=== PATIENT | male | born 1940 | race Caucasian/White ===

== ENCOUNTER 2016-10-05 13:31 | Inpatient (IN) | payer MEDICARE ==
[~2016-10-05] VITALS: Ht 170.2 cm; Wt 117.3 kg
[~2016-10-05 13:31] MED LIST: CIPR500T4 PO; TRAM50TA2 PO
[2016-10-05] MEDS ORDERED: PREDNISONE (14:11)
[2016-10-05] MEDS ORDERED: DIOVAN (14:12)
[2016-10-05] MEDS ORDERED: MELOXICAM (14:13)
[2016-10-05] MEDS ORDERED: ASPI-999 PO (14:13)
[2016-10-05] MEDS ORDERED: METOPROLOL (14:13)
--- NOTE | 2016-10-05 14:20 | ED General ---
General Chief Complaint: Lower Extremity Stated Complaint: LT LEG PAIN//FOOT DISCOLORED Nursing Triage Note: ARRIVED VIA WC FROM HOME. COMPLAINS OF PAIN IN LEFT GROIN TO KNEE STARTING SEVERAL DAYS AGO. Nursing Sepsis Screen: No Definite Risk Source of Information: Patient, Family Exam Limitations: No Limitations History of Present Illness Time Seen by Provider: 14:12 Initial Comments The patient is a 76-year-old white male who appears distressed. He apparently has been ill for 3 days or more but refused to come to the emergency room. He is hard to pin down relative to his complaint. He states that he hurts from the head to the knees bilaterally. He denies a fever. He has been scarcely able to stand or walk for the past 3 days. He does not disclose but the family states that about a month ago he saw Dr. Herring and was given meloxicam and steroids for about 2 weeks and improved. Once the medications were discontinued he slipped back to being as bad or worse than before. He apparently complains of left hip pain most often. There has been no fall or other injury. They also states that over the weekend and seemed as if his left foot was discolored. He describes pain from the left lower abdomen to the mid thigh. Timing/Duration: 3-4 Days Associated Systoms: Diaphoresis, Shortness of Air, Weakness, Other (pain from his head to his knees) Allergies and Home Medications Allergies Coded Allergies: Penicillins (Verified Allergy, Unknown, 08/04/05) Home Medications Aspirin 81 Mg Tab.chew, 81 MG PO DAILY, (Reported) [Diovan] , (Reported) [Meloxicam] , (Reported) [Metoprolol] , (Reported) [Prednisone] , (Reported) Constitutional: see HPI EENTM: no symptoms reported Respiratory: short of breath Cardiovascular: see HPI, edema, Hx of Intervention, vascular heart diseas Gastrointestinal: abdominal pain (LLQ) Genitourinary: no symptoms reported Musculoskeletal: muscle pain, muscle weakness Psychiatric/Neurological: Other (feet especially left discolored yesterday) Hematologic/Lymphatic: No Symptoms Reported Immunological/Allergic: no symptoms reported Past Wmomnwh-Zckxin-Uunilt Hx Patient Social History Alcohol Use: Denies Use Recreational Drug Use: No Smoking Status: Former Smoker Recent Foreign Travel: No Contact w/Someone Who Travel: No Recent Infectious Disease Expo: No Immunizations Up To Date Tetanus Booster (TDap): Unknown Surgeries HX Surgeries: Yes Surgeries: Adenoidectomy, Tonsillectomy Respiratory Hx Respiratory Disorders: No Cardiovascular Hx Cardiac Disorders: Yes Cardiac Disorders: Heart Attack, Hypertension Neurological Hx Neurological Disorders: No Reproductive System Hx Reproductive Disorders: No Sexually Transmitted Disease: No HIV/AIDS: No Genitourinary Hx Genitourinary Disorders: No Gastrointestinal Hx Gastrointestinal Disorders: No Musculoskeletal Hx Musculoskeletal Disorders: Yes (PAIN) Endocrine Hx Endocrine Disorders: No HEENT HX ENT Disorders: No Cancer Hx Cancer: No Psychosocial Hx Psychiatric Problems: No Integumentary HX Skin/Integumentary Disorder: No Blood Transfusions Hx Blood Disorders: No Adverse Reaction to a Blood Tr: No Family Medical History Significant Family History: No Pertinent Family Hx Physical Exam Vital Signs Vital Sign - Last 12Hours 10/05/16 14:05 Temp 97.3 Pulse 60 Resp 18 B/P (MAP) 91/74 Pulse Ox 98 Capillary Refill : Less Than 3 Seconds General Appearance: Moderate Distress (dyspnea and scarcely able to stand) Eyes: Bilateral Eye Normal Inspection HEENT: Normal ENT Inspection Neck: Other (very short neck no JVD) Respiratory: Other (barrel chest, tachypneic, decreased breath sounds) Cardiovascular: Tachycardia Gastrointestinal: Tenderness (left lower quadrant and over the pelvis) Back: Normal Inspection, No CVA Tenderness, No Vertebral Tenderness Extremity: Other (both feet are cool to touch and with 1-2+ edema. Palpable posterior tibial pulse on right) Neurologic/Psychiatric: Alert Lymphatic: No Adenopathy Progress/Results/Core Measures Results/Orders Lab Results Laboratory Tests Test 10/05/16 14:35 10/05/16 14:45 Range/Units Blood Gas Puncture Site RT RAD Blood Gas Patient Temperature 96.6 Arterial Blood pH 7.46 H 7.37-7.43 Arterial Blood Partial Pressure CO2 31 L 35-45 MMHG Arterial Blood Partial Pressure O2 88 79-93 MMHG Arterial Blood HCO3 22 L 23-27 MMOL/L Arterial Blood Total CO2 23.1 21.0-31.0 MMOL/L Arterial Blood Oxygen Saturation 98 94-100 % Arterial Blood Base Excess -1.4 -2.5-2.5 MMOL/L Karel Test YES-POS Blood Gas Ventilator Setting NO Blood Gas Inspired Oxygen ROOM AIR White Blood Count 13.9 H 4.3-11.0 10^3/uL Red Blood Count 4.19 L 4.35-5.85 10^6/uL Hemoglobin 13.7 13.3-17.7 G/DL Hematocrit 40 40-54 % Mean Corpuscular Volume 95 80-99 FL Mean Corpuscular Hemoglobin 33 25-34 PG Mean Corpuscular Hemoglobin Concent 35 32-36 G/DL Red Cell Distribution Width 14.9 H 10.0-14.5 % Platelet Count 210 130-400 10^3/uL Mean Platelet Volume 11.7 H 7.4-10.4 FL Neutrophils (%) (Auto) 76 H 42-75 % Lymphocytes (%) (Auto) 13 12-44 % Monocytes (%) (Auto) 10 0-12 % Eosinophils (%) (Auto) 1 0-10 % Basophils (%) (Auto) 0 0-10 % Neutrophils # (Auto) 10.6 H 1.8-7.8 X 10^3 Lymphocytes # (Auto) 1.7 1.0-4.0 X 10^3 Monocytes # (Auto) 1.3 H 0.0-1.0 X 10^3 Eosinophils # (Auto) 0.2 0.0-0.3 10^3/uL Basophils # (Auto) 0.0 0.0-0.1 10^3/uL Sodium Level 141 135-145 MMOL/L Potassium Level 3.9 3.6-5.0 MMOL/L Chloride Level 107 98-107 MMOL/L Carbon Dioxide Level 24 21-32 MMOL/L Anion Gap 10 5-14 MMOL/L Blood Urea Nitrogen 41 H 7-18 MG/DL Creatinine 1.50 H 0.60-1.30 MG/DL Estimat Glomerular Filtration Rate 45 BUN/Creatinine Ratio 27 H 0-20 Glucose Level 100 70-105 MG/DL Calcium Level 9.2 8.5-10.1 MG/DL Total Bilirubin 1.4 H 0.1-1.0 MG/DL Aspartate Amino Transf (AST/SGOT) 14 5-34 U/L Alanine Aminotransferase (ALT/SGPT) 14 0-55 U/L Alkaline Phosphatase 83 40-136 U/L Troponin I < 0.30 <0.30 NG/ML Total Protein 6.4 6.4-8.2 GM/DL Albumin 3.4 3.2-4.5 GM/DL My Orders Orders - STEPHAN FUNES MD Ekg Tracing (10/05/16 14:07) Arterial Blood Gas (10/05/16 14:07) Cbc With Automated Diff (10/05/16 14:07) Comprehensive Metabolic Panel (10/05/16 14:07) Troponin I (10/05/16 14:07) Chest 1 View, Ap/Pa Only (10/05/16 14:07) Hydromorphone Injection (Dilaudid Inject (10/05/16 15:30) Ct Abdomen/Pelvis Wo (10/05/16 15:44) Medications Given in ED Current Medications Medications Dose Ordered Sig/Bam Route Start Time Stop Time Status Last Admin Dose Admin Hydromorphone HCl 0.5 mg ONCE ONCE IVP 10/05/16 15:30 10/05/16 15:31 DC 10/05/16 15:44 0.5 MG Vital Signs/I&O Vital Sign - Last 12Hours 10/05/16 14:05 Temp 97.3 Pulse 60 Resp 18 B/P (MAP) 91/74 Pulse Ox 98 Blood Pressure Mean: 80 Departure Communication Progress Notes CT scan reviewed by me. There appears to be a left subcapital femur fracture. This is confirmed by phone call from [phone] Caceres who is on ortho call today. The patient will be admitted and definitive treatment scheduled for tomorrow afternoon. The patient and his family were notified of this. Impression Impression: Primary Impression: left subcapital femur fracture Disposition: ADMITTED INPATIENT Condition: Stable/Unchanged Decision to Admit Reason: Admit from ER (Trauma) Decision to Admit/Date: Oct 05, 2016 Time/Decision to Admit Time: 16:29 Departure-Patient Inst. Referrals: MARGARITA HERRING MD (PCP/Family) Primary Care Physician STEPHAN FUNES MD Oct 05, 2016 14:20
[2016-10-05 14:48] LABS: ABG BASE EXCESS -1.4 MMOL/L (-2.5-2.5); ABG HCO3 22 MMOL/L (23-27); ABG OXYGEN SATURATION 98 % (94-100); ABG PCO2 31 MMHG (35-45); ABG PH 7.46 (7.37-7.43); ABG PO2 88 MMHG (79-93); ABG TCO2 23.1 MMOL/L (21.0-31.0)
[2016-10-05 14:51] LABS: ALLENS TEST YES-POS; PATIENT TEMP 96.6
--- NOTE | 2016-10-05 14:52 | Diagnostic Imaging Report ---
EXAMINATION: Portable upright radiograph of the chest. INDICATION: Left groin pain. Findings: There is a old rib fracture and a posterior left seventh rib fracture seen. No focal infiltrates. The heart size is moderately enlarged. No pulmonary edema. No effusion or pneumothorax. Mediastinum and tho appear unremarkable. IMPRESSION: Cardiomegaly. Dictated by: Dictated on workstation # [id number]
[2016-10-05 14:56] LABS: BASOPHILS % (AUTO) 0 % (0-10); EOSINOPHILS # (AUTO) 0.2 10^3/uL (0.0-0.3); EOSINOPHILS % (AUTO) 1 % (0-10); LYMPHOCYTES # (AUTO) 1.7 X 10^3 (1.0-4.0); LYMPHOCYTES % (AUTO) 13 % (12-44); MEAN CORPUSCULAR HEMOGLOBIN 33 PG (25-34); MEAN CORPUSCULAR HGB CONC 35 G/DL (32-36); MEAN CORPUSCULAR VOLUME 95 FL (80-99); MEAN PLATELET VOLUME 11.7 FL (7.4-10.4); MONOCYTES # (AUTO) 1.3 X 10^3 (0.0-1.0); MONOCYTES % (AUTO) 10 % (0-12); NEUTROPHILS # (AUTO) 10.6 X 10^3 (1.8-7.8); NEUTROPHILS % (AUTO) 76 % (42-75); PLATELET COUNT 210 10^3/uL (130-400); RED BLOOD COUNT 4.19 10^6/uL (4.35-5.85); RED CELL DISTRIBUTION WIDTH 14.9 % (10.0-14.5); WHITE BLOOD COUNT 13.9 10^3/uL (4.3-11.0)
[2016-10-05 15:16] LABS: ALANINE AMINOTRANSFERASE 14 U/L (0-55); ALBUMIN 3.4 GM/DL (3.2-4.5); ANION GAP 10 MMOL/L (5-14); ASPARTATE AMINO TRANSFERASE 14 U/L (5-34); BILIRUBIN,TOTAL 1.4 MG/DL (0.1-1.0); BLOOD UREA NITROGEN 41 MG/DL (7-18); BUN/CREATININE RATIO 27 (0-20); CALCIUM 9.2 MG/DL (8.5-10.1); CARBON DIOXIDE 24 MMOL/L (21-32); CHLORIDE 107 MMOL/L (98-107); GFR ESTIMATED 45; GLUCOSE 100 MG/DL (70-105); HEMOLYSIS 15 (-100-29); LIPEMIA 24 (-100-49); POTASSIUM 3.9 MMOL/L (3.6-5.0); SODIUM 141 MMOL/L (135-145); TOTAL PROTEIN 6.4 GM/DL (6.4-8.2)
[2016-10-05 15:22] LABS: TROPONIN I < 0.30 NG/ML (<0.30)
[2016-10-05] MEDS ORDERED: HYDROmorphone (DILAUDID) 2 MG/ML VIAL IVP ONE (15:30)
--- NOTE | 2016-10-05 16:18 | Diagnostic Imaging Report ---
PROCEDURE: CT abdomen and pelvis without contrast. TECHNIQUE: Multiple contiguous axial images were obtained through the abdomen and pelvis without the use of intravenous contrast. INDICATION: Left lower quadrant abdominal pain. Hip pain. COMPARISON: 07/14/2015. FINDINGS: Included views of the lung bases are unremarkable. Note is made of bulky calcified aortic and coronary atherosclerosis. Calcified left hilar lymph nodes are also noted. CT abdomen: There is colonic diverticulosis, but no CT evidence of acute diverticulitis. Moderate air and stool are seen scattered throughout the colon. Small bowel loops are nondistended. Normal appendix cannot be adequately identified, but there is no pericecal inflammation. Hypodense hepatic and bilateral renal cysts are noted. The spleen, pancreas, and adrenal glands have an unremarkable noncontrast CT appearance. There is no loculated fluid collection, free fluid, nor free air within the abdomen. No abnormal mesenteric or retroperitoneal adenopathy is seen. There is diffuse calcified aortic and arterial atherosclerosis. CT pelvis: Urinary bladder is unopacified. No calculi are seen within the urinary bladder. There is no loculated fluid collection, free fluid, nor free air within the pelvis. No abnormal adenopathy is seen. Evaluation of the bony structures demonstrates acute oblique oriented fracture through the proximal left femur. The fracture line extends inferiorly from the subcapital region into the femoral neck. There is mild varus angulation of the distal fracture fragment and mild displacement at the fracture site. Femoroacetabular joint space is otherwise maintained. IMPRESSION: 1. Acute fracture of the proximal left femur as described above. 2. Moderate colonic air and stool. Please correlate for constipation. 3. Colonic diverticulosis, but no CT evidence of acute diverticulitis. Dictated by: Dictated on workstation # [id number]
[2016-10-05 17:30] VITALS: BP 144/71
[2016-10-05] MEDS ORDERED: HYDROmorphone (DILAUDID) 2 MG/ML VIAL IVP PRN (17:30)
[2016-10-05] MEDS ORDERED: CATHETER FLUSH 10 ML SYR IV PRN (18:00)
[2016-10-05] MEDS: NS IV 1000 ML 1,000 ML IV SCH (18:08)
[2016-10-05 19:11] VITALS: BP 139/65
[2016-10-05] MEDS ORDERED: LIDOCAINE UROJET 2% GEL 10 ML PKG TOP NR (19:15)
--- OUTSIDE RECORDS SUMMARY | 2016-10-05 23:54 | XMS REPORT | Continuity of Care Document ---
Author Author [facility] Organization [facility] Address Unknown Phone Unavailable Allergies Active Description Code Type Severity Reaction Onset Reported/Identified Relationship to Patient Clinical Status Yes Penicillins [id number] Drug Allergy Unknown N/A 08/04/2005 Medications Problems Date Dx Coded Attending Type Code Diagnosis Diagnosed By 07/07/2015 MARGARITA DUARTE MD Ot G47.33 OBSTRUCTIVE SLEEP APNEA (ADULT) (PEDIATR 07/07/2015 MARGARITA DUARTE MD, Ot G47.61 PERIODIC LIMB MOVEMENT DISORDER 07/16/2015 KEVIN CASTRO Ot I70.0 07/16/2015 KEVIN CASTRO Ot J32.9 07/16/2015 KEVIN CASTRO Ot K57.90 07/16/2015 KEVIN CASTRO Ot K76.89 07/16/2015 KEVIN CASTRO Ot M50.31 07/16/2015 KEVIN CASTRO Ot M50.32 07/16/2015 KEVIN CASTRO Ot S30.1XXA 07/16/2015 KEVIN CASTRO Ot S70.01XA 07/16/2015 KEVIN CASTRO Ot W06.XXXA 07/16/2015 KEVIN CASTRO Ot Y92.009 07/16/2015 KEVIN CASTRO Ot Y99.8 08/08/2015 KEVIN CASTRO Ot I70.0 ATHEROSCLEROSIS OF AORTA 08/08/2015 KEVIN CASTRO Ot J32.9 CHRONIC SINUSITIS, UNSPECIFIED 08/08/2015 KEVIN CASTRO Ot K57.90 DVRTCLOS OF INTEST, PART UNSP, W/O PERF 08/08/2015 KEVIN CASTRO Ot K76.89 OTHER SPECIFIED DISEASES OF LIVER 08/08/2015 KEVIN CASTRO Ot M50.31 OTHER CERVICAL DISC DEGENERATION, HIGH 08/08/2015 KEVIN CASTRO Ot M50.32 OTHER CERVICAL DISC DEGENERATION, MID- CE 08/08/2015 KEVIN CASTRO Ot S30.1XXA CONTUSION OF ABDOMINAL WALL, INITIAL ENC 08/08/2015 KEVIN CASTRO Ot S70.01XA CONTUSION OF RIGHT HIP, INITIAL ENCOUNTE 08/08/2015 KEVIN CASTRO Ot W06.XXXA FALL FROM BED, INITIAL ENCOUNTER 08/08/2015 KEVIN CASTRO Ot Y92.[address] IN [facility] NON-INSTIT[facility] ( PRIVATE 08/08/2015 KEVIN CASTRO Ot Y99.8 OTHER EXTERNAL CAUSE STATUS Procedures Results Encounters ACCT No. Visit Date/Time Discharge Status Pt. Type Provider Facility Loc./Unit Complaint [id number] 07/14/2015 13:42:00 2015 18:27:00 DIS Emergency KEVIN CASTRO [facility] ER [id number] 07/06/2015 20:30:00 2015 06:45:00 DIS Outpatient MARGARITA DUARTE MD [facility] SLEEP [id number] 10/10/2012 15:33:00 2012 23:59:59 CLS Outpatient
[2016-10-06] VITALS (7 sets, daily range): BP systolic 125–160; BP diastolic 56–73
[2016-10-06] MEDS: HYDROmorphone (DILAUDID) 2 MG/ML VIAL IV PRN ×3 (02:53→12:48)
[2016-10-06] MEDS ORDERED: MELO15TA14 PO (08:40)
[2016-10-06] MEDS ORDERED: PRD10T PO (08:40)
[2016-10-06] MEDS ORDERED: METO-272 PO (08:40)
[2016-10-06] MEDS ORDERED: VALS1TAB5 PO (08:40)
[2016-10-06] MEDS ORDERED: IBUP-30 PO (08:40)
[2016-10-06] MEDS ORDERED: ASPI-983 PO (08:40)
--- OUTSIDE RECORDS SUMMARY | 2016-10-06 08:58 | XMS REPORT | Continuity of Care Document ---
Author Author [facility] Organization [facility] Address Unknown Phone Unavailable Allergies Active Description Code Type Severity Reaction Onset Reported/Identified Relationship to Patient Clinical Status Yes Penicillins [id number] Drug Allergy Unknown N/A 08/04/2005 Medications Problems [...] KEVIN CASTRO Ot Y92.[address] IN [facility] NON-[facility] ( PRIVATE 08/08/2015 KEVIN CASTRO Ot Y99.8 OTHER EXTERNAL CAUSE STATUS Procedures Results Encounters ACCT No. Visit Date/Time Discharge Status Pt. Type Provider Facility Loc./Unit Complaint [id number] 07/14/2015 13:42:00 2015 18:27:00 DIS Emergency KEVIN CASTRO [facility] ER [id number] 07/06/2015 20:30:00 2015 06:45:00 DIS Outpatient MARGARITA DUARTE MD [facility] SLEEP [id number] 10/10/2012 15:33:00 2012 23:59:59 CLS Outpatient
[2016-10-06 09:14] LABS: BASOPHILS % (AUTO) 0 % (0-10); EOSINOPHILS # (AUTO) 0.4 10^3/uL (0.0-0.3); EOSINOPHILS % (AUTO) 3 % (0-10); LYMPHOCYTES # (AUTO) 1.4 X 10^3 (1.0-4.0); LYMPHOCYTES % (AUTO) 12 % (12-44); MEAN CORPUSCULAR HEMOGLOBIN 32 PG (25-34); MEAN CORPUSCULAR HGB CONC 33 G/DL (32-36); MEAN CORPUSCULAR VOLUME 96 FL (80-99); MEAN PLATELET VOLUME 11.5 FL (7.4-10.4); MONOCYTES # (AUTO) 0.9 X 10^3 (0.0-1.0); MONOCYTES % (AUTO) 8 % (0-12); NEUTROPHILS # (AUTO) 8.5 X 10^3 (1.8-7.8); NEUTROPHILS % (AUTO) 76 % (42-75); PLATELET COUNT 167 10^3/uL (130-400); RED BLOOD COUNT 4.06 10^6/uL (4.35-5.85); RED CELL DISTRIBUTION WIDTH 14.7 % (10.0-14.5); WHITE BLOOD COUNT 11.2 10^3/uL (4.3-11.0)
--- NOTE | 2016-10-06 09:19 | History & Physical-Hospitalist ---
HPI History of Present Illness: HPI/Chief Complaint CC: Left hip fracture HPI: This is a 76-year-old white male clinic patient of Dr. Herring the presents to the emergency room with complaints of pain all over her that workup ensued processing shortness of breath and overall poor clinical performance but ended up obtaining CT scan showing a left hip fracture that he had been stating he's had arthritis pain for 8 months and does not recall which fall that he could've sustained this left hip fracture during. He lives at home with his and it doesn't appear that he is very active. He is noncompliant with sleep apnea treatment since the mask makes and claustrophobic. At this current time he does have wheezing on exam which I will order DuoNeb nebulizer treatments and he is on the schedule for hip fracture repair by Dr. Caceres at 4 p.m. today. Source: patient Exam Limitations: no limitations Date Seen 10/06/16 Time Seen by Provider: 09:30 Attending Physician Dianna Buckner Floyd R MD Referring Physician Date of Admission Oct 05, 2016 at 16:35 Home Medications & Allergies Home Medications Reviewed patient Home Medication Reconciliation Form Allergies Allergies Coded Allergies Penicillins (Verified Allergy, Unknown, 10/05/16) Past Vvifnwu-Tttthr-Jxkafp Hx Patient Social History Marrital Status: Employed/Student: retired Alcohol Use: Denies Use Recreational Drug Use: No Smoking Status: Former Smoker Type Used: Cigarettes Physical Abuse Screen: No Sexual Abuse: No Recent Foreign Travel: No Contact w/other who traveled: No Recent Hopitalizations: No Recent Infectious Disease Expo: No Immunizations Up To Date Tetanus Booster (TDap): Unknown Seasonal Allergies Seasonal Allergies: No Surgeries HX Surgeries: Yes Surgeries: Adenoidectomy, Tonsillectomy Respiratory Hx Respiratory Disorders: Yes Respiratory Disorders: COPD, Sleep Apnea Cardiovascular Hx Cardiovascular Disorders: Yes Cardiac Disorders: Heart Attack, Hypertension Neurological Hx Neurological Disorders: No Reproductive System Hx Reproductive Disorders: No Sexually Transmitted Disease: No HIV/AIDS: No Genitourinary Hx Genitourinary Disorders: No Gastrointestinal Hx Gastrointestinal Disorders: No Musculoskeletal Hx Musculoskeletal Disorders: Yes (PAIN) Musculoskeletal Disorders: Arthritis Endocrine Hx Endocrine Disorders: No HEENT HX ENT Disorders: No Cancer Hx Cancer: No Psychosocial Hx Psychiatric Problems: No Integumentary HX Skin/Integumentary Disorder: No Blood Transfusions Hx Blood Disorders: No Adverse Reaction to a Blood Tr: No Family Medical History Significant Family History: No Pertinent Family Hx Family Hx: Patient reports no known family medical history. Review of Systems Date Seen by Provider: Oct 06, 2016 Time Seen by Provider: 09:00 Constitutional: no symptoms reported EENTM: no symptoms reported Respiratory: no symptoms reported Cardiovascular: no symptoms reported Gastrointestinal: no symptoms reported Genitourinary: no symptoms reported Musculoskeletal: joint pain Skin: no symptoms reported Psychiatric/Neurological: No Symptoms Reported All Other Systems Reviewed Negative Unless Noted: Yes Physical Exam Physical Exam Vital Signs Vital Sign - Last 12Hours 10/05/16 14:05 Temp 97.3 Pulse 60 Resp 18 B/P (MAP) 91/74 Pulse Ox 98 Capillary Refill : Less Than 3 SecondsLess Than 3 Seconds General Appearance: No Apparent Distress, WD/WN, Chronically ill, Obese Eyes: Bilateral Eye Normal Inspection, Bilateral Eye PERRL HEENT: PERRL/EOMI, Normal ENT Inspection, Pharynx Normal Neck: Full Range of Motion, Normal Inspection, Non Tender, Supple, Carotid Bruit Respiratory: Chest Non Tender, Normal Breath Sounds, No Accessory Muscle Use, No Respiratory Distress, Decreased Breath Sounds, Wheezing Cardiovascular: Regular Rate, Rhythm, No Edema, No Gallop, No JVD, No Murmur, Normal Peripheral Pulses Gastrointestinal: Normal Bowel Sounds, No Organomegaly, No Pulsatile Mass, Non Tender, Soft Back: Normal Inspection, No CVA Tenderness, No Vertebral Tenderness Extremity: Normal Capillary Refill, Normal Inspection, Normal Range of Motion, Non Tender, No Calf Tenderness, No Pedal Edema Neurologic/Psychiatric: Alert, Oriented x3, No Motor/Sensory Deficits, Normal Mood/Affect Skin: Normal Color, Warm/Dry Lymphatic: No Adenopathy Results Results/Procedures Lab Laboratory Tests 10/05/16 14:45 10/06/16 09:05 Assessment/Plan Admission Diagnosis Assessment: Acute left hip fracture Sleep apnea noncompliant with CPAP HTN OA Obesity Wheezing on exam Leukocytosis Assessment and Plan Plan: Proceed on with hip fracture repair since benefits outweigh medical risks and it is prudent to proceed on with repair Duoneb neb treatment now w/IS Monitor labs Close monitoring for MANUEL patient Clinical Quality Measures DVT/VTE Risk/Contraindication: Risk Factor Score Per Nursin RFS Level Per Nursing on Admit: 4+=Very High DIANNA BUCKNER DO Oct 06, 2016 09:19
[2016-10-06 09:32] LABS: CARBON DIOXIDE 23 MMOL/L (21-32); CHLORIDE 106 MMOL/L (98-107); POTASSIUM 4.1 MMOL/L (3.6-5.0); SODIUM 138 MMOL/L (135-145)
[2016-10-06 09:33] LABS: ALANINE AMINOTRANSFERASE 14 U/L (0-55); ALBUMIN 3.1 GM/DL (3.2-4.5); ANION GAP 9 MMOL/L (5-14); ASPARTATE AMINO TRANSFERASE 15 U/L (5-34); BILIRUBIN,TOTAL 1.8 MG/DL (0.1-1.0); BLOOD UREA NITROGEN 31 MG/DL (7-18); BUN/CREATININE RATIO 32 (0-20); CALCIUM 8.6 MG/DL (8.5-10.1); CREATININE SERUM 0.96 MG/DL (0.60-1.30); GFR ESTIMATED > 60; GLUCOSE 86 MG/DL (70-105); HEMOLYSIS 7 (-100-29); ICTERUS 1.7 (-100-1.9); LIPEMIA -1 (-100-49); TOTAL PROTEIN 5.4 GM/DL (6.4-8.2)
[2016-10-06] MEDS ORDERED: [UNRECOGNIZED DRUG - OTHER] PO PRN (09:45)
[2016-10-06] MEDS ORDERED: HYDROCHLOROTHIAZIDE PO PRN (09:45)
[2016-10-06] MEDS ORDERED: VALSARTAN PO PRN (09:45)
[2016-10-06] MEDS: RT-ALBUTEROL/IPRATROPIUM 3 ML (DUONEB) VIAL INH SCH ×4 (11:36→22:10)
[2016-10-06] MEDS: NS IV 1000 ML 1,000 ML IV SCH (12:49)
[2016-10-06] MEDS ORDERED: VANCOMYCIN INJECTION 1,000 MG in NS (IVPB) 250 ML IV NR (13:00)
[2016-10-06] MEDS: HYDROCHLOROTHIAZIDE 12.5 MG (HCTZ) CAP PO SCH (14:23)
[2016-10-06] MEDS: VALSARTAN 80 MG (DIOVAN) TAB PO SCH (14:23)
[2016-10-06] MEDS ORDERED: GENTAMICIN 40 MG/ML 2 ML INJ SDV ONE (15:15)
[2016-10-06] MEDS ORDERED: LIDOCAINE PF 0.5% 50 ML (XYLOCAINE) VIAL ONE (15:36)
[2016-10-06] MEDS ORDERED: SEVOFLURANE (ULTANE) 15 ML INHAL SOLN ONE ×3 (15:36→18:30)
[2016-10-06] MEDS ORDERED: ONDANSETRON 4 MG/2 ML (SDV) Z0FRAN ONE ×2 (15:36→17:46)
[2016-10-06] MEDS ORDERED: proPOfol 200 MG/20 ML (DIPRIVAN) VIAL IV ONE (15:36)
[2016-10-06] MEDS ORDERED: DEXAMETHASONE PF 10 MG/ML (DECADRON) VIAL ONE (15:36)
[2016-10-06] MEDS ORDERED: MIDAZOLAM 2 MG/2 ML (VERSED) VIAL ONE (15:37)
[2016-10-06] MEDS ORDERED: fentaNYL INJECTION 100 MCG/2 ML AMP ONE ×3 (15:37→17:46)
[2016-10-06] MEDS ORDERED: morphine INJ 10 MG/ML 1ML (SYR OR VIAL) ONE (17:46)
[2016-10-06] MEDS ORDERED: LACTATED RINGERS 2,000 ML IV ONE (18:30)
[2016-10-06] MEDS: morphine INJ 10 MG/ML 1ML (SYR OR VIAL) IVP PRN ×2 (18:56→19:00)
--- NOTE | 2016-10-06 19:18 | Diagnostic Imaging Report ---
INDICATION: Status post left hip arthroplasty. COMPARISON: CT abdomen and pelvis from 10/05/16. FINDINGS AND IMPRESSION: Single AP view of the pelvis demonstrates left unipolar arthroplasty with components in good position. No acute periprosthetic fracture. Dictated by: Dictated on workstation # [id number]
[2016-10-06] MEDS ORDERED: ONDANSETRON 4 MG/2 ML (SDV) Z0FRAN IVP PRN (20:00)
[2016-10-06] MEDS ORDERED: fentaNYL INJECTION 100 MCG/2 ML AMP IVP PRN (20:00)
[2016-10-07] VITALS (8 sets, daily range): BP systolic 94–146; BP diastolic 50–73
[2016-10-07] MEDS: LACTATED RINGERS 1,000 ML IV SCH ×3 (00:17→12:50)
[2016-10-07] MEDS: RT-ALBUTEROL/IPRATROPIUM 3 ML (DUONEB) VIAL INH SCH ×6 (02:05→22:10)
[2016-10-07] MEDS: VANCOMYCIN INJECTION 1,000 MG in NS (IVPB) 250 ML IV SCH ×2 (04:37→15:49)
[2016-10-07] MEDS: morphine INJ 4 MG/ML 1 ML (VIAL/SYRINGE) IVP PRN ×3 (04:37→20:11)
[2016-10-07 05:34] LABS: BASOPHILS % (AUTO) 0 % (0-10); EOSINOPHILS % (AUTO) 0 % (0-10); LYMPHOCYTES # (AUTO) 0.4 X 10^3 (1.0-4.0); LYMPHOCYTES % (AUTO) 3 % (12-44); MEAN CORPUSCULAR HEMOGLOBIN 32 PG (25-34); MEAN CORPUSCULAR HGB CONC 33 G/DL (32-36); MEAN CORPUSCULAR VOLUME 97 FL (80-99); MEAN PLATELET VOLUME 11.1 FL (7.4-10.4); MONOCYTES % (AUTO) 7 % (0-12); NEUTROPHILS # (AUTO) 12.8 X 10^3 (1.8-7.8); NEUTROPHILS % (AUTO) 90 % (42-75); PLATELET COUNT 167 10^3/uL (130-400); RED CELL DISTRIBUTION WIDTH 14.4 % (10.0-14.5); WHITE BLOOD COUNT 14.3 10^3/uL (4.3-11.0)
[2016-10-07 05:55] LABS: ALANINE AMINOTRANSFERASE 19 U/L (0-55); ALBUMIN 2.8 GM/DL (3.2-4.5); ANION GAP 8 MMOL/L (5-14); ASPARTATE AMINO TRANSFERASE 22 U/L (5-34); BILIRUBIN,TOTAL 1.5 MG/DL (0.1-1.0); BLOOD UREA NITROGEN 26 MG/DL (7-18); BUN/CREATININE RATIO 24; CALCIUM 8.4 MG/DL (8.5-10.1); CARBON DIOXIDE 25 MMOL/L (21-32); CHLORIDE 104 MMOL/L (98-107); CREATININE SERUM 1.09 MG/DL (0.60-1.30); GFR ESTIMATED > 60; GLUCOSE 128 MG/DL (70-105); POTASSIUM 4.8 MMOL/L (3.6-5.0); SODIUM 137 MMOL/L (135-145); TOTAL PROTEIN 5.4 GM/DL (6.4-8.2)
[2016-10-07] MEDS ORDERED: BACITRACIN OINTMENT 28 GM TUBE TOP SCH (07:15)
[2016-10-07] MEDS ORDERED: BACITRACIN OINTMENT 28 GM TUBE TOP PRN (07:30)
[2016-10-07] MEDS: HYDROCHLOROTHIAZIDE 12.5 MG (HCTZ) CAP PO SCH (08:30)
[2016-10-07] MEDS: VALSARTAN 80 MG (DIOVAN) TAB PO SCH (08:30)
[2016-10-07] MEDS: ASPIRIN 325 MG (5 GR) TABLET PO SCH (08:30)
[2016-10-07] MEDS: meTOproloL SUCCINATE 50 MG (TOPROL XL) TAB PO SCH (08:30)
--- NOTE | 2016-10-07 09:00 | Physical Therapy Evaluation ---
PT Evaluation-General Medical Diagnosis Admission Date Oct 05, 2016 at 16:35 Medical Diagnosis: left hip trochanteric fx Onset Date: Oct 06, 2016 Therapy Diagnosis Therapy Diagnosis: impaired transfers and gait Height/Weight Height (Feet): 5 Height (Inches): 7.00 Weight (Pounds): 258 Weight (Ounces): 8.0 Precautions Precautions/Isolations: Fall Prevention, Standard Precautions Weight Bear Status Weight Bearing Restriction: Weight Bearing/Tolerated Location Restriction: L LE Comments hip precautions Referral Reason for Referral: Evaluation/Treatment, Strengthening, Gait Medical History Pertinent Medical History: Arthritis, CAD, Fractures, HTN Social History Home: Single Level Current Living Status: Spouse Entry Into Home: Stairs With Railing PT Steps Into Home: 3 Pt reports his is not able to provide physical assistance. Prior/Core FIM Prior Level of Function Functional [place] Measure 0=Not Assessed/NA 4=Minimal Assistance 1=Total Assistance 5=Supervision or Setup 2=Maximal Assistance 6=Modified [place] 3=Moderate Assistance 7=Complete [place] Bed Mobility: 6 Transfers (B,C,W/C) (FIM): 6 Gait: 6 (crutches and/or cane) Locomotion: 6 PT Evaluation-Current Subjective Pt presented to the ER 10/05/16 with complaint of total body pain and shortness of breath. CT scan identified a left trochanteric fx. Pt possibly has had the fx for 8 months. Underwent bi polar hip arthroplasty on the (L) 10/06/16. Objective Patient Orientation: Normal For Age Attachments: Gonzalez Catheter, IV ROM/Strength ROM Lower Extremities knee flexion to 90 deg (B), (L) hip flex 80 deg, (R) hip flexion 90 deg, (L) hi abd 10 deg, (R) hip abd 20 deg Strenght Lower Extremities right LE gross 4/5, left hip flex 1/5, abd 1/5, knee ext 4/5 Sensory Vision: Functional Hearing: Functional Sensation Right Upper Extremit: Intact Sensation Left Upper Extremity: Intact Sensation Right Lower Extremit: Intact Sensation Left Lower Extremity: Intact Transfers Functional [place] Measure 0=Not Assessed/NA 4=Minimal Assistance 1=Total Assistance 5=Supervision or Setup 2=Maximal Assistance 6=Modified [place] 3=Moderate Assistance 7=Complete [place] Transfers (B, C, W/C) (FIM): 2 Scootin Supine to/from Sit: 2 Sit to/from Stand: 3 needs max physical assist to come to sitting and scoot to the edge of the bed. Sit to stand was stable and required moderate assist to rise to walker. Gait Mode of Locomotion: Walk Anticipated Mode of Locomotion: Walk Gait (FIM): 1 Distance (FIM): 1=up to 49 ft Distance: 3 steps Gait Level of Assist: 2 Gait Persons Needed: 1 Gait Assistive Device: FWW Comments/Gait Description slow and shuffled due to left hip weakness Balance Sitting Static: Fair Sitting Dynamic: Poor Standing Static: Poor Standing Dynamic: Poor Assessment/Needs Pt has LE weakness and lack of ROM in the (L) LE that is limiting bed mobility, transfers, and ambulation. Pt will benefit from physical therapy to restore functional mobility and facilitate a discharge to his prior living arrangement. Rehab Potential: Good Post Rehab Potential-Barriers: complex arthrities in multiple joints Equipment Needs FWW PT [employer] Goals [employer] Goals PT Usp Goals Time Frame: Oct 21, 2016 Transfers (B,C,W/C) (FIM): 5 Gait (FIM): 3 Gait distance (FIM): 6=890-99 ft Distance: 50 Gait Level of Assist: 5 Stairs (FIM): 2 # of Steps: 3 Stairs Level Of Assist: 4 PT Plan Problem List Problem List: Functional Strength, Balance, Gait, Transfer, Bed Mobility, ROM Treatment/Plan Treatment Plan: Continue Plan of Care Treatment Plan: Bed Mobility, Education, Functional Activity Omar, Functional Strength, Gait, Safety, Therapeutic Exercise, Transfers Treatment Duration: Oct 21, 2016 # of days/week 6 Visits Per Week: 11 Pt/Family Agrees w/Plan: Yes Safety Risks/Education Safety Risk Comments: hip precautions Patient Education: Gait Training, Transfer Techniques, Steps, Issued Written HEP Teaching Recipient: Patient Teaching Methods: Demonstration, Discussion Response to Teaching: Verbalize Understanding Discharge Recommendations Barriers to Progress arthritis in multiple joints Target Placement home Time/GCodes Time In: 750 Time Out: 830 Total Billed Treatment Time: 40 Total Billed Treatment visit, evaluation complex 40 minutes GUSTAVO DIAMOND PT Oct 07, 2016 09:00
[2016-10-07] MEDS: LACTULOSE SYRUP 10GM/15ML (ENULOSE) 30ML UDC PO SCH ×2 (09:47→19:59)
[2016-10-07] MEDS: SENNA W/DOCUSATE (SENOKOT S) TABLET PO SCH ×2 (09:47→19:59)
[2016-10-07] MEDS: HYDROcodone/APAP 5 MG/325 MG (LORTAB) TAB PO PRN ×3 (09:48→18:16)
[2016-10-07] MEDS: FLEET ENEMA ADULT 1 EA BTL PR SCH ×2 (10:00→19:54)
--- NOTE | 2016-10-07 10:43 | Anesthesia-General Post-Op ---
General Patient Condition Mental Status/LOC: Same as Preop Cardiovascular: Satisfactory Nausea/Vomiting: Absent Respiratory: Satisfactory Pain: Controlled Complications: Absent Post Op Complications Complications None Follow Up Care/Instructions Patient Instructions None needed. Anesthesia/Patient Condition Patient Condition Patient is doing well, no complaints, stable vital signs, no apparent adverse anesthesia problems. No complications reported per nursing. CONY MARIN CRNA Oct 07, 2016 10:43
--- NOTE | 2016-10-07 12:07 | Progress Note-Hospitalist ---
Progress Note HPI/CC on Admission CC: Left hip fracture HPI: This is a 76-year-old white male clinic patient of Dr. Herring the presents to the emergency room with complaints of pain all over her that workup ensued processing shortness of breath and overall poor clinical performance but ended up obtaining CT scan showing a left hip fracture that he had been stating he's had arthritis pain for 8 months and does not recall which fall that he could've sustained this left hip fracture during. He lives at home with his and it doesn't appear that he is very active. He is noncompliant with sleep apnea treatment since the mask makes and claustrophobic. At this current time he does have wheezing on exam which I will order DuoNeb nebulizer treatments and he is on the schedule for hip fracture repair by Dr. Caceres at 4 p.m. today. Progress Notes/Assess & Plan Date Seen 10/07/16 Time Seen by Provider: 10:00 Admission Dx/Process Assessment: Acute left hip fracture Sleep apnea noncompliant with CPAP HTN OA Obesity Wheezing on exam Leukocytosis Diagonsis/Assessment & Plan Chart Review: Had uncomplicated left hip fracture repair yesterday WBC 14.3 Hgb 11.5 CMP normal SW Review: Surgery yesterday Qualified for rehab Patient Interview: Pt was sitting upon interview and looks well Pt states that he has been in pain since 1964. Pt does not mind DC Gonzalez whenever possible Pt confirms using IS and receiving breathing treatments. Physical exam stable. Lungs sound much improved. Pt states that his last BM was four days ago. Pt was informed that he will be in In-pt rehab before DC. This will help expedite his recovery Labs were discussed and they look good No fever, vital signs stable, pleasant, improved, up in chair Regular rate and rhythm, clear to auscultation bilaterally improved wheezes from yesterday No edema Laboratory Tests 10/07/16 05:05 Assessment: Acute left hip fracture s/p repair POD # 1 Sleep apnea noncompliant with CPAP HTN OA Obesity Wheezing on exam improved Leukocytosis Plan: Proceeded on with hip fracture repair yesterday since benefits outweigh medical risks and it was prudent to proceed on with repair Duoneb neb treatment now w/IS Close monitoring for MANUEL patient Heplock IVF Lactulose/Miralax suppository Senna Check labs in am IRU tomorrow Scribed by Andreia La under the direct supervision of Dr. Weeks. GARIMA WEEKS DO Oct 07, 2016 12:07
[2016-10-07] MEDS: HYDROmorphone (DILAUDID) 2 MG/ML VIAL IV PRN (12:51)
--- NOTE | 2016-10-07 13:27 | Physical Therapy Daily Note ---
PT Daily Note-Current Subjective Patient in recliner pre tx, lots of family in the room. Patient has pain of 7/ 10. He has a lot of drainage in his left hip and the bandage and gown are pretty saturated. Will get patient back to bed so nurse can work on his dressings. Appearance Patient BTB post tx with nurse working on dressings, family in the room. Mental Status Patient Orientation: Normal For Age Attachments: Gonzalez Catheter, IV Transfers Functional [place] Measure 0=Not Assessed/NA 4=Minimal Assistance 1=Total Assistance 5=Supervision or Setup 2=Maximal Assistance 6=Modified [place] 3=Moderate Assistance 7=Complete IndependenceIRFPAI Quality Coding Scale 6 Independent with activity with or without an assistive device 5 Patient requires set up or clean up by helper. Patient completes activity by themselves 4 Supervision or touching assist (CGA). [place] provide cues , steadying assist 3 The helper provides less than half the effort to complete the activity 2 The helper provides more than half the effort to complete the activity 1 Dependent. The helper does all the effort to complete an activity 7 Patient refused to complete or attempt activity 9 The patient did not perform the activity before the current illness or injury 88 Not attempted due to Medical conditions or safety concerns Transfers (B, C, W/C) (FIM): 4 Scootin Rollin Supine to/from Sit: 4 Sit to/from Stand: 4 min assist to help get left leg back into bed Gait Training Gait (FIM): 1 Distance: 15' Gait Level of Assist: 4 Gait Persons Needed: 1 Gait Assistive Device: FWW Patient ambulated around the bed to the other side, antalgic and slow, good stepping Treatments bed mobility and transfers, ambulation Assessment Current Status: Fair Progress improved ambulation and endurance PT Snf Goals Weeder Thinner Goals PT Weeder Thinner Goals Time Frame: Oct 21, 2016 Transfers (B,C,W/C) (FIM): 5 Gait (FIM): 3 Gait distance (FIM): 2=065-41 ft Distance: 50 Gait Level of Assist: 5 Stairs (FIM): 2 # of Steps: 3 Stairs Level Of Assist: 4 PT Plan Problem List Problem List: Activity Tolerance, Functional Strength, Safety, Balance, Gait, Transfer, Bed Mobility, ROM Treatment/Plan Treatment Plan: Continue Plan of Care Treatment Plan: Bed Mobility, Education, Functional Activity Omar, Functional Strength, Gait, Safety, Therapeutic Exercise, Transfers Treatment Duration: Oct 21, 2016 Visits Per Week: 11 Safety Risks/Education Patient Education: Gait Training, Transfer Techniques, Correct Positioning, Safety Issues Teaching Recipient: Patient Teaching Methods: Demonstration, Discussion Response to Teaching: Reinforcement Needed Time/GCodes Time In: 1310 Time Out: 1325 Total Billed Treatment Time: 15 Total Billed Treatment 1 visit GT 15' TARAS VEGA PT Oct 07, 2016 13:27
[2016-10-07] MEDS: BISACODYL 10 MG SUPP (DULCOLAX) PR SCH (19:54)
[2016-10-08] MEDS: HYDROcodone/APAP 5 MG/325 MG (LORTAB) TAB PO PRN ×2 (00:05→19:26)
[2016-10-08 00:44] VITALS: BP 108/61
[2016-10-08] MEDS: LACTATED RINGERS 1,000 ML IV SCH (00:44)
[2016-10-08] MEDS: RT-ALBUTEROL/IPRATROPIUM 3 ML (DUONEB) VIAL INH SCH ×6 (02:00→22:00)
[2016-10-08] MEDS: VANCOMYCIN INJECTION 1,000 MG in NS (IVPB) 250 ML IV SCH (03:44)
[2016-10-08 04:01] VITALS: BP 101/65
[2016-10-08] MEDS ORDERED: ONDANSETRON 4 MG/2 ML (SDV) Z0FRAN ONE (04:28)
[2016-10-08] MEDS ORDERED: ONDANSETRON 4 MG/2 ML (SDV) Z0FRAN IVP PRN (04:45)
--- NOTE | 2016-10-08 05:18 | Progress Note (SOAP) ---
Subjective Time Seen by Provider: 05:14 Subjective/Events-last exam POD #2, s/p left hemiarthroplasty Transferred to chair yesterday Complains of mild left leg paresthesia Review of Systems Gastrointestinal: Nausea, Vomiting Musculoskeletal: leg pain, No: back pain Neurological: No: Change in speech, Confusion Objective Exam Vital Signs Date Time Temp Pulse Resp B/P (MAP) Pulse Ox O2 Delivery O2 Flow Rate FiO2 10/08/16 04:01 98.6 71 19 101/65 94 Room Air 10/08/16 00:44 98.4 72 19 108/61 96 Room Air 10/07/16 22:17 127/73 10/07/16 22:10 Room Air 10/07/16 20:31 97.3 72 24 95 Room Air 10/07/16 19:56 Room Air 10/07/16 18:47 96 Room Air 10/07/16 16:29 97.0 76 18 101/62 96 Room Air 10/07/16 14:35 94 Room Air 10/07/16 11:58 97.8 72 20 94/50 95 Room Air 10/07/16 11:02 95 Room Air 10/07/16 08:45 98 Room Air 10/07/16 07:40 98.9 83 20 112/62 98 Room Air 10/07/16 06:28 95 Room Air 10/07/16 06:00 99.7 92 24 146/56 98 Room Air I & O 10/08/16 07:00 Intake Total 2090 ml Output Total 1025 ml Balance 1065 ml Capillary Refill : Less Than 3 SecondsLess Than 3 Seconds General Appearance: No Apparent Distress, WD/WN Respiratory: No Respiratory Distress Gastrointestinal: non tender, soft Extremity: Normal Capillary Refill, No Calf Tenderness Neurologic/Psychiatric: Alert, Oriented x3, No Motor/Sensory Deficits, Normal Mood/Affect, internal audit director II-XII Norm as Tested Skin: Other (Dressing CDI) Results Lab Microbiology 10/05/16 MRSA Screen - Final, Complete MRSA not isolated Assessment/Plan Assessment/Plan Assess & Plan/Chief Complaint Left hip fracture, s/p hemiarthroplasty PT to ambulate today Patient accepted to IRU Follow up with Dr. Caceres in 2 weeks Continue hip precautions Clinical Quality Measures DVT/VTE Risk/Contraindication: Risk Factor Score Per Nursin RFS Level Per Nursing on Admit: 4+=Very High JULIO BECKER Oct 08, 2016 05:18
[2016-10-08 06:07] LABS: BASOPHILS % (AUTO) 0 % (0-10); EOSINOPHILS # (AUTO) 0.1 10^3/uL (0.0-0.3); EOSINOPHILS % (AUTO) 1 % (0-10); LYMPHOCYTES # (AUTO) 0.7 X 10^3 (1.0-4.0); LYMPHOCYTES % (AUTO) 5 % (12-44); MEAN CORPUSCULAR HEMOGLOBIN 32 PG (25-34); MEAN CORPUSCULAR HGB CONC 33 G/DL (32-36); MEAN CORPUSCULAR VOLUME 96 FL (80-99); MEAN PLATELET VOLUME 11.8 FL (7.4-10.4); MONOCYTES # (AUTO) 1.4 X 10^3 (0.0-1.0); MONOCYTES % (AUTO) 9 % (0-12); NEUTROPHILS % (AUTO) 85 % (42-75); PLATELET COUNT 164 10^3/uL (130-400); RED BLOOD COUNT 3.43 10^6/uL (4.35-5.85); RED CELL DISTRIBUTION WIDTH 14.4 % (10.0-14.5); WHITE BLOOD COUNT 15.3 10^3/uL (4.3-11.0)
[2016-10-08 06:28] LABS: ALBUMIN 2.9 GM/DL (3.2-4.5); BILIRUBIN,TOTAL 1.6 MG/DL (0.1-1.0); CALCIUM 8.4 MG/DL (8.5-10.1); CREATININE SERUM 1.2 MG/DL (0.60-1.30); POTASSIUM 4.3 MMOL/L (3.6-5.0); TOTAL PROTEIN 5.5 GM/DL (6.4-8.2)
[2016-10-08 08:00] VITALS: BP 153/84
[2016-10-08] MEDS ORDERED: METOCLOPRAMIDE INJ 10 MG/2 ML (REGLAN) IVP ONE (08:15)
[2016-10-08] MEDS ORDERED: METOCLOPRAMIDE INJ 10 MG/2 ML (REGLAN) IVP SCH (08:21)
[2016-10-08] MEDS: HYDROmorphone (DILAUDID) 2 MG/ML VIAL IV PRN (09:56)
--- NOTE | 2016-10-08 10:49 | Progress Note-Hospitalist ---
Progress Note HPI/CC on Admission CC: Left hip fracture HPI: This is a 76-year-old white male clinic patient of Dr. Herring the presents to the emergency room with complaints of pain all over her that workup ensued processing shortness of breath and overall poor clinical performance but ended up obtaining CT scan showing a left hip fracture that he had been stating he's had arthritis pain for 8 months and does not recall which fall that he could've sustained this left hip fracture during. He lives at home with his and it doesn't appear that he is very active. He is noncompliant with sleep apnea treatment since the mask makes and claustrophobic. At this current time he does have wheezing on exam which I will order DuoNeb nebulizer treatments and he is on the schedule for hip fracture repair by Dr. Caceres at 4 p.m. today. Progress Notes/Assess & Plan Date Seen 10/08/16 Time Seen by Provider: 10:00 Admission Dx/Process Assessment: Acute left hip fracture Sleep apnea noncompliant with CPAP HTN OA Obesity Wheezing on exam Leukocytosis Diagonsis/Assessment & Plan Chart Review: RN called due to pt experiencing nausea at 0415 then at 0800, he started vomiting, so I ordered NPO, Reglan, and checking abdominal X-ray Consulting Dr. Koroma for ileus. Rehab on hold until tomorrow process tech: Pt's BP it the 150s Pt is okay on Dilaudid RN will hold off on pills until this afternoon Patient Interview: Pt was on the toilet upon interview. Pt states that he is having a lot of results from SSE. Physical exam stable Pt states that he is experiencing pain and would like pain meds No fever, vital signs stable, pleasant, improved, up on commode Regular rate and rhythm, clear to auscultation bilaterally improved wheezes No edema Laboratory Tests 10/08/16 05:50 Assessment: Acute left hip fracture s/p repair POD # 2 Sleep apnea noncompliant with CPAP HTN OA Obesity Wheezing on exam improved Leukocytosis s/p ileus appears improved since SSE produced a lot of results but will keep NPO and Reglan empirically and await Dr Koroma results and check Xray Plan: IRU tomorrow if ileus completely resolved Surgery consult to be sure ileus is resolved Catheter DC Pain meds Scribed by Andreia La under the direct supervision of Dr. Weeks. GARIMA WEEKS DO Oct 08, 2016 10:49
--- NOTE | 2016-10-08 11:34 | Diagnostic Imaging Report ---
EXAMINATION: Supine view of the abdomen. INDICATION: Post operative abdominal pain. FINDINGS: There is moderate dilatation of the stomach with mostly gas content suggested. The small bowel and large bowel demonstrate no significant dilatation. There is slightly prominent small bowel gas content, however. 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 Degenerative changes in the lumbar spine are seen. IMPRESSION: Dilated gas-filled stomach, in the postoperative setting, is presumably related to ileus. Dictated by: Dictated on workstation # [id number]
[2016-10-08 11:54] VITALS: BP 111/66
[2016-10-08] MEDS: BISACODYL 10 MG SUPP (DULCOLAX) PR SCH ×2 (11:58→20:23)
[2016-10-08] MEDS: METOCLOPRAMIDE INJ 10 MG/2 ML (REGLAN) IVP SCH ×2 (12:02→17:30)
[2016-10-08] MEDS: ASPIRIN 325 MG (5 GR) TABLET PO SCH (12:02)
[2016-10-08] MEDS: HYDROCHLOROTHIAZIDE 12.5 MG (HCTZ) CAP PO SCH (12:02)
[2016-10-08] MEDS: SENNA W/DOCUSATE (SENOKOT S) TABLET PO SCH ×2 (12:02→20:23)
[2016-10-08] MEDS: VALSARTAN 80 MG (DIOVAN) TAB PO SCH (12:02)
[2016-10-08] MEDS: LACTULOSE SYRUP 10GM/15ML (ENULOSE) 30ML UDC PO SCH ×2 (12:03→20:23)
[2016-10-08] MEDS: meTOproloL SUCCINATE 50 MG (TOPROL XL) TAB PO SCH (12:03)
--- NOTE | 2016-10-08 12:08 | Consultation ---
History of Present Illness History of Present Illness Patient Consulted On(rashid/time) 10/08/16 12:03 Date Seen by Provider: Oct 08, 2016 Time Seen by Provider: 11:00 Reason for Visit: postop ileus History of Present Illness s/p left hip ORIF POD#3. mild abdominal distention and nausea. had large BM today and feels better. was not ambulating well at first but is now with PT. Allergies and Home Medications Allergies Coded Allergies: Penicillins (Verified Allergy, Unknown, 10/05/16) Home Medications Aspirin 81 Mg Tablet.dr, 81 MG PO DAILY, (Reported) Ibuprofen 200 Mg Tablet, 400 MG PO Q6H PRN for PAIN-MILD, (Reported) TAKES 2 (200MG) TABLETS Meloxicam 15 Mg Tablet, 15 MG PO DAILY, (Reported) Metoprolol Succinate 50 Mg Tab.er.24h, 50 MG PO DAILY, (Reported) Prednisone 10 Mg Tab, PO UD for 11 Days, (Reported) TAKE 2 (10MG) TABS 3X DAILY X 4 DAYS THEN TAKE 1 (10MG) TABLET 3X DAILY X 7 DAYS FILLED 09-23-16 Valsartan/Hydrochlorothiazide 1 Each Tablet, 1 TAB PO DAILY PRN for BLOOD PRESSURE, (Reported) LAST FILLED 07-30-16 #30 Past Jrgnxgh-Urvdxp-Ntjaho Hx Patient Social History Alcohol Use: Denies Use Recreational Drug Use: No Smoking Status: Former Smoker Type Used: Cigarettes Recent Foreign Travel: No Contact w/Someone Who Travel: No Recent Infectious Disease Expo: No Recent Hopitalizations: No Physical Abuse Screen: No Sexual Abuse: No Immunizations Up To Date Tetanus Booster (TDap): Unknown Seasonal Allergies Seasonal Allergies: No Surgeries HX Surgeries: Yes Surgeries: Adenoidectomy, Tonsillectomy Respiratory Hx Respiratory Disorders: Yes Respiratory Disorders: Sleep Apnea Cardiovascular Hx Cardiac Disorders: Yes Cardiac Disorders: Heart Attack, Hypertension Neurological Hx Neurological Disorders: No Reproductive System Hx Reproductive Disorders: No Sexually Transmitted Disease: No HIV/AIDS: No Genitourinary Hx Genitourinary Disorders: No Gastrointestinal Hx Gastrointestinal Disorders: No Musculoskeletal Hx Musculoskeletal Disorders: Yes (PAIN) Musculoskeletal Disorders: Arthritis Endocrine Hx Endocrine Disorders: No HEENT HX ENT Disorders: No Cancer Hx Cancer: No Psychosocial Hx Psychiatric Problems: No Integumentary HX Skin/Integumentary Disorder: No Blood Transfusions Hx Blood Disorders: No Adverse Reaction to a Blood Tr: No Family Medical History Significant Family History: No Pertinent Family Hx Family Medial History: Patient reports no known family medical history. Review of Systems-General Gastrointestinal: nausea All Other Systems Reviewed Negative Unless Noted: Yes (Negative excepted noted.) Physical Exam-General Problems Physical Exam Vital Signs Vital Sign - Last 12Hours 10/05/16 14:05 Temp 97.3 Pulse 60 Resp 18 B/P (MAP) 91/74 Pulse Ox 98 Capillary Refill : Less Than 3 SecondsLess Than 3 Seconds General Appearance: WD/WN HEENT: PERRL/EOMI Neck: non-tender, full range of motion Respiratory: chest non-tender, lungs clear Cardiovascular: normal peripheral pulses Gastrointestinal: normal bowel sounds, soft, distended Back: normal inspection Extremities: normal range of motion, non-tender Neurologic/Psychiatric: alert, oriented x 3 Skin: normal color Lymphatic: no adenopathy Assessment/Plan Assessment/Plan Admission Diagnosis/Plan post-op ileus. resolving with ambulation. start clears and advance as tolerated. continue ambulation with PT Clinical Quality Measures DVT/VTE Risk/Contraindication: Risk Factor Score Per Nursin RFS Level Per Nursing on Admit: 4+=Very High Copy Copies To 1: GRZEGORZ WHITTEN MD, TAKAAKI MD Oct 08, 2016 12:08
--- NOTE | 2016-10-08 12:23 | Physical Therapy Daily Note ---
PT Daily Note-Current Subjective Agrees to PT. Feeling better, after having BM earlier today. Mental Status Patient Orientation: Person, Place, Time, Situation Transfers Functional [place] Measure 0=Not Assessed/NA 4=Minimal Assistance 1=Total Assistance 5=Supervision or Setup 2=Maximal Assistance 6=Modified [place] 3=Moderate Assistance 7=Complete IndependenceIRFPAI Quality Coding Scale 6 Independent with activity with or without an assistive device 5 Patient requires set up or clean up by helper. Patient completes activity by themselves 4 Supervision or touching assist (CGA). [place] provide cues , steadying assist 3 The helper provides less than half the effort to complete the activity 2 The helper provides more than half the effort to complete the activity 1 Dependent. The helper does all the effort to complete an activity 7 Patient refused to complete or attempt activity 9 The patient did not perform the activity before the current illness or injury 88 Not attempted due to Medical conditions or safety concerns Sit to/from Stand: 4 (skilled cues for hand placement and sequencing; needs light lifting assit. ) Weight Bearing Weight Bearing Restriction: Weight Bearing/Tolerated Location Restriction: L LE Gait Training Gait (FIM): 2 Distance (FIM): 7=003-52 ft Distance: 75 ft Gait Assistive Device: FWW Slow gait slightly forward flexed at the hips. Decreased foot clearance B. Exercises Seated Therapy Exercises: Ankle pumps, Long arc quads, Hip abd/add Seated Reps: 10 (To increase strength to improve transfers and gait. ) Assessment Current Status: Good Progress Increased gait distance. PT Power Electronics Research Engineer Goals Long-Term Goals PT Power Electronics Research Engineer Goals Time Frame: Oct 21, 2016 Transfers (B,C,W/C) (FIM): 5 Gait (FIM): 3 Gait distance (FIM): 4=794-41 ft Distance: 50 Gait Level of Assist: 5 Stairs (FIM): 2 # of Steps: 3 Stairs Level Of Assist: 4 PT Plan Problem List Problem List: Activity Tolerance, Functional Strength, Safety, Balance, Gait, Transfer Treatment/Plan Treatment Plan: Continue Plan of Care Treatment Plan: Bed Mobility, Education, Functional Activity Omar, Functional Strength, Gait, Safety, Therapeutic Exercise, Transfers Treatment Duration: Oct 21, 2016 Visits Per Week: 11 Safety Risks/Education Patient Education: Transfer Techniques, Safety Issues Teaching Recipient: Patient Teaching Methods: Demonstration, Discussion Response to Teaching: Reinforcement Needed Time/GCodes Time In: 1050 Time Out: 1115 Total Billed Treatment Time: 25 Total Billed Treatment visit GT 15 EX 10 YESSI OTOOLE PT Oct 08, 2016 12:23
--- NOTE | 2016-10-08 15:38 | Physical Therapy Daily Note ---
PT Daily Note-Current Subjective Pt. denies any pain while at rest but states after ther ex begins that he has pain at 5/10 l hip. Agrees to Rx. States he feels all is going well except he just hasnt slept well Pain Numeric Pain Scale: 5-Moderate Pain Location: Left Location Body Site: Hip Pain Description: Ache Mental Status Patient Orientation: Normal For Age Transfers Functional [place] Measure 0=Not Assessed/NA 4=Minimal Assistance 1=Total Assistance 5=Supervision or Setup 2=Maximal Assistance 6=Modified [place] 3=Moderate Assistance 7=Complete IndependenceIRFPAI Quality Coding Scale 6 Independent with activity with or without an assistive device 5 Patient requires set up or clean up by helper. Patient completes activity by themselves 4 Supervision or touching assist (CGA). [place] provide cues , steadying assist 3 The helper provides less than half the effort to complete the activity 2 The helper provides more than half the effort to complete the activity 1 Dependent. The helper does all the effort to complete an activity 7 Patient refused to complete or attempt activity 9 The patient did not perform the activity before the current illness or injury 88 Not attempted due to Medical conditions or safety concerns Transfers (B, C, W/C) (FIM): 3 Scootin Rollin Supine to/from Sit: 3 (required assist of one hand to come up to sit) Sit to/from Stand: 5 Bed to/from Chair: 4 Weight Bearing Weight Bearing Restriction: Weight Bearing/Tolerated Location Restriction: L LE Gait Training Does the Patient Walk?: Yes Gait (FIM): 5 Distance (FIM): 3=150 ft (300) Gait Level of Assist: 5 Gait Persons Needed: 1 Gait Assistive Device: FWW slow, heavy wt bearing on FWW , kyphotic Exercises Supine Ex: Ankle pumps, Quad Set, Rolling, Glut sets, Heel Slides, Short Arc Quads, Scooting, Straight leg raise (assist), Hip abd/add (assist) Supine Reps: 15 Seated Therapy Exercises: Ankle pumps, Sit to stand, Long arc quads Seated Reps: 8 Assessment Current Status: Good Progress progressing well PT Usp Goals Usp Goals PT Usp Goals Time Frame: Oct 21, 2016 Transfers (B,C,W/C) (FIM): 5 Rollin Gait (FIM): 3 Gait distance (FIM): 5=132-60 ft Distance: 50 Gait Level of Assist: 5 Stairs (FIM): 2 # of Steps: 3 Stairs Level Of Assist: 4 PT Plan Treatment/Plan Treatment Plan: Continue Plan of Care Treatment Plan: Bed Mobility, Education, Functional Activity Omar, Functional Strength, Gait, Safety, Therapeutic Exercise, Transfers Treatment Duration: Oct 21, 2016 Visits Per Week: 11 Safety Risks/Education Patient Education: Gait Training, Transfer Techniques Teaching Recipient: Patient Teaching Methods: Demonstration, Discussion Response to Teaching: Verbalize Understanding, Return Demonstration, Reinforcement Needed Time/GCodes Time In: 1500 Time Out: 1530 Total Billed Treatment Time: 30 Total Billed Treatment 1,GT15m,EX15m G Codes Necessary: ELMO Drake MANAGER COSMETICS Oct 08, 2016 15:38
[2016-10-08 15:44] VITALS: BP 101/60
[2016-10-09] VITALS: BP 100/55
[2016-10-09] MEDS: METOCLOPRAMIDE INJ 10 MG/2 ML (REGLAN) IVP SCH ×2 (00:07→05:32)
[2016-10-09] MEDS: RT-ALBUTEROL/IPRATROPIUM 3 ML (DUONEB) VIAL INH SCH ×3 (02:00→10:52)
[2016-10-09 04:10] VITALS: BP 106/55
[2016-10-09 05:32] LABS: BASOPHILS % (AUTO) 0 % (0-10); EOSINOPHILS # (AUTO) 0.3 10^3/uL (0.0-0.3); EOSINOPHILS % (AUTO) 3 % (0-10); LYMPHOCYTES # (AUTO) 1.1 X 10^3 (1.0-4.0); LYMPHOCYTES % (AUTO) 9 % (12-44); MEAN CORPUSCULAR HEMOGLOBIN 32 PG (25-34); MEAN CORPUSCULAR HGB CONC 33 G/DL (32-36); MEAN CORPUSCULAR VOLUME 97 FL (80-99); MEAN PLATELET VOLUME 11.7 FL (7.4-10.4); MONOCYTES # (AUTO) 1.2 X 10^3 (0.0-1.0); MONOCYTES % (AUTO) 9 % (0-12); NEUTROPHILS # (AUTO) 10.3 X 10^3 (1.8-7.8); NEUTROPHILS % (AUTO) 80 % (42-75); PLATELET COUNT 171 10^3/uL (130-400); RED BLOOD COUNT 3.14 10^6/uL (4.35-5.85); RED CELL DISTRIBUTION WIDTH 14.1 % (10.0-14.5); WHITE BLOOD COUNT 12.9 10^3/uL (4.3-11.0)
[2016-10-09 05:54] LABS: ALBUMIN 2.8 GM/DL (3.2-4.5); BILIRUBIN,TOTAL 1.3 MG/DL (0.1-1.0); CALCIUM 8.7 MG/DL (8.5-10.1); CREATININE SERUM 1.18 MG/DL (0.60-1.30); TOTAL PROTEIN 5.5 GM/DL (6.4-8.2)
[2016-10-09 07:49] VITALS: BP 101/50
[2016-10-09] MEDS: ASPIRIN 325 MG (5 GR) TABLET PO SCH (08:57)
[2016-10-09] MEDS: LACTULOSE SYRUP 10GM/15ML (ENULOSE) 30ML UDC PO SCH (08:57)
[2016-10-09] MEDS: BISACODYL 10 MG SUPP (DULCOLAX) PR SCH ×2 (08:57→11:07)
[2016-10-09] MEDS: SENNA W/DOCUSATE (SENOKOT S) TABLET PO SCH (08:58)
[2016-10-09 09:06] VITALS: BP 87/50
[2016-10-09] MEDS: HYDROCHLOROTHIAZIDE 12.5 MG (HCTZ) CAP PO SCH (09:09)
[2016-10-09] MEDS: VALSARTAN 80 MG (DIOVAN) TAB PO SCH (09:09)
[2016-10-09] MEDS: meTOproloL SUCCINATE 50 MG (TOPROL XL) TAB PO SCH (09:09)
[2016-10-09] MEDS ORDERED: IPRA3AMP INH (10:32)
[2016-10-09] MEDS ORDERED: LACT20SO2 PO (10:32)
[2016-10-09] MEDS ORDERED: HYDR-3812 PO (10:32)
[2016-10-09 10:43] VITALS: BP 105/59
--- NOTE | 2016-10-09 10:43 | Discharge Summary-Hospitalist ---
Diagnosis/Chief Complaint Date of Admission Oct 05, 2016 at 16:35 Date of Discharge Discharge Date: Oct 09, 2016 Admission Diagnosis Assessment: Acute left hip fracture Sleep apnea noncompliant with CPAP HTN OA Obesity Wheezing on exam Leukocytosis Discharge Diagnosis Chart Review: RN called due to pt experiencing nausea at 0415 then at 0800, he started vomiting, so I ordered NPO, Reglan, and checking abdominal X-ray Consulting Dr. Koroma for ileus. 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 Pt states that he is having a lot of results from SSE. Physical exam stable Pt states that he is experiencing pain and would like pain meds No fever, vital signs stable, pleasant, improved, up on commode Regular rate and rhythm, clear to auscultation bilaterally improved wheezes No edema Laboratory Tests 10/08/16 05:50 Assessment: Acute left hip fracture s/p repair POD # 3 Sleep apnea noncompliant with CPAP HTN OA Obesity Wheezing on exam improved Leukocytosis s/p ileus resolved now Plan: IRU tomorrow if ileus completely resolved Surgery consult to be sure ileus is resolved Catheter DC Pain meds Scribed by Andreia La under the direct supervision of Dr. Weeks. Reason Hospital Visit/Course CC: Left hip fracture HPI: This is a 76-year-old white male clinic patient of Dr. Herring the presents to the emergency room with complaints of pain all over her that workup ensued processing shortness of breath and overall poor clinical performance but ended up obtaining CT scan showing a left hip fracture that he had been stating he's had arthritis pain for 8 months and does not recall which fall that he could've sustained this left hip fracture during. He lives at home with his and it doesn't appear that he is very active. He is noncompliant with sleep apnea treatment since the mask makes and claustrophobic. At this current time he does have wheezing on exam which I will order DuoNeb nebulizer treatments and he is on the schedule for hip fracture repair by Dr. Caceres at 4 p.m. today. Notes from 10/09/16 Chart Review: Ileus result BP lower, holding BP meds WBC improved 12.9 CMP normal Ready for rehab Patient Interview: Pt states he feels ready for rehab today I informed him I am holding his BP meds Physical exam stable. Lungs sound perfect, no wheezing. AFVSS, pleasant, oriented 3, Regular rate and rhythm, clear to auscultate bilaterally Normal bowel sounds, no distention Plan: Move to rehab IRU Scribed by Andreia La under the direct supervision of Dr. Weeks. Hospital course: Patient had an uneventful hospital course although limping he was admitted for a hip fracture that was subsequently repaired in an uncomplicated manner and was monitor closely given nebulized treatments and oxygen for hypoxia and wheezing noted on exam. Vitals were stable throughout the hospital course but he did have a postop ileus that Dr. Koroma was consulted on started on Reglan placed on nothing by mouth and soapsuds enema and that resolved quickly. Overall he was agreeable for rehabilitation prior to going home and was overall doing well at time of discharge. Discharge Summary Discharge Physical Examination Allergies: Coded Allergies: Penicillins (Verified Allergy, Unknown, 10/05/16) Vitals & I&Os Vital Signs Date Time Temp Pulse Resp B/P (MAP) Pulse Ox O2 Delivery O2 Flow Rate FiO2 10/09/16 10:43 103 105/59 96 Room Air 10/09/16 07:49 98.3 18 Hospital Course Labs (last 24 hrs) Laboratory Tests 10/09/16 05:22: White Blood Count 12.9H, Red Blood Count 3.14L, Hemoglobin 10.0L, Hematocrit 30L , Mean Corpuscular Volume 97, Mean Corpuscular Hemoglobin 32, Mean Corpuscular Hemoglobin Concent 33, Red Cell Distribution Width 14.1, Platelet Count 171, Mean Platelet Volume 11.7H, Neutrophils (%) (Auto) 80H, Lymphocytes (%) (Auto) 9L, Monocytes (%) (Auto) 9, Eosinophils (%) (Auto) 3, Basophils (%) (Auto) 0, Neutrophils # (Auto) 10.3H, Lymphocytes # (Auto) 1.1, Monocytes # (Auto) 1.2H, Eosinophils # (Auto) 0.3, Basophils # (Auto) 0.0, Sodium Level 135, Potassium Level 4.0, Chloride Level 102, Carbon Dioxide Level 25, Anion Gap 8, Blood Urea Nitrogen 29H, Creatinine 1.18, Estimat Glomerular Filtration Rate 60, BUN/ Creatinine Ratio 25, Glucose Level 100, Calcium Level 8.7, Total Bilirubin 1.3H , Aspartate Amino Transf (AST/SGOT) 25, Alanine Aminotransferase (ALT/SGPT) 18, Alkaline Phosphatase 59, Total Protein 5.5L, Albumin 2.8L Microbiology 10/05/16 MRSA Screen - Final, Complete MRSA not isolated Pending Labs Laboratory Tests 10/09/16 05:22: White Blood Count 12.9, Red Blood Count 3.14, Hemoglobin 10.0, Hematocrit 30, Mean Corpuscular Volume 97, Mean Corpuscular Hemoglobin 32, Mean Corpuscular Hemoglobin Concent 33, Red Cell Distribution Width 14.1, Platelet Count 171, Mean Platelet Volume 11.7, Neutrophils (%) (Auto) 80, Lymphocytes (%) (Auto) 9, Monocytes (%) (Auto) 9, Eosinophils (%) (Auto) 3, Basophils (%) (Auto) 0, Neutrophils # (Auto) 10.3, Lymphocytes # (Auto) 1.1, Monocytes # (Auto) 1.2, Eosinophils # (Auto) 0.3, Basophils # (Auto) 0.0, Sodium Level 135, Potassium Level 4.0, Chloride Level 102, Carbon Dioxide Level 25, Anion Gap 8, Blood Urea Nitrogen 29, Creatinine 1.18, Estimat Glomerular Filtration Rate 60, BUN/ Creatinine Ratio 25, Glucose Level 100, Calcium Level 8.7, Total Bilirubin 1.3, Aspartate Amino Transf (AST/SGOT) 25, Alanine Aminotransferase (ALT/SGPT) 18, Alkaline Phosphatase 59, Total Protein 5.5, Albumin 2.8 Discharge Home Medications: Active Scripts Active Lactulose 20 Gm/30 Ml Solution 10 Gm PO BID 30 Days Hydrocodon -Acetaminophen 5-325 (Hydrocodone/Acetaminophen) 1 Each Tablet 1-2 Tab PO Q4H PRN 30 Days Iprat-Albut 0.5-3(2.5) mg/3 ml (Ipratropium/Albuterol Sulfate) 3 Ml Ampul.neb 3 Ml INH RTQ4HR 30 Days Reported Aspirin EC (Aspirin) 81 Mg Tablet.dr 81 Mg PO DAILY Metoprolol Succinate 50 Mg Tab.er.24h 50 Mg PO DAILY Diovan Hct 160-12.5 mg Tab (Valsartan/Hydrochlorothiazide) 1 Each Tablet 1 Tab PO DAILY PRN LAST FILLED 07-30-16 #30 Instructions to patient/family Please see electonic discharge instructions given to patient. Clinical Quality Measures DVT/VTE Risk/Contraindication: Risk Factor Score Per Nursin RFS Level Per Nursing on Admit: 4+=Very High GARIMA WEEKS DO Oct 09, 2016 10:43
--- NOTE | 2016-10-10 11:49 | OPERATIVE REPORT ---
PROCEDURE PHYSICIAN: SCOTTIE SMALLS DATE OF PROCEDURE: 10/06/2016 SURGEON: Dr. Morris D.O. CT SCAN TECH: IVY Montanez. This is a medically necessary procedure and assistant superintendent is necessary for retraction of vital neurovascular structures. Without an assistant superintendent, the procedure would not be possible. PREOPERATIVE DIAGNOSIS: Left femoral neck fracture. POSTOPERATIVE DIAGNOSIS: Left femoral neck fracture. PROCEDURE PERFORMED: Left hip hemiarthroplasty. COMPLICATIONS: None. SPECIMEN SENT: None. DRAIN PLACED: None. ESTIMATED BLOOD LOSS: Minimal. HISTORY OF PRESENT ILLNESS: Mr. Hoyt is a very pleasant 76-year-old obese gentleman who presented to me with a displaced femoral neck fracture. He is unsure how this happened. He was unable to bear weight 4 days ago, presented to the ER at which time x-rays were taken and then a CT scan. Once the diagnosis was confirmed, I booked him for surgery. He understood the risks and benefits. OPERATION: The patient was identified by name on wrist band in the preoperative holding area. His operative site was signed, consent was signed, and antibiotics were started. He was taken operating room theater, placed under general endotracheal tube anesthesia and transferred to the operating room table in the lateral position with the left hip up. He was secured to the table. He was prepped and draped usual sterile fashion. A formal timeout was conducted. At this point, I made an incision longitudinally over the left proximal femur. I performed a standard posterior lateral approach to the hip. I took down the external rotators, including the piriformis and performed T-shaped capsulotomy. At this point, I was able to locate the fracture and the femoral head within the acetabulum. I removed the femoral head and I made an oblique cut which was perpendicular to the femoral neck. Once the cut was made, I gained access to the intramedullary canal and I used broaches to serially broach, until I found a stable size stem. At this point, I placed a trial head and relocated the hip. I had good stability and good range of motion which was stable throughout. Therefore, I chose the appropriate size stem the appropriate size bipolar component. I irrigated the wound thoroughly and I then seated the Depuy stem into the proximal femur and tapped on the femoral head and the bipolar component. I relocated the left hip. At this point, I assessed my leg lengths and my stability to internal rotation and the hip was stable. Therefore, I irrigated the wound. then I closed the capsulotomy site over the bipolar components. I then closed the subcutaneous tissue and the fascia with 0 Vicryl and I closed the skin with anneliese. I applied dressings. I took the patient in the supine position to the PACU where he awoke without incident. He tolerated the procedure well. PLAN: The plan at this time is to keep the patient in abduction pillow while in bed to prevent inadvertent dislocation. He will be out of bed on postop day one, weight-bearing as tolerated. He will keep his wound clean and dry, change dressings daily. I will see the patient back in 2 weeks. Please note instrumentation used for this procedure was Depuy bipolar components. Job ID: [id number] Dictated Date: 10/09/2016 12:22:12 Mold Blower Date: 10/10/2016 11:35:50 / cl
== END 2016-10-09 11:18 | DRG 470 ==
LOC: EDUNIT# 13:31 → ER 13:33 → 4TH 16:35
PROVIDERS: ADMIT Internal Medicine; ATTEND Internal Medicine
PROC: 0SRR01Z Replacement of Right Hip Joint, Femoral Surface with Metal Synthetic Substitute, Open Approach (ICD-10-PCS; principal; 2016-10-06 16:24)
DX: S72.012A Unspecified intracapsular fracture of left femur, initial encounter for closed fracture (principal); K56.7 Ileus, unspecified; J44.9 Chronic obstructive pulmonary disease, unspecified; G47.33 Obstructive sleep apnea (adult) (pediatric); I10 Essential (primary) hypertension; E66.9 Obesity, unspecified; Z68.41 Body mass index [BMI] 40.0-44.9, adult; M19.91 Primary osteoarthritis, unspecified site; D72.829 Elevated white blood cell count, unspecified; R06.2 Wheezing; I25.2 Old myocardial infarction; Z91.19 Patient's noncompliance with other medical treatment and regimen; Z87.891 Personal history of nicotine dependence; W19.XXXA Unspecified fall, initial encounter
CPT/HCPCS: 36415; 71010; 72170; 74000; 74176; 80053; 82805; 84484; 85025; 87081; 93005; 94640; 94664; 94760; 96374; 96376

== ENCOUNTER 2016-10-09 11:02 | Inpatient (IN) | payer MEDICARE ==
[~2016-10-09] VITALS: Ht 170.2 cm; Wt 117.3 kg
[2016-10-09 11:00] VITALS: BP 105/61
[~2016-10-09 11:02] MED LIST changes: +ASPI-983 PO; +ASPI-999 PO; +DIOVAN; +HYDR-3812 PO; +IBUP-30 PO; +IPRA3AMP INH; +LACT20SO2 PO; +MELO15TA14 PO; +MELOXICAM; +METO-370 PO; +METOPROLOL; +PRD10T PO; +PREDNISONE; +VALS1TAB5 PO
[2016-10-09] MEDS ORDERED: CATHETER FLUSH 10 ML SYR IV PRN (12:00)
--- OUTSIDE RECORDS SUMMARY | 2016-10-09 12:29 | XMS REPORT | Continuity of Care Document ---
Author Author [facility] Organization [facility] Address Unknown Phone Unavailable Allergies Active Description Code Type Severity Reaction Onset Reported/Identified Relationship to Patient Clinical Status Yes Penicillins [id number] Drug Allergy Unknown N/A 08/04/2005 Medications Problems [...] KEVIN CASTRO Ot Y92.[address] IN [facility] NON-INSTITUT ( PRIVATE 08/08/2015 KEVIN CASTRO Ot Y99.8 OTHER EXTERNAL CAUSE STATUS Procedures Results Test Result Range Arterial blood gas measurement - 10/05/16 14:35 Blood pCO2 31 mm[Hg] 35-45 Blood pO2 88 mm[Hg] 79-93 Arterial blood bicarbonate measurement (moles/volume) 22 mmol/L 23-27 Arterial blood base excess by calculation -1.4 mmol/L -2.5-2.5 Arterial blood oxygen saturation measurement 98 % 94-100 * Inhaled oxygen flow rate ROOM AIR NRG Arterial blood pH measurement with patient temperature correction 7.46 7.37-7.43 Arterial blood carbon dioxide, total measurement (moles/volume) 23.1 mmol/L 21.0-31.0 Body site RT RAD NRG Assessment of wrist artery patency prior to arterial puncture YES-POS NRG Setting of ventilation mode NO NRG Measurement of body temperature 96.6 NRG Complete blood count (CBC) with automated white blood cell (WBC) differential - 10/05/16 14:45 Blood leukocytes automated count (number/volume) 13.9 10*3/ uL 4.3-11.0 Blood erythrocytes automated count (number/volume) 4.19 10*6 /uL 4.35-5.85 Venous blood hemoglobin measurement (mass/volume) 13.7 g/dL 13.3-17.7 Blood hematocrit (volume fraction) 40 % 40-54 Automated erythrocyte mean corpuscular volume 95 [foz_us] 80-99 Automated erythrocyte mean corpuscular hemoglobin (mass per erythrocyte) 33 pg 25-34 Automated erythrocyte mean corpuscular hemoglobin concentration measurement ( mass/volume) 35 g/dL 32-36 Automated erythrocyte distribution width ratio 14.9 % 10.0-14.5 Automated blood platelet count (count/volume) 210 10*3/uL 130-400 Automated blood platelet mean volume measurement 11.7 [foz_ us] 7.4-10.4 Automated blood neutrophils/100 leukocytes 76 % 42-75 Automated blood lymphocytes/100 leukocytes 13 % 12-44 Blood monocytes/100 leukocytes 10 % 0-12 Automated blood eosinophils/100 leukocytes 1 % 0-10 Automated blood basophils/100 leukocytes 0 % 0-10 Blood neutrophils automated count (number/volume) 10.6 10*3 1.8-7.8 Blood lymphocytes automated count (number/volume) 1.7 10*3 1.0-4.0 Blood monocytes automated count (number/volume) 1.3 10*3 0.0-1.0 Automated eosinophil count 0.2 10*3/uL 0.0-0.3 Automated blood basophil count (count/volume) 0.0 10*3/uL 0.0-0.1 Comprehensive metabolic panel - 10/05/16 14:45 Serum or plasma sodium measurement (moles/volume) 141 mmol/ L 135-145 Serum or plasma potassium measurement (moles/volume) 3.9 mmol/L 3.6-5.0 Serum or plasma chloride measurement (moles/volume) 107 mmol /L 98-107 Carbon dioxide 24 mmol/L 21-32 Serum or plasma anion gap determination (moles/volume) 10 mmol/L 5-14 Serum or plasma urea nitrogen measurement (mass/volume) 41 mg/dL 7-18 Serum or plasma creatinine measurement (mass/volume) 1.50 mg /dL 0.60-1.30 Serum or plasma urea nitrogen/creatinine mass ratio 27 0-20 Serum or plasma creatinine measurement with calculation of estimated glomerular filtration rate 45 NRG Serum or plasma glucose measurement (mass/volume) 100 mg/dL 70-105 Serum or plasma calcium measurement (mass/volume) 9.2 mg/dL 8.5-10.1 Serum or plasma total bilirubin measurement (mass/volume) 1.4 mg/dL 0.1-1.0 Serum or plasma alkaline phosphatase measurement (enzymatic activity/volume) 83 U/L 40-136 Serum or plasma aspartate aminotransferase measurement (enzymatic activity/ volume) 14 U/L 5-34 Serum or plasma alanine aminotransferase measurement (enzymatic activity/volume ) 14 U/L 0-55 Serum or plasma protein measurement (mass/volume) 6.4 g/dL 6.4-8.2 Serum or plasma albumin measurement (mass/volume) 3.4 g/dL 3.2-4.5 Serum or plasma troponin i.cardiac measurement (mass/volume) - 10/05/16 14:45 Serum or plasma troponin i.cardiac measurement (mass/volume) < ng/mL <0.30 Methicillin resistant Staphylococcus aureus (MRSA) screening culture - 18:48 Methicillin resistant Staphylococcus aureus (MRSA) screening culture NEG NRG Complete blood count (CBC) with automated white blood cell (WBC) differential - 10/06/16 09:05 Blood leukocytes automated count (number/volume) 11.2 10*3/ uL 4.3-11.0 Blood erythrocytes automated count (number/volume) 4.06 10*6 /uL 4.35-5.85 Venous blood hemoglobin measurement (mass/volume) 13.0 g/dL 13.3-17.7 Blood hematocrit (volume fraction) 39 % 40-54 Automated erythrocyte mean corpuscular volume 96 [foz_us] 80-99 Automated erythrocyte mean corpuscular hemoglobin (mass per erythrocyte) 32 pg 25-34 Automated erythrocyte mean corpuscular hemoglobin concentration measurement ( mass/volume) 33 g/dL 32-36 Automated erythrocyte distribution width ratio 14.7 % 10.0-14.5 Automated blood platelet count (count/volume) 167 10*3/uL 130-400 Automated blood platelet mean volume measurement 11.5 [foz_ us] 7.4-10.4 Automated blood neutrophils/100 leukocytes 76 % 42-75 Automated blood lymphocytes/100 leukocytes 12 % 12-44 Blood monocytes/100 leukocytes 8 % 0-12 Automated blood eosinophils/100 leukocytes 3 % 0-10 Automated blood basophils/100 leukocytes 0 % 0-10 Blood neutrophils automated count (number/volume) 8.5 10*3 1.8-7.8 Blood lymphocytes automated count (number/volume) 1.4 10*3 1.0-4.0 Blood monocytes automated count (number/volume) 0.9 10*3 0.0-1.0 Automated eosinophil count 0.4 10*3/uL 0.0-0.3 Automated blood basophil count (count/volume) 0.0 10*3/uL 0.0-0.1 Comprehensive metabolic panel - 10/06/16 09:05 Serum or plasma sodium measurement (moles/volume) 138 mmol/ L 135-145 Serum or plasma potassium measurement (moles/volume) 4.1 mmol/L 3.6-5.0 Serum or plasma chloride measurement (moles/volume) 106 mmol /L 98-107 Carbon dioxide 23 mmol/L 21-32 Serum or plasma anion gap determination (moles/volume) 9 mmol/L 5-14 Serum or plasma urea nitrogen measurement (mass/volume) 31 mg/dL 7-18 Serum or plasma creatinine measurement (mass/volume) 0.96 mg /dL 0.60-1.30 Serum or plasma urea nitrogen/creatinine mass ratio 32 0-20 Serum or plasma creatinine measurement with calculation of estimated glomerular filtration rate > NRG Serum or plasma glucose measurement (mass/volume) 86 mg/dL 70-105 Serum or plasma calcium measurement (mass/volume) 8.6 mg/dL 8.5-10.1 Serum or plasma total bilirubin measurement (mass/volume) 1.8 mg/dL 0.1-1.0 Serum or plasma alkaline phosphatase measurement (enzymatic activity/volume) 80 U/L 40-136 Serum or plasma aspartate aminotransferase measurement (enzymatic activity/ volume) 15 U/L 5-34 Serum or plasma alanine aminotransferase measurement (enzymatic activity/volume ) 14 U/L 0-55 Serum or plasma protein measurement (mass/volume) 5.4 g/dL 6.4-8.2 Serum or plasma albumin measurement (mass/volume) 3.1 g/dL 3.2-4.5 Complete blood count (CBC) with automated white blood cell (WBC) differential - 10/07/16 05:05 Blood leukocytes automated count (number/volume) 14.3 10*3/ uL 4.3-11.0 Blood erythrocytes automated count (number/volume) 3.60 10*6 /uL 4.35-5.85 Venous blood hemoglobin measurement (mass/volume) 11.5 g/dL 13.3-17.7 Blood hematocrit (volume fraction) 35 % 40-54 Automated erythrocyte mean corpuscular volume 97 [foz_us] 80-99 Automated erythrocyte mean corpuscular hemoglobin (mass per erythrocyte) 32 pg 25-34 Automated erythrocyte mean corpuscular hemoglobin concentration measurement ( mass/volume) 33 g/dL 32-36 Automated erythrocyte distribution width ratio 14.4 % 10.0-14.5 Automated blood platelet count (count/volume) 167 10*3/uL 130-400 Automated blood platelet mean volume measurement 11.1 [foz_ us] 7.4-10.4 Automated blood neutrophils/100 leukocytes 90 % 42-75 Automated blood lymphocytes/100 leukocytes 3 % 12-44 Blood monocytes/100 leukocytes 7 % 0-12 Automated blood eosinophils/100 leukocytes 0 % 0-10 Automated blood basophils/100 leukocytes 0 % 0-10 Blood neutrophils automated count (number/volume) 12.8 10*3 1.8-7.8 Blood lymphocytes automated count (number/volume) 0.4 10*3 1.0-4.0 Blood monocytes automated count (number/volume) 1.0 10*3 0.0-1.0 Automated eosinophil count 0.0 10*3/uL 0.0-0.3 Automated blood basophil count (count/volume) 0.0 10*3/uL 0.0-0.1 Comprehensive metabolic panel - 10/07/16 05:05 Serum or plasma sodium measurement (moles/volume) 137 mmol/ L 135-145 Serum or plasma potassium measurement (moles/volume) 4.8 mmol/L 3.6-5.0 Serum or plasma chloride measurement (moles/volume) 104 mmol /L 98-107 Carbon dioxide 25 mmol/L 21-32 Serum or plasma anion gap determination (moles/volume) 8 mmol/L 5-14 Serum or plasma urea nitrogen measurement (mass/volume) 26 mg/dL 7-18 Serum or plasma creatinine measurement (mass/volume) 1.09 mg /dL 0.60-1.30 Serum or plasma urea nitrogen/creatinine mass ratio 24 NRG Serum or plasma creatinine measurement with calculation of estimated glomerular filtration rate > NRG Serum or plasma glucose measurement (mass/volume) 128 mg/dL 70-105 Serum or plasma calcium measurement (mass/volume) 8.4 mg/dL 8.5-10.1 Serum or plasma total bilirubin measurement (mass/volume) 1.5 mg/dL 0.1-1.0 Serum or plasma alkaline phosphatase measurement (enzymatic activity/volume) 69 U/L 40-136 Serum or plasma aspartate aminotransferase measurement (enzymatic activity/ volume) 22 U/L 5-34 Serum or plasma alanine aminotransferase measurement (enzymatic activity/volume ) 19 U/L 0-55 Serum or plasma protein measurement (mass/volume) 5.4 g/dL 6.4-8.2 Serum or plasma albumin measurement (mass/volume) 2.8 g/dL 3.2-4.5 Complete blood count (CBC) with automated white blood cell (WBC) differential - 10/08/16 05:50 Blood leukocytes automated count (number/volume) 15.3 10*3/ uL 4.3-11.0 Blood erythrocytes automated count (number/volume) 3.43 10*6 /uL 4.35-5.85 Venous blood hemoglobin measurement (mass/volume) 10.9 g/dL 13.3-17.7 Blood hematocrit (volume fraction) 33 % 40-54 Automated erythrocyte mean corpuscular volume 96 [foz_us] 80-99 Automated erythrocyte mean corpuscular hemoglobin (mass per erythrocyte) 32 pg 25-34 Automated erythrocyte mean corpuscular hemoglobin concentration measurement ( mass/volume) 33 g/dL 32-36 Automated erythrocyte distribution width ratio 14.4 % 10.0-14.5 Automated blood platelet count (count/volume) 164 10*3/uL 130-400 Automated blood platelet mean volume measurement 11.8 [foz_ us] 7.4-10.4 Automated blood neutrophils/100 leukocytes 85 % 42-75 Automated blood lymphocytes/100 leukocytes 5 % 12-44 Blood monocytes/100 leukocytes 9 % 0-12 Automated blood eosinophils/100 leukocytes 1 % 0-10 Automated blood basophils/100 leukocytes 0 % 0-10 Blood neutrophils automated count (number/volume) 13.0 10*3 1.8-7.8 Blood lymphocytes automated count (number/volume) 0.7 10*3 1.0-4.0 Blood monocytes automated count (number/volume) 1.4 10*3 0.0-1.0 Automated eosinophil count 0.1 10*3/uL 0.0-0.3 Automated blood basophil count (count/volume) 0.0 10*3/uL 0.0-0.1 Comprehensive metabolic panel - 10/08/16 05:50 Serum or plasma sodium measurement (moles/volume) 135 mmol/ L 135-145 Serum or plasma potassium measurement (moles/volume) 4.3 mmol/L 3.6-5.0 Serum or plasma chloride measurement (moles/volume) 100 mmol /L 98-107 Carbon dioxide 24 mmol/L 21-32 Serum or plasma anion gap determination (moles/volume) 11 mmol/L 5-14 Serum or plasma urea nitrogen measurement (mass/volume) 31 mg/dL 7-18 Serum or plasma creatinine measurement (mass/volume) 1.20 mg /dL 0.60-1.30 Serum or plasma urea nitrogen/creatinine mass ratio 26 NRG Serum or plasma creatinine measurement with calculation of estimated glomerular filtration rate 59 NRG Serum or plasma glucose measurement (mass/volume) 119 mg/dL 70-105 Serum or plasma calcium measurement (mass/volume) 8.4 mg/dL 8.5-10.1 Serum or plasma total bilirubin measurement (mass/volume) 1.6 mg/dL 0.1-1.0 Serum or plasma alkaline phosphatase measurement (enzymatic activity/volume) 69 U/L 40-136 Serum or plasma aspartate aminotransferase measurement (enzymatic activity/ volume) 26 U/L 5-34 Serum or plasma alanine aminotransferase measurement (enzymatic activity/volume ) 17 U/L 0-55 Serum or plasma protein measurement (mass/volume) 5.5 g/dL 6.4-8.2 Serum or plasma albumin measurement (mass/volume) 2.9 g/dL 3.2-4.5 Complete blood count (CBC) with automated white blood cell (WBC) differential - 10/09/16 05:22 Blood leukocytes automated count (number/volume) 12.9 10*3/ uL 4.3-11.0 Blood erythrocytes automated count (number/volume) 3.14 10*6 /uL 4.35-5.85 Venous blood hemoglobin measurement (mass/volume) 10.0 g/dL 13.3-17.7 Blood hematocrit (volume fraction) 30 % 40-54 Automated erythrocyte mean corpuscular volume 97 [foz_us] 80-99 Automated erythrocyte mean corpuscular hemoglobin (mass per erythrocyte) 32 pg 25-34 Automated erythrocyte mean corpuscular hemoglobin concentration measurement ( mass/volume) 33 g/dL 32-36 Automated erythrocyte distribution width ratio 14.1 % 10.0-14.5 Automated blood platelet count (count/volume) 171 10*3/uL 130-400 Automated blood platelet mean volume measurement 11.7 [foz_ us] 7.4-10.4 Automated blood neutrophils/100 leukocytes 80 % 42-75 Automated blood lymphocytes/100 leukocytes 9 % 12-44 Blood monocytes/100 leukocytes 9 % 0-12 Automated blood eosinophils/100 leukocytes 3 % 0-10 Automated blood basophils/100 leukocytes 0 % 0-10 Blood neutrophils automated count (number/volume) 10.3 10*3 1.8-7.8 Blood lymphocytes automated count (number/volume) 1.1 10*3 1.0-4.0 Blood monocytes automated count (number/volume) 1.2 10*3 0.0-1.0 Automated eosinophil count 0.3 10*3/uL 0.0-0.3 Automated blood basophil count (count/volume) 0.0 10*3/uL 0.0-0.1 Comprehensive metabolic panel - 10/09/16 05:22 Serum or plasma sodium measurement (moles/volume) 135 mmol/ L 135-145 Serum or plasma potassium measurement (moles/volume) 4.0 mmol/L 3.6-5.0 Serum or plasma chloride measurement (moles/volume) 102 mmol /L 98-107 Carbon dioxide 25 mmol/L 21-32 Serum or plasma anion gap determination (moles/volume) 8 mmol/L 5-14 Serum or plasma urea nitrogen measurement (mass/volume) 29 mg/dL 7-18 Serum or plasma creatinine measurement (mass/volume) 1.18 mg /dL 0.60-1.30 Serum or plasma urea nitrogen/creatinine mass ratio 25 NRG Serum or plasma creatinine measurement with calculation of estimated glomerular filtration rate 60 NRG Serum or plasma glucose measurement (mass/volume) 100 mg/dL 70-105 Serum or plasma calcium measurement (mass/volume) 8.7 mg/dL 8.5-10.1 Serum or plasma total bilirubin measurement (mass/volume) 1.3 mg/dL 0.1-1.0 Serum or plasma alkaline phosphatase measurement (enzymatic activity/volume) 59 U/L 40-136 Serum or plasma aspartate aminotransferase measurement (enzymatic activity/ volume) 25 U/L 5-34 Serum or plasma alanine aminotransferase measurement (enzymatic activity/volume ) 18 U/L 0-55 Serum or plasma protein measurement (mass/volume) 5.5 g/dL 6.4-8.2 Serum or plasma albumin measurement (mass/volume) 2.8 g/dL 3.2-4.5 Encounters ACCT No. Visit Date/Time Discharge Status Pt. Type Provider Facility Loc./Unit Complaint [id number] 07/14/2015 13:42:00 2015 18:27:00 DIS Emergency ELVIRA HAYNES, KEVIN Alonzo [facility] ER [id number] 07/06/2015 20:30:00 2015 06:45:00 DIS Outpatient MARGARITA DUARTE MD [facility] SLEEP [id number] 10/10/2012 15:33:00 2012 23:59:59 CLS Outpatient [id number] 10/05/2016 14:52:00 Document Registration
--- NOTE | 2016-10-09 13:05 | ST Cognitive Linguistic Eval ---
Speech Evaluation-General Medical Diagnosis Left Hip Fracture Onset Date: Oct 05, 2016 Therapy Diagnosis Therapy Diagnosis: Cognitive Linguistic Skills WFL Precautions Precautions/Isolations: Fall Prevention, Standard Precautions Referral Referring Physician: Dr. Rudy Abarca Reason for Referral: Evaluation/Treatment Cognitive Evaluation Medical History Pertinent Medical History: Arthritis, CAD, Fractures, HTN Reviewed History: Yes Speech PLF-Current Status Prior Level of Function The patient denied recent difficulties with speech, language, or cognition. Subjective The patient was recently admitted to [facility] with a left hip fracture. The patient was resting in bed upon entrance. The patient greeted the clinician appropriately and was agreeable to participation in the cognitive evaluation. Language Eval: Auditory Comprehends Simple Yes/No Ques: Functional Indent/Objects Multiple De: Functional Ident/Pics in Multiple De: Functional Follows 1-Step Commands: Functional Follows Complex Directions: Functional Follows General Conversations: Functional Language Eval: Verbal Language Completes Spontaneous Greeting: Functional Produces Auto, Serial Info: Functional Imitates Simple Words/Phrases: Functional Word Finding: Functional Requests Basic Needs: Functional States Basic Personal Info: Functional Expresses Complex Ideas: Functional Cognitive Patient Orientation The patient was oriented to year, location, and rationale for rehabilitation stay. The patient required minimal prompting for identification of month and day of week. Objective Cognitive Domain Attention: WNL Memory: WNL Problem Solving: Functional Executive Functions: WNL Objective Impression The patient demonstrated cognitive skills within functional limits and appropriate for completion of ADL's. Communication/Social Cognition Comprehension: 6 (Patient wears glasses.) Expression: 6 Social Interaction: 6 Problem Solvin Memory: 6 Speech Patient Assess Expression of Ideas/Wants: Expression (4) Understanding Vebal Content: Understands (4) Brief Interview-Mental Status: Yes Repetition of Three Words: Three (3) Temporal Orientation: Year: Correct (3) Temporal Orientation: Month: Accurate within 5 days(2) Temporal Orientation: Day: Incorrect or No Answer(0) Recall : Wear to say "Sock": Yes, no cue required (2) Recall : Color: Yes, no cue required (2) Recall : Bed: Yes, no cue required (2) Speech-Plan Treatment Plan Speech Therapy Treatment Plan: Discontinue ST Evaluation, only. Rehab Potential: Good Safety Risks/Education Teaching Recipient: Patient, Significant Other Teaching Methods: Discussion Response to Teaching: Verbalize Understanding Education Topics Provided: Results, Recommendations, Plan of Care Time Speech Therapy Time In: 12:10 Speech Therapy Time Out: 12:25 Total Billed Time: 15 Billed Treatment Time 1, KATHERINE BELL Oct 09, 2016 13:04
[2016-10-09] MEDS: HYDROcodone/APAP 5 MG/325 MG (LORTAB) TAB PO PRN ×2 (13:06→20:33)
--- NOTE | 2016-10-09 13:19 | Physical Therapy Evaluation ---
PT Evaluation-General Medical Diagnosis Admission Date Oct 09, 2016 at 11:18 Medical Diagnosis: Left Hip Fracture Onset Date: Oct 05, 2016 Therapy Diagnosis Therapy Diagnosis: decreased functional mobility Height/Weight Height (Feet): 5 Height (Inches): 7.00 Weight (Pounds): 258 Weight (Ounces): 8.0 Precautions Precautions/Isolations: Fall Prevention, Standard Precautions Weight Bear Status Weight Bearing Restriction: Weight Bearing/Tolerated Location Restriction: L LE Referral Physician: Tevin Reason for Referral: Evaluation/Treatment Medical History Pertinent Medical History: Arthritis, CAD, Fractures, HTN Current History (L) hip trochanteric Fx s/p THR Reviewed History: Yes Social History Home: Single Level Current Living Status: Spouse Entry Into Home: Stairs With Railing PT Steps Into Home: 3 Prior/Core FIM Prior Level of Function Functional [place] Measure 0=Not Assessed/NA 4=Minimal Assistance 1=Total Assistance 5=Supervision or Setup 2=Maximal Assistance 6=Modified [place] 3=Moderate Assistance 7=Complete [place] Bed Mobility: 7 Transfers (B,C,W/C) (FIM): 6 Gait: 6 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 Reports (I) with all ADLs at mobility. Reports he has "had falls all my life". Reports occasional use of "canes and crutches" but otherwise (I) PT Evaluation-Current Subjective Pt agreeable. Reports "tired" and occasional c/o nausea and dizziness with activity. Required VCS to recall THR precautions. Pain Numeric Pain Scale: 6 Location: Left Location Body Site: Hip Pain Description: Ache Pt/Family Goals Home Objective Patient Orientation: Person, Place, Time, Situation Problem Solving: Good ROM/Strength ROM Upper Extremities See OT ROM Lower Extremities Grossly WFL for functional mobility within constraints of THR precautions Strength Upper Extremities See OT Strenght Lower Extremities (R) ankle, knee and hip flexion: grossly 4/5 (L) ankle: grossly 4/5, (L) knee extension/flexion: 3/5 Integumentary/Posture Integumentary See nurses' notes Sensory Vision: Wears Glasses Hearing: Functional Hand Dominance: Right Sensation Right Lower Extremit: Intact Sensation Left Lower Extremity: Intact Transfers Functional [place] Measure 0=Not Assessed/NA 4=Minimal Assistance 1=Total Assistance 5=Supervision or Setup 2=Maximal Assistance 6=Modified [place] 3=Moderate Assistance 7=Complete IndependenceIRFPAI Quality Coding Scale 6 Independent with activity with or without an assistive device 5 Patient requires set up or clean up by helper. Patient completes activity by themselves 4 Supervision or touching assist (CGA). [place] provide cues , steadying assist 3 The helper provides less than half the effort to complete the activity 2 The helper provides more than half the effort to complete the activity 1 Dependent. The helper does all the effort to complete an activity 7 Patient refused to complete or attempt activity 9 The patient did not perform the activity before the current illness or injury 88 Not attempted due to Medical conditions or safety concerns Transfers (B, C, W/C) (FIM): 4 Scootin Roll Left to Right (QC): 4 Supine to/from Sit: 4 Sit to/from Stand: 5 Sit to Lying (QC): 3 Lying to Sitting/Side of Bed(Q: 3 Sit to Stand (QC): 4 Chair/Lui-rk-Xqxkf Xfer(QC): 4 Car Transfer (QC): 88 Gait Does the Patient Walk?: Yes Mode of Locomotion: Walk Anticipated Mode of Locomotion: Walk Gait (FIM): 4 Distance (FIM): 6=161-18 ft Walk 10 feet (QC): 4 Walk 50 ft with 2 Turns(QC): 4 Walk 150 ft (QC): 4 Walking 10ft/uneven surface-QC: 88 Distance: 150 Gait Level of Assist: 4 Gait Persons Needed: 1 Gait Assistive Device: FWW Comments/Gait Description Pt ambulated with slow, step-through gait. Steady but requiring CGA for safety due to c/o dizziness. Vitals at initiation of eval: 105/61,97% O2 on RA, HR 94- 95; After gait to room: 99/53, HR 109, 99% on RA with Pt symptomatic and c/o fatigue and dizziness. Wheelchair Training Does the Pt Use a Wheelchair?: No Stairs Stairs (FIM): 1 #of Steps: 1 Level of Assist: 4 1 Step (curb) (QC): 4 4 Steps (QC): 88 Assistive Device: Walker 12 Steps (QC): 88 If not tested on admit;explain Flight of steps not attempted this date due to low BP and symptomatic with dizziness and nausea. Balance Sitting Static: Normal Sitting Dynamic: Normal Standing Static: Good Standing Dynamic: Fair Picking up an Object (QC): 88 Treatment Eval. Gait training, transfer training. Pt returned to bed with all needs met. Assessment/Needs Pt is a 76 y.o. male s/p hip fx and THR. Pt's problem list includes: decreased LE strength, decreased functional mobility, decreased functional activity tolerance, antalgic gait, and pain. Pt would benefit from skilled PT to improve safety and (I) with functional mobility to allow safe return home. High complexity, variable response to treatment with symptomatic drop in BP. Rehab Potential: Good PT Short Term Goals Short Term Goals Time Frame: Oct 16, 2016 Transfers (B,C,W/C) (FIM): 6 PT Snf Goals Critical Care Transport Nurse Goals PT Snf Goals Time Frame: Oct 30, 2016 Transfers (B,C,W/C) (FIM): 6 Sit to Lying (QC): 6 Lying-Sitting on Side/Bed(QC): 6 Sit to Stand (QC): 6 Roll Left to Right (QC): 6 Chair/Shr-rv-Nklmx Xfer(QC): 6 Car Transfer (QC): 5 Does the Patient Walk: Yes Gait (FIM): 6 Gait distance (FIM): 3=150 ft Distance: 150' Walk 10 feet (QC): 6 Walk 10ft-Uneven Surface(QC): 6 Walk 50ft with 2 Turns (QC): 6 Walk 150 ft (QC): 6 Gait Level of Assist: 6 Gait Assistive Device: FWW Does the Pt use WC or Scooter?: No Stairs (FIM): 6 # of Steps: 6 1 Step (curb) (QC): 6 4 Steps (QC): 6 12 Steps (QC): 6 Stairs Level Of Assist: 6 Picking up an Object (QC): 3 PT Plan Problem List Problem List: Activity Tolerance, Functional Strength, Safety, Balance, Gait, Transfer, Bed Mobility, ROM Treatment/Plan Treatment Plan: Continue Plan of Care Treatment Plan: Bed Mobility, Education, Functional Activity Omar, Functional Strength, Group Therapy, Gait, Safety, Therapeutic Exercise, Transfers Treatment Duration: Oct 23, 2016 # of days/week 5-6 Visits Per Week: 10-11 Minutes/Day (M-F): 60-90 Minutes/Day (Sat/[place]): PRN Pt/Family Agrees w/Plan: Yes Safety Risks/Education Patient Education: Gait Training, Transfer Techniques, Steps Teaching Recipient: Patient Teaching Methods: Discussion Response to Teaching: Verbalize Understanding, Reinforcement Needed Discharge Recommendations Therapy D/C Recommendations: Physical Therapy Home Care Equpiment Recommendations-D/C: Front Wheeled Walker Time/GCodes Time In: 1106 Time Out: 1200 Total Billed Treatment Time: 54 Total Billed Treatment 1. EVHIGHC x 14', GT x 25', FA x 15' [id number] (EVAL) [id number] (GT x 25', FA x 15')-Co-treat with OT due to low activity tolerance, symptomatic low BP. PT addressing LE, balance and TFRs. OT addressing UE, ADLs. G Codes Necessary: SHEYLA Lindsay DPNancie Oct 09, 2016 13:19
--- NOTE | 2016-10-09 13:38 | HISTORY AND PHYSICAL ---
DATE OF ADMISSION: 10/09/2016 CHIEF COMPLAINT: Difficulty with walking. HISTORY OF PRESENT ILLNESS: The patient is a 76 yo male, who was admitted to [facility] on 10/05 due to an acute left hip fracture. The patient underwent repair with orthopedics. He is a clinic patient of Dr. Herring. He had postoperative complications of ileus. This was treated by Dr. Koroma. The patient had been independent prior to this and living with his spouse. He now requires assistance for his ADLs and mobility skills. HE IS MOD ASSIST FOR TRANSFERS mIN ASSIST FOR TOILETING mOD iNDEPENDENT FOR eATING PAST MEDICAL HISTORY: 1. Sleep apnea, noncompliant with CPAP. 2. Hypertension. 3. Osteoarthritis. 4. Obesity. PAST SURGICAL HISTORY: He has participated in [employer] as a youth and had a fractured left wrist with repair. Left ankle fracture with repair and recent left hip fracture repair. ALLERGIES: Penicillin. FAMILY HISTORY: Noncontributory. SOCIAL HISTORY: Essentially as per above. He is retired. REVIEW OF SYSTEMS: Ten-point review of systems significant for ankle, wrist and hip pain, some shortness of breath. MEDICATIONS: 1. Hydrocodone APAP 1 to 2 tablets p.o. q.4 hours as needed for moderate pain. 2. Dual DuoNeb treatments q.4 hours p.r.n. shortness of breath. 3. Lactulose 30 mg p.o. b.i.d. 4. ASA 81 mg p.o. q.d. 5. Metoprolol 60 mg p.o. q.d. 6. Diovan HCT 160/12.5, 1 tablet p.o. as needed for blood pressure. PHYSICAL EXAMINATION: Significant for a pleasant male, appearing his stated age, alert and oriented no acute distress. VITAL SIGNS: Within normal limits. He is afebrile. O2 by nasal cannula is in place. HEENT: Vision, speech, hearing, grossly intact. No oral lesion is noted. NECK: Supple without mass. HEART: Rhythm. LUNGS: Clear. ABDOMEN: Soft, nontender. Bowel sounds present. EXTREMITIES: Trace edema of both ankles. No calf tenderness. Excision site healing well. MUSCULOSKELETAL: He has deformity of the left wrist but with functional tank driver strength. He has functional active range of motion otherwise with left hip not tested due to the patient' surveillance surgery and repair. NEUROLOGIC: Sensation is grossly intact to touch. Cognition grossly intact. He has functional strength both upper extremities, right lower extremity. Left lower extremity limited from his hip due to fracture and repair. IMPRESSION: 1. Ambulatory dysfunction secondary to fall, fracture left hip, status post repair orthopedics. 2. Prior injuries to the left wrist and right ankle from various injuries involving rodeo activity as a youth. 3. Obstructive sleep apnea, noncompliant with CPAP. 4. Hypertension, controlled with medication. 5. Osteoarthritis. 6. Obesity. 7. Postoperative ileus treated by Dr. Koroma, zaina. PLAN: The patient will HAVE a comprehensive program of inpatient orthopedic rehabilitation with goal of maximizing level of functional independence prior to discharge home with spouse and home health care. The patient will have PT/OT 90 minutes per day, each discipline, 5 days a week for gait strengthening, conditioning, ADLs, any patient, family, caregiver training necessary. Any adaptive equipment and training necessary. Speech therapy to do cognitive assessment and treat as indicated. Rehabilitation nursing assist with bowel, bladder, skin, wound care, medication administration and pain management. financial services intern to assist with discharge planning, community reentry. Respiratory therapy to assist with CPAP administration, O2 administration, respiratory treatment administration, monitoring O2 sats. Follow-up with Dr. Buckner and orthopedics as per their schedule. Follow-up with Dr. Koroma General Surgery p.r.n. ESTIMATED LENGTH OF STAY: 2 weeks. Therapy with cardiac and fall precautions. PROGNOSIS: Rehab prognosis appears good for goal of discharging home with spouse, modified independent to supervision for ADLs and mobility skills. DIET: Regular. CODE STATUS: Full code. Job ID: [id number] Dictated Date: 10/09/2016 12:00:07 [place]ian Blind Mechanic Date: 10/09/2016 13:28:16/cl LORENZO
--- NOTE | 2016-10-09 14:15 | Occupational Therapy Eval ---
OT Evaluation-General/PLF Medical Diagnosis Admission Date Oct 09, 2016 at 11:18 Medical Diagnosis: Left Hip Fracture Onset Date: Oct 05, 2016 Therapy Diagnosis Therapy Diagnosis: decr self care, decr activity marifer, weakness, decr funct mobility Height/Weight Height (Feet): 5 Height (Inches): 7.00 Weight (Pounds): 258 Weight (Ounces): 8.0 Precautions Precautions/Isolations: Fall Prevention, Standard Precautions Weight Bear Status Weight Bearing Restriction: Weight Bearing/Tolerated Location Restriction: L LE Referral Physician: Tevin Referral Reason: Evaluation/Treatment Referral Comments Hip precautions Medical History Pertinent Medical History: Arthritis, CAD, COPD, Fractures, HTN, [place] Additional Medical History Sleep apnea, obesity, wheezing. Difficulty with R shoulder, per . Old L wrist fx, per pt. Current History pt admitted through ED, with hip pain of several days. Pt reported he's been in pain for 8 months but doens't know when fracture occurred. L subcapital femur fx , with total hip replacement. Recovery complicating by ileus and nausea/ vomiting. Reviewed History: Yes Social History Home: Single Level Current Living Status: Spouse Entry Into Home: Stairs With Railing Steps Into Home: 3 ADL-Prior Level of Function ADL PLOF Comments Pt reported that he has been able to manage all of his basic self care needs except he has trouble putting socks and shoes on (due to tummy). 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 He likes to watch TV. Drive Self: Yes OT Current Status Subjective Pt seen in gym, up in w/c, agreeable to OT. Pain reported 6/10 in hip but not described. Appearance Alert, cooperative Mental Status/Objective Attachments: IV Current Glasses/Contacts: Yes Hearing Aids: No Dentures/Partials: Yes (uses dentures for eating everything) Hand Dominance: Right Upper Extremity ROM grossly WFL bilat Upper Extremity Coordination grossly WFL Upper Extremity Sensation No problems reported Upper Extremity Strength Grossly 4/5 ADL-Treatment Functional [place] Measure 0=Not Assessed/NA 4=Minimal Assistance 1=Total Assistance 5=Supervision or Setup 2=Maximal Assistance 6=Modified [place] 3=Moderate Assistance 7=Complete IndependenceIRFPAI Quality Coding Scale 6 Independent with activity with or without an assistive device 5 Patient requires set up or clean up by helper. Patient completes activity by themselves 4 Supervision or touching assist (CGA). [place] provide cues , steadying assist 3 The helper provides less than half the effort to complete the activity 2 The helper provides more than half the effort to complete the activity 1 Dependent. The helper does all the effort to complete an activity 7 Patient refused to complete or attempt activity 9 The patient did not perform the activity before the current illness or injury 88 Not attempted due to Medical conditions or safety concerns Eating (FIM): 6 (Pt reported he is able to feed himself and doesn't need help opening packages. He always eats with dentures. Able to get drink from full water pitcher) Eating (QC): 6 Toileting (FIM): 4 (CGA for standing to manage clothing. BSC over toilet. Also has urinal - unable to empty it) Toileting Hygiene (QC): 3 Toilet/Commode Transfer (FIM): 4 (CGA to min assist, BSC over toilet (lower toilet would have been unsafe, due to hip precautions) ) Toilet Transfer (QC): 3 Other Treatments Co-tx with PT due to decreased activity tolerance and blood pressure issues ( see PT eval) and nausea/vomiting. OT focused on ADLs and UE, PT on LE and functional mobility. Pt provided with written instructions for hip precautions and education provided on rationale/precautions. Pt was not able to verbalize any of the precautions at end of education but did verbalize understanding. Pt ended treatment in bed, 4 rails up, all needs met. Education OT Patient Education: Modified ADL techniques, Purpose of tx/functional activities, Reviewed precautions (hip), Rehab process, Safety issues, Transfer techniques, Use of adapted equipment Teaching Recipient: Patient Teaching Methods: Demonstration, Discussion Response to Teaching: Verbalize Understanding, Return Demonstration, Reinforcement Needed OT Short Term Goals Short Term Goals Lower Body Dressing(FIM): 5 Toilet/Commode Transfer(FIM): 5 Additional Short Term Goals: 2-Verbalize Understanding, 3-ImproveStrength/Omar 1=Demonstrate adherence to instructed precautions during ADL tasks. 2=Patient will verbalize/demonstrate understanding of assistive devices/ modifications for ADL. 3=Patient will improve strength/tolerance for activity to enable patient to perform ADL's. OT Fdc Goals Fdc Goals Time Frame: Oct 30, 2016 Eating (FIM): 6 Eating (QC): 6 Groomin Oral Hygiene (QC): 6 Bathing(FIM): 6 Shower/Bathe Self (QC): 6 Upper Body Dressing(FIM): 6 Upper Body Dressing (QC): 6 Lower Body Dressing(FIM): 6 Lower Body Dressing (QC): 6 On/Off Footwear (QC): 6 Toileting(FIM): 6 Toileting Hygiene (QC): 6 Toilet/Commode Transfer(FIM): 6 Toilet/Commode Transfer (QC): 6 Shower Transfer(FIM): 6 Additional Goals: 2-Verbalize Understanding, 3-ImproveStrength/Omar 1=Demonstrate adherence to instructed precautions during ADL tasks. 2=Patient will verbalize/demonstrate understanding of assistive devices/ modifications for ADL. 3=Patient will improve strength/tolerance for activity to enable patient to perform ADL's. OT Education/Plan Problem List/Assessment Assessment: Decreased Activ Tolerance, Decreased UE Strength, Dependent Transfers, Impaired Bed Mobility, Impaired Funct Balance, Impaired Self-Care Skills Pt would benefit from skilled OT to increase his independence in basic self care to allow him to safely return to his home to live with his and to decrease caregiver burden. Discharge Recommendations Plan/Recommendations: Continue POC Barriers to Progress obesity, decr activ tole, COPD, BP issues Treatment Plan/Plan of Care Treatment,Training & Education: Yes Patient would benefit from OT for education, treatment and training to promote independence in ADL's, mobility, safety and/or upper extremity function for ADL' s. Plan of Care: ADL Retraining, Caregiver Training, Functional Mobility, Group Exercise/Act as Ind (education, activity tolerance, exercise, functional activities, socialization), UE Funct Exercise/Act, UE Neuromus Re-Ed/Coord Treatment Duration: Oct 30, 2016 # of days/week 5-6 Visits Per Week: 10-11 Minutes/Day (M-F): 75-90 Minutes/Day (Sat/[place]): PRN Agreement: Yes Rehab Potential: Good Time/GCodes Start Time: 11:20 Stop Time: 12:10 Total Time Billed (hr/min): 50 Billed Treatment Time visit, 10 minutes evaluation high intensity, 40 minutes ADL ISRA BLACKWOOD OT Oct 09, 2016 14:15
--- NOTE | 2016-10-09 14:52 | Therapy Group Daily Note ---
Therapy Daily Group Note Patient Education Topic Other List Below (Nutrition) Exercises LE Seated Exercise, UE Exercise Other/Notes Pt ambulated with min A using FWW to OT/PT group. Group consisted of introductions (name, place, expensive purchase made), socialization, UE/LE seated exercises, nutrition education and UE coordination activity. Pt able to introduce self and answer questions appropriately. Contributed to discussions and interacted with other pt's. Was able to complete UE/LE exercises, tolerated well. UE coordination activity worked on core strengthening, eye hand coordination, dynamic balance and UE AROM/strengthening. After group, pt lying in bed with call light/phone in reach. present in room. Start Time: 13:00 Stop Time: 14:15 Total Billed Treatment Time: 75 Total Billed Treatment 1-GRP YESSI STOCKTON Oct 09, 2016 14:52
--- NOTE | 2016-10-09 15:19 | PM&R Post Admission Assessment ---
Post Admission Physician Asses The preadmission screen agrees with the post admission assessment that the patient is a good candidate for inpatient rehabilitation. The patient will have a comprehensive program of inpatient rehabilitation with a goal of maximizing level of functional independence prior to discharge home with spouse. The patient will have PT/OT ninety minutes per day, each discipline, five days a week for gait ,strengthening, conditioning, balance, ADLs, any patient/family/caregiver training as necessary. Speech therapy to do cognitive assessment and treat as indicated. Rehabilitation nursing to assist with bowel, bladder, skin, wound care, medication administration, pain management. Arranging Funeral Director to assist with discharge planning, community reentry. SCD's for DVT prophylaxis. He appears to be well motivated to participate in three hours of therapy a day. He should be able to tolerate three hours of therapy a day from a medical and surgical standpoint. He should benefit from the three hours of therapy a day. He has a reasonable discharge plan, reasonable discharge rehabilitation goals and a supportive family. He has various comorbidities that need to be closely monitored with medications and treatments adjusted on a daily basis as needed. These include: MANUEL Obesity Postop ileus HTN Barriers to discharge for this patient who had been independent prior to this are for him to be modified independent to supervision for ADLs and mobility skills prior to discharge home with [family], so as to lessen the burden of the caregivers. Risks for this patient include: 1. Fall 2. Fracture 3. DVT 4. Pulmonary embolism 5. Wound infection 6. Skin breakdown 7. Contractures 8. Poorly controlled pain 9. Urinary retention 10. UTI 11. Respiratory infection 12. Aspiration 13. Poorly controlled HTN 14. Recurrent ileus Estimated Length of Stay: 14 days Prognosis: Rehab prognosis appears good for goal of discharge home with spouse and HHC modified independent to supervision for ADLs and mobility skills. DOMINIQUE LIU MD Oct 09, 2016 15:19
[2016-10-09 18:35] VITALS: BP 127/66
[2016-10-09] MEDS: RT-ALBUTEROL/IPRATROPIUM 3 ML (DUONEB) VIAL INH SCH (19:45)
[2016-10-09] MEDS: LACTULOSE SYRUP 10GM/15ML (ENULOSE) 30ML UDC PO SCH (20:33)
[2016-10-10 05:41] VITALS: BP 104/53
[2016-10-10] MEDS: ASPIRIN E.C. 81 MG (ECOTRIN) TAB PO SCH (08:09)
[2016-10-10] MEDS: HYDROCHLOROTHIAZIDE 12.5 MG (HCTZ) CAP PO SCH (08:09)
[2016-10-10] MEDS: LACTULOSE SYRUP 10GM/15ML (ENULOSE) 30ML UDC PO SCH ×2 (08:10→20:33)
[2016-10-10] MEDS: HYDROcodone/APAP 5 MG/325 MG (LORTAB) TAB PO PRN ×2 (08:10→16:52)
[2016-10-10 08:13] VITALS: BP 107/66
--- NOTE | 2016-10-10 08:26 | Occupational Ther Daily Note ---
OT Current Status-Daily Note Subjective Pt awake, lying in bed. Pt agreed to therapy. C/o pain, 10/19. Nrsg administered pain medication. Mental Status/Objective Patient Orientation: Person, Place, Time, Situation Functional [place] Measure 0=Not Assessed/NA 4=Minimal Assistance 1=Total Assistance 5=Supervision or Setup 2=Maximal Assistance 6=Modified [place] 3=Moderate Assistance 7=Complete [place] Attachments: IV ADL-Treatment Functional [place] Measure 0=Not Assessed/NA 4=Minimal Assistance 1=Total Assistance 5=Supervision or Setup 2=Maximal Assistance 6=Modified [place] 3=Moderate Assistance 7=Complete IndependenceIRFPAI Quality Coding Scale 6 Independent with activity with or without an assistive device 5 Patient requires set up or clean up by helper. Patient completes activity by themselves 4 Supervision or touching assist (CGA). [place] provide cues , steadying assist 3 The helper provides less than half the effort to complete the activity 2 The helper provides more than half the effort to complete the activity 1 Dependent. The helper does all the effort to complete an activity 7 Patient refused to complete or attempt activity 9 The patient did not perform the activity before the current illness or injury 88 Not attempted due to Medical conditions or safety concerns Grooming (FIM): 5 (Pt was handed utensils to brush teeth. Pt completed oral care by self and other grooming tasks.) Oral Hygiene (QC): 5 (Pt was handed utensils to brush teeth. Pt completed oral care by self) Bathing (FIM): 4 (Using shower seat, grabbars and hand held shower pt was able to complete bathing. Assist needed to complete lower legs due to hip precautions. Will provide pt with long handle sponge.) Bathing Location: L Arm, R Arm, L Upper Leg, R Upper Leg, Chest, Abdomen, Buttocks, Perineal Area Shower/Bathe Self (QC): 3 (Using shower seat, grabbars and hand held shower pt was able to complete bathing. Assist needed to complete lower legs due to hip precautions. Will provide pt with long handle sponge.) Upper Body (FIM): 5 (After set up, pt able to don/doff upper body clothing by self.) Upper Body Dressing (QC): 5 (After set up, pt able to don/doff upper body clothing by self.) Lower Body Dressing (FIM): 3 (Due to hip precautions pt unable to don pants over L foot. Unable to don/doff socks/shoes. Pt given AE for lower body dressing to adhere to hip precautions.) Lower Body Dressing (QC): 3 (Due to hip precautions pt unable to don pants over L foot. Unable to don/doff socks/shoes. Pt given AE for lower body dressing to adhere to hip precautions.) On/Off Footwear (QC): 2 (Unable to don/doff footwear due to hip precautions. Will need AE for task.) Transfers (B, C, W/C) (FIM): 4 (Min A using FWW. Sit to stand easier with elevated surfaces.) Shower Transfer(FIM): 4 (Using FWW, grabbars and shower seat pt was min A for transfer.) Pt requires HOB raised all the way to go from supine to sitting with min A. AE was given and instructions given to pt. Pt verbalized and demonstrated understanding of using AE for lower body dressing. After therapy, pt sitting in recliner with call light/phone in reach. Nrsg present in room. All needs met in room. Education OT Patient Education: Use of adapted equipment Teaching Recipient: Patient Teaching Methods: Demonstration, Discussion Response to Teaching: Verbalize Understanding, Return Demonstration OT Short Term Goals Short Term Goals Lower Body Dressing(FIM): 5 Toilet/Commode Transfer(FIM): 5 Additional Short Term Goals: 2-Verbalize Understanding, 3-ImproveStrength/Omar 1=Demonstrate adherence to instructed precautions during ADL tasks. 2=Patient will verbalize/demonstrate understanding of assistive devices/ modifications for ADL. 3=Patient will improve strength/tolerance for activity to enable patient to perform ADL's. OT Longterm Goals Ballet Teacher Goals Time Frame: Oct 30, 2016 Eating (FIM): 6 Eating (QC): 6 Groomin Oral Hygiene (QC): 6 Bathing(FIM): 6 Shower/Bathe Self (QC): 6 Upper Body Dressing(FIM): 6 Upper Body Dressing (QC): 6 Lower Body Dressing(FIM): 6 Lower Body Dressing (QC): 6 On/Off Footwear (QC): 6 Toileting(FIM): 6 Toileting Hygiene (QC): 6 Toilet/Commode Transfer(FIM): 6 Toilet/Commode Transfer (QC): 6 Shower Transfer(FIM): 6 Additional Goals: 2-Verbalize Understanding, 3-ImproveStrength/Omar 1=Demonstrate adherence to instructed precautions during ADL tasks. 2=Patient will verbalize/demonstrate understanding of assistive devices/ modifications for ADL. 3=Patient will improve strength/tolerance for activity to enable patient to perform ADL's. OT Education/Plan Problem List/Assessment Pt would benefit from skilled OT to increase his independence in basic self care to allow him to safely return to his home to live with his and to decrease caregiver burden. Discharge Recommendations Plan/Recommendations: Continue POC Treatment Plan/Plan of Care Patient would benefit from OT for education, treatment and training to promote independence in ADL's, mobility, safety and/or upper extremity function for ADL' s. Plan of Care: ADL Retraining, Caregiver Training, Functional Mobility, Group Exercise/Act as Ind (education, activity tolerance, exercise, functional activities, socialization), UE Funct Exercise/Act, UE Neuromus Re-Ed/Coord Treatment Duration: Oct 30, 2016 Visits Per Week: 10-11 Minutes/Day (M-F): 75-90 Minutes/Day (Sat/[place]): PRN Agreement: Yes Rehab Potential: Good Time/GCodes Start Time: 07:20 Stop Time: 08:20 Total Time Billed (hr/min): 60 Billed Treatment Time 1 visit-ADL 4 (60 min) YESSI STOCKTON Oct 10, 2016 08:25
[2016-10-10] MEDS ORDERED: VALSARTAN 80 MG (DIOVAN) TAB PO SCH (09:00)
[2016-10-10] MEDS ORDERED: meTOproloL SUCCINATE 50 MG (TOPROL XL) TAB PO SCH (09:00)
[2016-10-10] MEDS: RT-ALBUTEROL/IPRATROPIUM 3 ML (DUONEB) VIAL INH SCH ×2 (10:14→19:04)
--- NOTE | 2016-10-10 15:22 | Physical Therapy Daily Note ---
PT Daily Note-Current Subjective Pt dressed, up in chair and agreeable. Pt with improved color, reports feeling less fatigued than yesterday. Denied pain. Mental Status Patient Orientation: Person, Place, Time, Situation Transfers Functional [place] Measure 0=Not Assessed/NA 4=Minimal Assistance 1=Total Assistance 5=Supervision or Setup 2=Maximal Assistance 6=Modified [place] 3=Moderate Assistance 7=Complete IndependenceIRFPAI Quality Coding Scale 6 Independent with activity with or without an assistive device 5 Patient requires set up or clean up by helper. Patient completes activity by themselves 4 Supervision or touching assist (CGA). [place] provide cues , steadying assist 3 The helper provides less than half the effort to complete the activity 2 The helper provides more than half the effort to complete the activity 1 Dependent. The helper does all the effort to complete an activity 7 Patient refused to complete or attempt activity 9 The patient did not perform the activity before the current illness or injury 88 Not attempted due to Medical conditions or safety concerns Supine to/from Sit: 4 Sit to/from Stand: 5 Sit to Lying (QC): 3 Sit to Stand (QC): 5 Weight Bearing Weight Bearing Restriction: Weight Bearing/Tolerated Location Restriction: L LE Gait Training Does the Patient Walk?: Yes Gait (FIM): 5 Distance: 150 Walk 10 feet (QC): 5 Walk 50 ft with 2 Turns(QC): 5 Walk 150 ft (QC): 5 Gait Level of Assist: 5 Gait Persons Needed: 1 Gait Assistive Device: FWW Pt ambulates with reciprocal gait with mildly decreased gait speed. Steady and demonstrates safe use of FWW Wheelchair Training Does the Pt Use a Wheelchair?: No Exercises Supine Ex: Ankle pumps, Quad Set, Glut sets, Heel Slides, Short Arc Quads Supine Reps: 20 Treatments Ambulation with FWW, functional strengthening of LE. Returned to up in chair with all needs met. Assessment Current Status: Excellent Progress Pt tolerated very well. No c/o dizziness or nausea; much improved activity tolerance. PT Short Term Goals Short Term Goals Time Frame: Oct 16, 2016 PT Canoe Builder Goals [facility] Goals PT Canoe Builder Goals Time Frame: Oct 30, 2016 Transfers (B,C,W/C) (FIM): 6 Sit to Lying (QC): 6 Lying-Sitting on Side/Bed(QC): 6 Sit to Stand (QC): 6 Roll Left to Right (QC): 6 Chair/Mbu-xv-Vsmce Xfer(QC): 6 Car Transfer (QC): 5 Does the Patient Walk: Yes Gait (FIM): 6 Gait distance (FIM): 3=150 ft Distance: 150' Walk 10 feet (QC): 6 Walk 10ft-Uneven Surface(QC): 6 Walk 50ft with 2 Turns (QC): 6 Walk 150 ft (QC): 6 Gait Level of Assist: 6 Gait Assistive Device: FWW Does the Pt use WC or Scooter?: No Stairs (FIM): 6 # of Steps: 6 1 Step (curb) (QC): 6 4 Steps (QC): 6 12 Steps (QC): 6 Stairs Level Of Assist: 6 Picking up an Object (QC): 3 PT Plan Problem List Problem List: Activity Tolerance, Functional Strength, Safety, Balance, Gait, Transfer, Bed Mobility, ROM Treatment/Plan Treatment Plan: Continue Plan of Care Treatment Plan: Bed Mobility, Education, Functional Activity Omar, Functional Strength, Group Therapy, Gait, Safety, Therapeutic Exercise, Transfers Treatment Duration: Oct 23, 2016 Visits Per Week: 10-11 Minutes/Day (M-F): 60-90 Minutes/Day (Sat/[place]): PRN Pt/Family Agrees w/Plan: Yes Discharge Recommendations Therapy D/C Recommendations: Home w/ Family Support, Physical Therapy Home Care , Physical Therapy Outpatient Barriers to Progress none Time/GCodes Time In: 0941 Time Out: 0958 Total Billed Treatment Time: 17 Total Billed Treatment 1, (Gt x 5') Ex x 12' G Codes Necessary: No SHEYLA POLANCO DPNancie Oct 10, 2016 15:21
[2016-10-10 18:00] VITALS: BP 102/56
[2016-10-11 04:35] VITALS: BP 117/68
[2016-10-11] MEDS: RT-ALBUTEROL/IPRATROPIUM 3 ML (DUONEB) VIAL INH SCH ×2 (07:52→19:53)
[2016-10-11] MEDS: LACTULOSE SYRUP 10GM/15ML (ENULOSE) 30ML UDC PO SCH ×2 (08:43→20:04)
[2016-10-11] MEDS: HYDROcodone/APAP 5 MG/325 MG (LORTAB) TAB PO PRN ×2 (08:43→20:04)
[2016-10-11] MEDS: ASPIRIN E.C. 81 MG (ECOTRIN) TAB PO SCH (08:43)
[2016-10-11] MEDS: HYDROCHLOROTHIAZIDE 12.5 MG (HCTZ) CAP PO SCH (08:43)
[2016-10-11 17:49] VITALS: BP 145/76
[2016-10-12 05:08] VITALS: BP 129/75
[2016-10-12] MEDS: HYDROcodone/APAP 5 MG/325 MG (LORTAB) TAB PO PRN ×3 (06:33→22:00)
[2016-10-12] MEDS: RT-ALBUTEROL/IPRATROPIUM 3 ML (DUONEB) VIAL INH SCH ×2 (07:03→19:20)
[2016-10-12 08:38] VITALS: BP 136/72
[2016-10-12] MEDS: HYDROCHLOROTHIAZIDE 12.5 MG (HCTZ) CAP PO SCH (08:42)
[2016-10-12] MEDS: ASPIRIN E.C. 81 MG (ECOTRIN) TAB PO SCH (08:42)
[2016-10-12] MEDS: LACTULOSE SYRUP 10GM/15ML (ENULOSE) 30ML UDC PO SCH ×2 (08:47→20:57)
--- NOTE | 2016-10-12 11:03 | Occupational Ther Daily Note ---
OT Current Status-Daily Note Subjective Pt alert, sitting up in chair. Pt stated that he had been up since 0400. He just couldn't go back to sleep. Pt agreed to therapy. Nrsg in room. Pt c/o soreness not pain, no rated. Mental Status/Objective Patient Orientation: Person, Place, Time, Situation Functional [place] Measure 0=Not Assessed/NA 4=Minimal Assistance 1=Total Assistance 5=Supervision or Setup 2=Maximal Assistance 6=Modified [place] 3=Moderate Assistance 7=Complete [place] ADL-Treatment Functional [place] Measure 0=Not Assessed/NA 4=Minimal Assistance 1=Total Assistance 5=Supervision or Setup 2=Maximal Assistance 6=Modified [place] 3=Moderate Assistance 7=Complete IndependenceIRFPAI Quality Coding Scale 6 Independent with activity with or without an assistive device 5 Patient requires set up or clean up by helper. Patient completes activity by themselves 4 Supervision or touching assist (CGA). [place] provide cues , steadying assist 3 The helper provides less than half the effort to complete the activity 2 The helper provides more than half the effort to complete the activity 1 Dependent. The helper does all the effort to complete an activity 7 Patient refused to complete or attempt activity 9 The patient did not perform the activity before the current illness or injury 88 Not attempted due to Medical conditions or safety concerns Grooming (FIM): 6 (Standing at sink with FWW, pt is able to complete on own.) Oral Hygiene (QC): 6 (Standing at sink with FWW, pt is able to complete on own. ) Bathing (FIM): 5 (Supervision. Using shower chair, grabbars, hand held shower and long handle grabbar pt is able to complete bathing adhering to hip precautions.) Bathing Location: L Arm, R Arm, L Upper Leg, R Upper Leg, L Lower Leg ( including foot), R Lower Leg (including foot), Chest, Abdomen, Buttocks, Perineal Area Shower/Bathe Self (QC): 4 (Supervision. Using shower chair, grabbars, hand held shower and long handle grabbar pt is able to complete bathing adhering to hip precautions.) Upper Body (FIM): 5 (After set up, pt is able to complete by self.) Upper Body Dressing (QC): 5 (After set up, pt is able to complete by self.) Lower Body Dressing (FIM): 4 (After set up, pt is able to complete using AE for lower body dressing then SBA to hike pants over hips.) Lower Body Dressing (QC): 4 (After set up, pt is able to complete using AE for lower body dressing then SBA to hike pants over hips.) On/Off Footwear (QC): 5 (Using AE pt is able to complete.) Transfers (B, C, W/C) (FIM): 5 (Using FWW, pt is able to complete with SBA.) Shower Transfer(FIM): 4 (Using shower chair, grabbar and FWW pt is able to complete with CGA.) Other Treatment Pt started using arm bike then became nauseated. 8 min 30 seconds completed on arm bike at 15 min duration without breaks. Pt unable to complete 15 min at this time. Pt stated that he has tub/shower at home. He had been stepping into tub by lifting L LE backwards and using towel rack for balance. Discussed safety ideas for tub transfer. Pt verbalized understanding. After therapy, pt sitting in recliner with call light/phone in reach. Nrsg notified about pt feeling nauseous. All needs met in room. Education OT Patient Education: Transfer techniques Teaching Recipient: Patient Teaching Methods: Discussion Response to Teaching: Verbalize Understanding OT Short Term Goals Short Term Goals Lower Body Dressing(FIM): 5 Toilet/Commode Transfer(FIM): 5 Additional Short Term Goals: 2-Verbalize Understanding, 3-ImproveStrength/Omar 1=Demonstrate adherence to instructed precautions during ADL tasks. 2=Patient will verbalize/demonstrate understanding of assistive devices/ modifications for ADL. 3=Patient will improve strength/tolerance for activity to enable patient to perform ADL's. OT Usp Goals Usp Goals Time Frame: Oct 30, 2016 Eating (FIM): 6 Eating (QC): 6 Groomin Oral Hygiene (QC): 6 Bathing(FIM): 6 Shower/Bathe Self (QC): 6 Upper Body Dressing(FIM): 6 Upper Body Dressing (QC): 6 Lower Body Dressing(FIM): 6 Lower Body Dressing (QC): 6 On/Off Footwear (QC): 6 Toileting(FIM): 6 Toileting Hygiene (QC): 6 Toilet/Commode Transfer(FIM): 6 Toilet/Commode Transfer (QC): 6 Shower Transfer(FIM): 6 Additional Goals: 2-Verbalize Understanding, 3-ImproveStrength/Omar 1=Demonstrate adherence to instructed precautions during ADL tasks. 2=Patient will verbalize/demonstrate understanding of assistive devices/ modifications for ADL. 3=Patient will improve strength/tolerance for activity to enable patient to perform ADL's. OT Education/Plan Problem List/Assessment Pt would benefit from skilled OT to increase his independence in basic self care to allow him to safely return to his home to live with his and to decrease caregiver burden. Discharge Recommendations Plan/Recommendations: Continue POC Treatment Plan/Plan of Care Patient would benefit from OT for education, treatment and training to promote independence in ADL's, mobility, safety and/or upper extremity function for ADL' s. Plan of Care: ADL Retraining, Caregiver Training, Functional Mobility, Group Exercise/Act as Ind (education, activity tolerance, exercise, functional activities, socialization), UE Funct Exercise/Act, UE Neuromus Re-Ed/Coord Treatment Duration: Oct 30, 2016 Visits Per Week: 10-11 Minutes/Day (M-F): 75-90 Minutes/Day (Sat/[place]): PRN Agreement: Yes Rehab Potential: Good Time/GCodes Start Time: 08:30 Stop Time: 10:00 Total Time Billed (hr/min): 90 Billed Treatment Time 1 visit-ADL 5 (75 min) EX 1 (15 min) YESSI STOCKTON Oct 12, 2016 11:03
--- NOTE | 2016-10-12 11:56 | Physical Therapy Daily Note ---
PT Daily Note-Current Subjective Pt. agrees to rx. c/o he has nausea today and cant seem to shake it, states he has been up since 4AM and is ready to lay down after the Rx. Rates his pain at 7 /10. Pain Numeric Pain Scale: 7 Location: Left Location Body Site: Hip Pain Description: Ache Mental Status Patient Orientation: Normal For Age Transfers Functional [place] Measure 0=Not Assessed/NA 4=Minimal Assistance 1=Total Assistance 5=Supervision or Setup 2=Maximal Assistance 6=Modified [place] 3=Moderate Assistance 7=Complete IndependenceIRFPAI Quality Coding Scale 6 Independent with activity with or without an assistive device 5 Patient requires set up or clean up by helper. Patient completes activity by themselves 4 Supervision or touching assist (CGA). [place] provide cues , steadying assist 3 The helper provides less than half the effort to complete the activity 2 The helper provides more than half the effort to complete the activity 1 Dependent. The helper does all the effort to complete an activity 7 Patient refused to complete or attempt activity 9 The patient did not perform the activity before the current illness or injury 88 Not attempted due to Medical conditions or safety concerns Transfers (B, C, W/C) (FIM): 5 Scootin Rollin Supine to/from Sit: 5 Sit to/from Stand: 5 Bed to/from Chair: 5 Weight Bearing Weight Bearing Restriction: Weight Bearing/Tolerated Location Restriction: L LE Gait Training Does the Patient Walk?: Yes Gait (FIM): 5 Distance (FIM): 3=150 ft (x2) Gait Level of Assist: 5 Gait Persons Needed: 1 Gait Assistive Device: FWW slow, heavy wt bearing on FWW Stair Training Stair Training: Handrails/: 2 handrails Stairs (FIM): 2 #of Steps: 4 Stairs: Pattern: Step to Level of Assist: 4 cues for sequence Exercises Supine Ex: Ankle pumps, Quad Set, Rolling, Glut sets, Heel Slides, Short Arc Quads, Scooting, Straight leg raise (assist), Hip abd/add Seated Therapy Exercises: Ankle pumps, Sit to stand, Long arc quads Seated Reps: 10 NuStep Minutes: 5 NuStep Workload: 2 Assessment Current Status: Good Progress pain and nausea limit Rx PT Short Term Goals Short Term Goals Time Frame: Oct 16, 2016 PT Dental Therapist Goals Dental Therapist Goals PT Dental Therapist Goals Time Frame: Oct 30, 2016 Transfers (B,C,W/C) (FIM): 6 Sit to Lying (QC): 6 Lying-Sitting on Side/Bed(QC): 6 Sit to Stand (QC): 6 Roll Left to Right (QC): 6 Chair/Wns-ow-Qwnyf Xfer(QC): 6 Car Transfer (QC): 5 Does the Patient Walk: Yes Gait (FIM): 6 Gait distance (FIM): 3=150 ft Distance: 150' Walk 10 feet (QC): 6 Walk 10ft-Uneven Surface(QC): 6 Walk 50ft with 2 Turns (QC): 6 Walk 150 ft (QC): 6 Gait Level of Assist: 6 Gait Assistive Device: FWW Does the Pt use WC or Scooter?: No Stairs (FIM): 6 # of Steps: 6 1 Step (curb) (QC): 6 4 Steps (QC): 6 12 Steps (QC): 6 Stairs Level Of Assist: 6 Picking up an Object (QC): 3 PT Plan Treatment/Plan Treatment Plan: Continue Plan of Care Treatment Plan: Bed Mobility, Education, Functional Activity Omar, Functional Strength, Group Therapy, Gait, Safety, Therapeutic Exercise, Transfers Treatment Duration: Oct 23, 2016 Visits Per Week: 10-11 Minutes/Day (M-F): 60-90 Minutes/Day (Sat/[place]): PRN Safety Risks/Education Patient Education: Gait Training, Transfer Techniques, Steps, Correct Positioning, Safety Issues Teaching Recipient: Patient Teaching Methods: Demonstration, Discussion Response to Teaching: Verbalize Understanding, Return Demonstration, Reinforcement Needed Time/GCodes Time In: 1100 Time Out: 1200 Total Billed Treatment Time: 60 Total Billed Treatment 1,EX25m,FA15m,GT20m G Codes Necessary: No ELMO ROGERS HYDRO OPERATOR Oct 12, 2016 11:56
--- NOTE | 2016-10-12 15:01 | Physical Therapy Daily Note ---
PT Daily Note-Current Subjective Patient states he feels nauseous, however, agrees to PT. Pain Numeric Pain Scale: 0-No Pain Location: No Pain Reported Mental Status Patient Orientation: Normal For Age Transfers Functional [place] Measure 0=Not Assessed/NA 4=Minimal Assistance 1=Total Assistance 5=Supervision or Setup 2=Maximal Assistance 6=Modified [place] 3=Moderate Assistance 7=Complete IndependenceIRFPAI Quality Coding Scale 6 Independent with activity with or without an assistive device 5 Patient requires set up or clean up by helper. Patient completes activity by themselves 4 Supervision or touching assist (CGA). [place] provide cues , steadying assist 3 The helper provides less than half the effort to complete the activity 2 The helper provides more than half the effort to complete the activity 1 Dependent. The helper does all the effort to complete an activity 7 Patient refused to complete or attempt activity 9 The patient did not perform the activity before the current illness or injury 88 Not attempted due to Medical conditions or safety concerns Transfers (B, C, W/C) (FIM): 5 Scootin Rollin Roll Left to Right (QC): 5 Supine to/from Sit: 5 Sit to/from Stand: 5 Sit to Lying (QC): 5 Sit to Stand (QC): 5 Weight Bearing Weight Bearing Restriction: Weight Bearing/Tolerated Location Restriction: L LE Gait Training Does the Patient Walk?: Yes Gait (FIM): 5 Distance (FIM): 3=150 ft Distance: 500' Walk 10 feet (QC): 5 Walk 50 ft with 2 Turns(QC): 5 Walk 150 ft (QC): 5 Walking 10ft/uneven surface-QC: 5 Gait Level of Assist: 5 Gait Assistive Device: FWW steady, safe and functional with FWW; reciprocal pattern Exercises Seated Therapy Exercises: Ankle pumps, Long arc quads Seated Reps: 25 (3 sets) Assessment Exercise and gait to increase strength and functional endurance to return to home with spouse. Patient continues to have difficulty with bowels. Education with patient on importance of OOB activity to help with bowel issues. PT Short Term Goals Short Term Goals Time Frame: Oct 16, 2016 PT Internet Project Manager Goals Internet Project Manager Goals PT Internet Project Manager Goals Time Frame: Oct 30, 2016 Transfers (B,C,W/C) (FIM): 6 Sit to Lying (QC): 6 Lying-Sitting on Side/Bed(QC): 6 Sit to Stand (QC): 6 Rollin Roll Left to Right (QC): 6 Chair/Nrh-jb-Trrnk Xfer(QC): 6 Car Transfer (QC): 5 Does the Patient Walk: Yes Gait (FIM): 6 Gait distance (FIM): 3=150 ft Distance: 150' Walk 10 feet (QC): 6 Walk 10ft-Uneven Surface(QC): 6 Walk 50ft with 2 Turns (QC): 6 Walk 150 ft (QC): 6 Gait Level of Assist: 6 Gait Assistive Device: FWW Does the Pt use WC or Scooter?: No Stairs (FIM): 6 # of Steps: 6 1 Step (curb) (QC): 6 4 Steps (QC): 6 12 Steps (QC): 6 Stairs Level Of Assist: 6 Picking up an Object (QC): 3 PT Plan Treatment/Plan Treatment Plan: Continue Plan of Care Treatment Plan: Bed Mobility, Education, Functional Activity Omar, Functional Strength, Group Therapy, Gait, Safety, Therapeutic Exercise, Transfers Treatment Duration: Oct 23, 2016 Visits Per Week: 10-11 Minutes/Day (M-F): 60-90 Minutes/Day (Sat/[place]): PRN Safety Risks/Education Patient Education: Disease Process Teaching Recipient: Patient Teaching Methods: Discussion Response to Teaching: Return Demonstration Discharge Recommendations Therapy D/C Recommendations: Home w/ Family Support Time/GCodes Time In: 1415 Time Out: 1445 Total Billed Treatment Time: 30 Total Billed Treatment 1 visit GT 20 min EX 10 min AKIKO MITCHELL PT Oct 12, 2016 15:01
[2016-10-12 18:23] VITALS: BP 138/75
[2016-10-13] MEDS: HYDROcodone/APAP 5 MG/325 MG (LORTAB) TAB PO PRN ×2 (05:49→18:13)
[2016-10-13 06:05] VITALS: BP 161/87
--- NOTE | 2016-10-13 07:15 | Individualized Plan of Care ---
Individualized Plan of Care Rehab Nursing IPOC Order Admission Date Oct 09, 2016 at 11:18 Current Orders Orders Patient Visit (10/12/16 ) Exercise Therap, Ea 15 Min (10/12/16 ) Functional Activities, Ea 15 (10/12/16 ) Gait Training, Ea 15 Min (10/12/16 ) Patient Visit (10/12/16 ) Exercise Therap, Ea 15 Min (10/12/16 ) Gait Training, Ea 15 Min (10/12/16 ) Toilet every (bladder): (hrs): 2 hours while awake prn PT IPOC Problem List: Activity Tolerance, Functional Strength, Safety, Balance, Gait, Transfer, Bed Mobility, ROM Treatment Plan: Continue Plan of Care Bed Mobility, Education, Functional Activity Omar, Functional Strength, Group Therapy, Gait, Safety, Therapeutic Exercise, Transfers Treatment Duration: Oct 23, 2016 Visits Per Week: 10-11 Minutes/Day (M-F): 60-90 Minutes/Day (Sat/[place]): PRN OT IPOC Problems: Decreased Activ Tolerance, Decreased UE Strength, Dependent Transfers , Impaired Bed Mobility, Impaired Funct Balance, Impaired Self-Care Skills OT Problems Pt would benefit from skilled OT to increase his independence in basic self care to allow him to safely return to his home to live with his and to decrease caregiver burden. Plan of Care: ADL Retraining, Caregiver Training, Functional Mobility, Group Exercise/Act as Ind (education, activity tolerance, exercise, functional activities, socialization), UE Funct Exercise/Act, UE Neuromus Re-Ed/Coord Treatment Duration: Oct 30, 2016 Visits Per Week: 10-11 Minutes/Day (M-F): 75-90 Minutes/Day (Sat/[place]): PRN ST IPOC Speech Therapy Treatment Plan: Discontinue ST Physician IPOC Medical Issues being managed closely and that require the 24 hour availability of a physician: Posop ileus Htn MANUEL Medical Issues: Bowel/Bladder Function, DVT Prophylaxis, Falls Precautions, Fluid/Electrolyte/Nutrition Balance, Infection Protection, Pain Management, Wound Care, Other (List) (as per above) Brief Synthesis of Preadmission Screen, Post-Admission Evaluation, and Therapy Evaluations: 76 yo male s/p hip frx and repair who sustained Postop ileus as well as a decline in functional [facility] . Now referred to [facility] for ongoing therAPIES AND CARE PMH significant for HTN and MANUEL Medical Prognosis: Good Anticipated Length of Stay: 7-17 Rehab Goals Modified [facility] for adls and mobility skills Anticipated discharge destinat: Home with [facility] and family DOMINIQUE LIU MD Oct 13, 2016 07:15
[2016-10-13] MEDS: RT-ALBUTEROL/IPRATROPIUM 3 ML (DUONEB) VIAL INH SCH ×2 (07:23→19:15)
[2016-10-13] MEDS: ASPIRIN E.C. 81 MG (ECOTRIN) TAB PO SCH (09:04)
[2016-10-13] MEDS: LACTULOSE SYRUP 10GM/15ML (ENULOSE) 30ML UDC PO SCH ×2 (09:04→21:10)
[2016-10-13] MEDS: HYDROCHLOROTHIAZIDE 12.5 MG (HCTZ) CAP PO SCH (09:04)
--- NOTE | 2016-10-13 10:11 | Occupational Ther Daily Note ---
OT Current Status-Daily Note Subjective Pt alert, lying in bed. Pt agreed to therapy. Nrsg present in room. No c/o pain at this time. Mental Status/Objective Patient Orientation: Person, Place, Time, Situation Functional [place] Measure 0=Not Assessed/NA 4=Minimal Assistance 1=Total Assistance 5=Supervision or Setup 2=Maximal Assistance 6=Modified [place] 3=Moderate Assistance 7=Complete [place] ADL-Treatment Functional [place] Measure 0=Not Assessed/NA 4=Minimal Assistance 1=Total Assistance 5=Supervision or Setup 2=Maximal Assistance 6=Modified [place] 3=Moderate Assistance 7=Complete IndependenceIRFPAI Quality Coding Scale 6 Independent with activity with or without an assistive device 5 Patient requires set up or clean up by helper. Patient completes activity by themselves 4 Supervision or touching assist (CGA). [place] provide cues , steadying assist 3 The helper provides less than half the effort to complete the activity 2 The helper provides more than half the effort to complete the activity 1 Dependent. The helper does all the effort to complete an activity 7 Patient refused to complete or attempt activity 9 The patient did not perform the activity before the current illness or injury 88 Not attempted due to Medical conditions or safety concerns Grooming (FIM): 6 (Standing at sink with FWW. Pt is able to complete on own.) Oral Hygiene (QC): 6 (Using FWW to stand at sink. Pt completes on own.) Bathing (FIM): 5 (After set up, using grabbars, long handle sponge, shower chair and hand held shower pt is able to complete on own.) Shower/Bathe Self (QC): 5 (After set up, using grabbars, long handle sponge, shower chair and hand held shower pt is able to complete on own.) Upper Body (FIM): 5 (Supervision. Pt able to retrieve clothing with SBA and dons/doff by self.) Upper Body Dressing (QC): 4 (Supervision. Pt able to retrieve clothing with SBA and dons/doff by self.) Lower Body Dressing (FIM): 5 (Supervision. Pt able to retrieve clothing with SBA and dons/doff by self using AE to adhere to hip precautions.) Lower Body Dressing (QC): 4 (Supervision. Pt able to retrieve clothing with SBA and dons/doff by self using AE.) On/Off Footwear (QC): 5 (Using AE, pt is able to complete on own.) Toileting (FIM): 6 (Using elevated seat, grabbars and FWW pt is able to manipulate clothing and cleanse self.) Toileting Hygiene (QC): 6 (Using elevated seat, grabbars and FWW pt is able to manipulate clothing and cleanse self.) Transfers (B, C, W/C) (FIM): 5 (Supervision. Using FWW, pt is able to complete transfers.) Toilet/Commode Transfer (FIM): 5 (Supervision. Using FWW, elevated seat with handles and grabbars, pt is able to complete transfers.) Toilet Transfer (QC): 4 (Supervision. Using FWW, elevated seat with handles and grabbars, pt is able to complete transfers.) Shower Transfer(FIM): 5 (Supervision. Using FWW, shower seat and grabbars, pt is able to complete transfers.) After therapy, pt sitting in recliner with call light/phone in reach. All needs met in room. OT Short Term Goals Short Term Goals Lower Body Dressing(FIM): 5 Toilet/Commode Transfer(FIM): 5 Additional Short Term Goals: 2-Verbalize Understanding, 3-ImproveStrength/Omar 1=Demonstrate adherence to instructed precautions during ADL tasks. 2=Patient will verbalize/demonstrate understanding of assistive devices/ modifications for ADL. 3=Patient will improve strength/tolerance for activity to enable patient to perform ADL's. OT Reinforcing Steel Machine Operator Goals Reinforcing Steel Machine Operator Goals Time Frame: Oct 30, 2016 Eating (FIM): 6 Eating (QC): 6 Groomin Oral Hygiene (QC): 6 Bathing(FIM): 6 Shower/Bathe Self (QC): 6 Upper Body Dressing(FIM): 6 Upper Body Dressing (QC): 6 Lower Body Dressing(FIM): 6 Lower Body Dressing (QC): 6 On/Off Footwear (QC): 6 Toileting(FIM): 6 Toileting Hygiene (QC): 6 Toilet/Commode Transfer(FIM): 6 Toilet/Commode Transfer (QC): 6 Shower Transfer(FIM): 6 Additional Goals: 2-Verbalize Understanding, 3-ImproveStrength/Omar 1=Demonstrate adherence to instructed precautions during ADL tasks. 2=Patient will verbalize/demonstrate understanding of assistive devices/ modifications for ADL. 3=Patient will improve strength/tolerance for activity to enable patient to perform ADL's. OT Education/Plan Problem List/Assessment Pt would benefit from skilled OT to increase his independence in basic self care to allow him to safely return to his home to live with his and to decrease caregiver burden. Discharge Recommendations Plan/Recommendations: Continue POC Treatment Plan/Plan of Care Patient would benefit from OT for education, treatment and training to promote independence in ADL's, mobility, safety and/or upper extremity function for ADL' s. Plan of Care: ADL Retraining, Caregiver Training, Functional Mobility, Group Exercise/Act as Ind (education, activity tolerance, exercise, functional activities, socialization), UE Funct Exercise/Act, UE Neuromus Re-Ed/Coord Treatment Duration: Oct 30, 2016 Visits Per Week: 10-11 Minutes/Day (M-F): 75-90 Minutes/Day (Sat/[place]): PRN Agreement: Yes Rehab Potential: Good Time/GCodes Start Time: 09:00 Stop Time: 10:00 Total Time Billed (hr/min): 60 Billed Treatment Time 1 visit-ADL 4 (60 min) YESSI STOCKTON Oct 13, 2016 10:11
--- NOTE | 2016-10-13 11:06 | Physical Therapy Daily Note ---
PT Daily Note-Current Subjective States that he is doing okay. Transfers Functional [place] Measure 0=Not Assessed/NA 4=Minimal Assistance 1=Total Assistance 5=Supervision or Setup 2=Maximal Assistance 6=Modified [place] 3=Moderate Assistance 7=Complete IndependenceIRFPAI Quality Coding Scale 6 Independent with activity with or without an assistive device 5 Patient requires set up or clean up by helper. Patient completes activity by themselves 4 Supervision or touching assist (CGA). [place] provide cues , steadying assist 3 The helper provides less than half the effort to complete the activity 2 The helper provides more than half the effort to complete the activity 1 Dependent. The helper does all the effort to complete an activity 7 Patient refused to complete or attempt activity 9 The patient did not perform the activity before the current illness or injury 88 Not attempted due to Medical conditions or safety concerns Transfers (B, C, W/C) (FIM): 5 Scootin Supine to/from Sit: 5 Sit to/from Stand: 5 Bed to/from Chair: 5 Weight Bearing Weight Bearing Restriction: Weight Bearing/Tolerated Gait Training Gait (FIM): 5 Distance (FIM): 3=150 ft Distance: 500' x 3 Gait Level of Assist: 5 Gait Persons Needed: 1 Gait Assistive Device: FWW Exercises Supine Ex: Quad Set, Heel Slides, Straight leg raise, Hip abd/add Supine Reps: 20 Seated Therapy Exercises: Long arc quads, Hip abd/add Seated Reps: 20 NuStep Minutes: 15 NuStep Workload: 3 Assessment Current Status: Excellent Progress Patient did well with all activities. PT Short Term Goals Short Term Goals Time Frame: Oct 16, 2016 PT Small Machine Bindery Operator Goals Senior Living Goals PT Senior Living Goals Time Frame: Oct 30, 2016 Transfers (B,C,W/C) (FIM): 6 Sit to Lying (QC): 6 Lying-Sitting on Side/Bed(QC): 6 Sit to Stand (QC): 6 Rollin Roll Left to Right (QC): 6 Chair/Zjw-oe-Xbvza Xfer(QC): 6 Car Transfer (QC): 5 Does the Patient Walk: Yes Gait (FIM): 6 Gait distance (FIM): 3=150 ft Distance: 150' Walk 10 feet (QC): 6 Walk 10ft-Uneven Surface(QC): 6 Walk 50ft with 2 Turns (QC): 6 Walk 150 ft (QC): 6 Gait Level of Assist: 6 Gait Assistive Device: FWW Does the Pt use WC or Scooter?: No Stairs (FIM): 6 # of Steps: 6 1 Step (curb) (QC): 6 4 Steps (QC): 6 12 Steps (QC): 6 Stairs Level Of Assist: 6 Picking up an Object (QC): 3 PT Plan Treatment/Plan Treatment Plan: Continue Plan of Care Treatment Plan: Bed Mobility, Education, Functional Activity Omar, Functional Strength, Group Therapy, Gait, Safety, Therapeutic Exercise, Transfers Treatment Duration: Oct 23, 2016 Visits Per Week: 10-11 Minutes/Day (M-F): 60-90 Minutes/Day (Sat/[place]): PRN Time/GCodes Time In: 1000 Time Out: 1100 Total Billed Treatment Time: 60' Total Billed Treatment 1, GT x 15, EX x 45 G Codes Necessary: LUTHER Cameron PT Oct 13, 2016 11:06
--- NOTE | 2016-10-13 13:47 | Therapy Group Daily Note ---
Therapy Daily Group Note Other/Notes Each patient participated in group therapy in the common area of rehab during lunch. Each patient was either transported or ambulated to the common area of rehab and sat at tables with other patients. Each patient had to answer some orientation questions and use memory recall. Then, they participated in an activity that involved memory, manual dexterity, and problem solving. Patients also participated in upper and lower extremity seated exercises. Finally, patient's were either transported or ambulated back to their room to bed or chair with nurse call, phone, tray, all needs met. Start Time: 13:00 Stop Time: 14:10 Total Billed Treatment Time: 70 Total Billed Treatment 1 visit GRP 70' TARAS VEGA PT Oct 13, 2016 13:47
[2016-10-13 18:43] VITALS: BP 159/72
[2016-10-14] MEDS: HYDROcodone/APAP 5 MG/325 MG (LORTAB) TAB PO PRN ×3 (01:56→20:24)
[2016-10-14 05:00] VITALS: BP 145/76
[2016-10-14] MEDS: RT-ALBUTEROL/IPRATROPIUM 3 ML (DUONEB) VIAL INH SCH ×2 (06:32→19:29)
[2016-10-14] MEDS: HYDROCHLOROTHIAZIDE 12.5 MG (HCTZ) CAP PO SCH (08:17)
[2016-10-14] MEDS: ASPIRIN E.C. 81 MG (ECOTRIN) TAB PO SCH (08:17)
[2016-10-14] MEDS: LACTULOSE SYRUP 10GM/15ML (ENULOSE) 30ML UDC PO SCH ×2 (08:17→20:22)
[2016-10-14] MEDS: meTOproloL SUCCINATE 50 MG (TOPROL XL) TAB PO SCH (11:02)
[2016-10-14] MEDS: VALSARTAN 80 MG (DIOVAN) TAB PO SCH (11:02)
--- NOTE | 2016-10-14 11:09 | Physician Query Clarification ---
PQ-Further Specificity Admission/Discharge Admission Date: Oct 09, 2016 at 11:18 Discharge Date: The medical record reflects the following clinical scenario: History/Risk Factors: Obesity, Osteoarthritis Clinical Findings: Lt subcapsular fracture per acute record, difficulty walking Treatment: fx repair Question: Can you further specify the acute left hip fracture per the clinical indicators above? Please document below. 1. Acute left subcapital fracture 2. Acute left hip fracture not otherwise specified 3. Other, with explanation of the clinical findings. 4. Clinically undetermined, no explanation for the clinical findings. PHYSICIAN RESPONSE Can you specify per above: Other, explanation/clinical finding Explanation/Clinical Findings lEFT FEMORAL NECK FRX PER dr Jeronimo oPERATIVE REPORT In responding to this query, please exercise your independent professional judgment. The purpose of this communication is to more accurately reflect the complexity of your patients condition. The fact that a question is asked does not imply that any particular answer is desired or expected. Thank you for your timely response to this clarification. Requestors name: Dio THIS PHYSICIAN QUERY FORM IS A PERMANENT PART OF THE MEDICAL RECORD DIO FLORES Oct 14, 2016 11:09 DOMINIQUE LIU MD Oct 14, 2016 22:10
--- NOTE | 2016-10-14 11:21 | Progress Note-Hospitalist ---
Progress Note Progress Notes/Assess & Plan Date Seen 10/14/16 Time Seen by Provider: 10:00 Diagonsis/Assessment & Plan Chart Review: Max fever 99.5 otherwise normal meat slicer: Pt has not had BP meds Patient Interview: Pt states that he has been ambulating Pain mainly in his groin Pt confirms urinating and having a BM this morning. Physical exam stable. AFVSS, Ple[place], O x 3, improved, in chair RRR, CTAB no edema Assessment: Acute left hip fracture s/p repair Sleep apnea noncompliant with CPAP HTN OA Obesity Wheezing on exam improved s/p ileus resolved now Plan: Restart BP meds Ambulate Scribed by Andreia La under the direct supervision of Dr. Buckner. GARIMA BUCKNER DO Oct 14, 2016 11:20
--- NOTE | 2016-10-14 12:02 | Physical Therapy Daily Note ---
PT Daily Note-Current Subjective Pt sitting in recliner upon arrival. Pt reports feeling nauseated during tx but no pain reported. Pain Location: No Pain Reported Mental Status Patient Orientation: Person, Place, Time, Situation Transfers Functional [place] Measure 0=Not Assessed/NA 4=Minimal Assistance 1=Total Assistance 5=Supervision or Setup 2=Maximal Assistance 6=Modified [place] 3=Moderate Assistance 7=Complete IndependenceIRFPAI Quality Coding Scale 6 Independent with activity with or without an assistive device 5 Patient requires set up or clean up by helper. Patient completes activity by themselves 4 Supervision or touching assist (CGA). [place] provide cues , steadying assist 3 The helper provides less than half the effort to complete the activity 2 The helper provides more than half the effort to complete the activity 1 Dependent. The helper does all the effort to complete an activity 7 Patient refused to complete or attempt activity 9 The patient did not perform the activity before the current illness or injury 88 Not attempted due to Medical conditions or safety concerns Scootin Rollin Roll Left to Right (QC): 5 Supine to/from Sit: 4 Sit to/from Stand: 5 Sit to Lying (QC): 5 Sit to Stand (QC): 5 Weight Bearing Weight Bearing Restriction: Full Weight Bearing Location Restriction: LE Bilateral Gait Training Does the Patient Walk?: Yes Distance (FIM): 3=150 ft Gait Assistive Device: FWW Pt walks with normalized gait pattern, steady w/no LOB. Wheelchair Training Does the Pt Use a Wheelchair?: No Exercises Supine Ex: Ankle pumps, Rolling, Heel Slides Supine Reps: 15 Seated Therapy Exercises: Ankle pumps, Long arc quads Seated Reps: 15 NuStep Minutes: 15 NuStep Workload: 3 Treatments Pt transfers from recliner to standing using FWW at [facility] Pt ambulates using FWW at [facility] Pt uses NuStep for 15m at Workload 3 as well as completes Supine and Seated Ex to increase strength, ROM, activity tolerance and balance. PT stretched pt's hip flexors due to pt's report of being tight. Pt returns to room due to nausea and rest in recliner at end of tx with all needs met. Nurse to return to give pt nausea med. Assessment Current Status: Good Progress Pt tolerates and is able to complete tx although reports nausea during tx and needs med to help control. PT Short Term Goals Short Term Goals Time Frame: Oct 16, 2016 PT Hand Screen Printer Goals Hand Screen Printer Goals PT Hand Screen Printer Goals Time Frame: Oct 30, 2016 Transfers (B,C,W/C) (FIM): 6 Sit to Lying (QC): 6 Lying-Sitting on Side/Bed(QC): 6 Sit to Stand (QC): 6 Rollin Roll Left to Right (QC): 6 Chair/Vrr-ka-Pikrz Xfer(QC): 6 Car Transfer (QC): 5 Does the Patient Walk: Yes Gait (FIM): 6 Gait distance (FIM): 3=150 ft Distance: 150' Walk 10 feet (QC): 6 Walk 10ft-Uneven Surface(QC): 6 Walk 50ft with 2 Turns (QC): 6 Walk 150 ft (QC): 6 Gait Level of Assist: 6 Gait Assistive Device: FWW Does the Pt use WC or Scooter?: No Stairs (FIM): 6 # of Steps: 6 1 Step (curb) (QC): 6 4 Steps (QC): 6 12 Steps (QC): 6 Stairs Level Of Assist: 6 Picking up an Object (QC): 3 PT Plan Problem List Problem List: Activity Tolerance, Safety, Gait Treatment/Plan Treatment Plan: Continue Plan of Care Treatment Plan: Bed Mobility, Education, Functional Activity Omar, Functional Strength, Group Therapy, Gait, Safety, Therapeutic Exercise, Transfers Treatment Duration: Oct 23, 2016 Visits Per Week: 10-11 Minutes/Day (M-F): 60-90 Minutes/Day (Sat/[place]): PRN Safety Risks/Education Patient Education: Gait Training, Transfer Techniques, Reviewed Precautions, Correct Positioning, Safety Issues Teaching Recipient: Patient Teaching Methods: Discussion Response to Teaching: Verbalize Understanding Time/GCodes Time In: 1000 Time Out: 1100 Total Billed Treatment Time: 60 Total Billed Treatment visit, GT (15m), EX x2 (30m) & FA (15m) ELISEO MARQUEZ PTA Oct 14, 2016 12:02
--- NOTE | 2016-10-14 12:52 | Occupational Ther Daily Note ---
OT Current Status-Daily Note Subjective Pt alert, lying in bed. Pt agreed to therapy. No c/o pain. Mental Status/Objective Patient Orientation: Person, Place, Time, Situation Functional [place] Measure 0=Not Assessed/NA 4=Minimal Assistance 1=Total Assistance 5=Supervision or Setup 2=Maximal Assistance 6=Modified [place] 3=Moderate Assistance 7=Complete [place] ADL-Treatment Pt states he does not like the hospital food and does not eat much. Pt had nausea throughout therapy. BP 157/78 and 151/84, reported to nrsg. Functional [place] Measure 0=Not Assessed/NA 4=Minimal Assistance 1=Total Assistance 5=Supervision or Setup 2=Maximal Assistance 6=Modified [place] 3=Moderate Assistance 7=Complete IndependenceIRFPAI Quality Coding Scale 6 Independent with activity with or without an assistive device 5 Patient requires set up or clean up by helper. Patient completes activity by themselves 4 Supervision or touching assist (CGA). [place] provide cues , steadying assist 3 The helper provides less than half the effort to complete the activity 2 The helper provides more than half the effort to complete the activity 1 Dependent. The helper does all the effort to complete an activity 7 Patient refused to complete or attempt activity 9 The patient did not perform the activity before the current illness or injury 88 Not attempted due to Medical conditions or safety concerns Grooming (FIM): 6 (Standing at sink to complete grooming using FWW.) Bathing (FIM): 5 (Supervision. Pt able to complete using shower seat, hand held shower, long handle sponge and grabbars.) Bathing Location: L Arm, R Arm, L Upper Leg, R Upper Leg, L Lower Leg ( including foot), R Lower Leg (including foot), Chest, Abdomen, Buttocks, Perineal Area Upper Body (FIM): 5 (Supervision to retrieve clothing. Dons/doffs clothing by self.) Lower Body Dressing (FIM): 5 (Supervision to retrieve clothing. AE used for lower body clothing to adhere to hip precautions, pt dons/doffs by self.) Toileting (FIM): 6 (Using FWW, elevated seat and grabbars pt is able to complete toileting.) Toilet/Commode Transfer (FIM): 6 (Using FWW, elevated seat and grabbars pt completes transfer.) Tub Transfer(FIM): 4 (CGA using grabbars and FWW, pt is able to step into tub by lifting foot backward into tub.) Shower Transfer(FIM): 5 (Using shower bench, grabbar and FWW pt is able to complete with supervision.) Other Treatment Pt ambulated to therapy gym with SBA using FWW. Completed arm bike 15 min duration at 20 singh resistance to increase strength and activity tolerance for daily functional tasks. Pt completed without breaks. After therapy, pt sitting in recliner with call light/phone in reach. All needs met in room. OT Short Term Goals Short Term Goals Lower Body Dressing(FIM): 5 Toilet/Commode Transfer(FIM): 5 Additional Short Term Goals: 2-Verbalize Understanding, 3-ImproveStrength/Omar 1=Demonstrate adherence to instructed precautions during ADL tasks. 2=Patient will verbalize/demonstrate understanding of assistive devices/ modifications for ADL. 3=Patient will improve strength/tolerance for activity to enable patient to perform ADL's. OT Rn Intern Goals Alf Goals Time Frame: Oct 30, 2016 Eating (FIM): 6 Eating (QC): 6 Groomin (met-10/14/2016) Oral Hygiene (QC): 6 Bathing(FIM): 6 Shower/Bathe Self (QC): 6 Upper Body Dressing(FIM): 6 Upper Body Dressing (QC): 6 Lower Body Dressing(FIM): 6 Lower Body Dressing (QC): 6 On/Off Footwear (QC): 6 Toileting(FIM): 6 Toileting Hygiene (QC): 6 Toilet/Commode Transfer(FIM): 6 Toilet/Commode Transfer (QC): 6 Shower Transfer(FIM): 6 Additional Goals: 2-Verbalize Understanding, 3-ImproveStrength/Omar 1=Demonstrate adherence to instructed precautions during ADL tasks. 2=Patient will verbalize/demonstrate understanding of assistive devices/ modifications for ADL. 3=Patient will improve strength/tolerance for activity to enable patient to perform ADL's. OT Education/Plan Problem List/Assessment Pt would benefit from skilled OT to increase his independence in basic self care to allow him to safely return to his home to live with his and to decrease caregiver burden. Discharge Recommendations Plan/Recommendations: Continue POC Treatment Plan/Plan of Care Patient would benefit from OT for education, treatment and training to promote independence in ADL's, mobility, safety and/or upper extremity function for ADL' s. Plan of Care: ADL Retraining, Caregiver Training, Functional Mobility, Group Exercise/Act as Ind (education, activity tolerance, exercise, functional activities, socialization), UE Funct Exercise/Act, UE Neuromus Re-Ed/Coord Treatment Duration: Oct 30, 2016 Visits Per Week: 10-11 Minutes/Day (M-F): 75-90 Minutes/Day (Sat/[place]): PRN Agreement: Yes Rehab Potential: Good Time/GCodes Start Time: 08:30 Stop Time: 10:00 Total Time Billed (hr/min): 90 Billed Treatment Time 1 visit-ADL 4 (60 min) FA 1 (15 min) EX 1 (15 min) YESSI STOCKTON Oct 14, 2016 12:52
--- NOTE | 2016-10-14 14:53 | Physical Therapy Daily Note ---
PT Daily Note-Current Subjective Pt sitting in recliner upon arrival. Pt agrees to PT but still has slight nausea reported. Pain Location: No Pain Reported Mental Status Patient Orientation: Person, Place, Time, Situation Transfers Functional [place] Measure 0=Not Assessed/NA 4=Minimal Assistance 1=Total Assistance 5=Supervision or Setup 2=Maximal Assistance 6=Modified [place] 3=Moderate Assistance 7=Complete IndependenceIRFPAI Quality Coding Scale 6 Independent with activity with or without an assistive device 5 Patient requires set up or clean up by helper. Patient completes activity by themselves 4 Supervision or touching assist (CGA). [place] provide cues , steadying assist 3 The helper provides less than half the effort to complete the activity 2 The helper provides more than half the effort to complete the activity 1 Dependent. The helper does all the effort to complete an activity 7 Patient refused to complete or attempt activity 9 The patient did not perform the activity before the current illness or injury 88 Not attempted due to Medical conditions or safety concerns Scootin Sit to/from Stand: 5 Sit to Stand (QC): 5 Weight Bearing Weight Bearing Restriction: Full Weight Bearing Location Restriction: LE Bilateral Gait Training Does the Patient Walk?: Yes Distance (FIM): 3=150 ft Distance: 150' Walk 10 feet (QC): 5 Walk 50 ft with 2 Turns(QC): 5 Walk 150 ft (QC): 5 Gait Level of Assist: 5 Gait Persons Needed: 1 Gait Assistive Device: FWW Pt walks with normalized gait pattern. Wheelchair Training Does the Pt Use a Wheelchair?: No Exercises Seated Therapy Exercises: Ankle pumps, Long arc quads, Hip flexion Seated Reps: 15 Treatments Pt transfers from recliner to standing using FWW at [facility]. Pt ambulates to Therapy Gym using FWW at [facility]. Pt completes Seated Ex before needing to return to room to use restroom. Pt returns to recliner to rest at end of tx with all needs met. Assessment Current Status: Good Progress Pt is improving with strength, activity tolerance and balance. PT Short Term Goals Short Term Goals Time Frame: Oct 16, 2016 PT Computer Meteorologist Goals Computer Meteorologist Goals PT Snf Goals Time Frame: Oct 30, 2016 Transfers (B,C,W/C) (FIM): 6 Sit to Lying (QC): 6 Lying-Sitting on Side/Bed(QC): 6 Sit to Stand (QC): 6 Rollin Roll Left to Right (QC): 6 Chair/Bod-an-Uqmka Xfer(QC): 6 Car Transfer (QC): 5 Does the Patient Walk: Yes Gait (FIM): 6 Gait distance (FIM): 3=150 ft Distance: 150' Walk 10 feet (QC): 6 Walk 10ft-Uneven Surface(QC): 6 Walk 50ft with 2 Turns (QC): 6 Walk 150 ft (QC): 6 Gait Level of Assist: 6 Gait Assistive Device: FWW Does the Pt use WC or Scooter?: No Stairs (FIM): 6 # of Steps: 6 1 Step (curb) (QC): 6 4 Steps (QC): 6 12 Steps (QC): 6 Stairs Level Of Assist: 6 Picking up an Object (QC): 3 PT Plan Problem List Problem List: Activity Tolerance, Safety, Balance, Gait Treatment/Plan Treatment Plan: Continue Plan of Care Treatment Plan: Bed Mobility, Education, Functional Activity Omar, Functional Strength, Group Therapy, Gait, Safety, Therapeutic Exercise, Transfers Treatment Duration: Oct 23, 2016 Visits Per Week: 10-11 Minutes/Day (M-F): 60-90 Minutes/Day (Sat/[place]): PRN Safety Risks/Education Patient Education: Gait Training, Transfer Techniques, Correct Positioning, Safety Issues Teaching Recipient: Patient Teaching Methods: Discussion Response to Teaching: Verbalize Understanding Time/GCodes Time In: 1300 Time Out: 1330 Total Billed Treatment Time: 30 Total Billed Treatment visit, GT (15m) & FA (15m) ELISEO MARQUEZ PTA Oct 14, 2016 14:53
[2016-10-14 18:54] VITALS: BP 96/61
--- NOTE | 2016-10-14 19:57 | PM & R (SOAP) Progress Note ---
Subjective Time Seen by Provider: 12:50 Subjective/Events-last exam Patient was seen in his room earlier today Progressing well with therapies Patient SBA for transfers Objective Exam Last Set of Vital Signs Vital Signs Date Time Temp Pulse Resp B/P (MAP) Pulse Ox O2 Delivery O2 Flow Rate FiO2 10/14/16 19:29 96 Room Air 10/14/16 05:00 99.5 72 22 145/76 Capillary Refill : Less Than 3 Seconds I&O Intake and Output 10/14/16 00:00 Intake Total 1260 ml Output Total 2275 ml Balance -1015 ml Intake Oral 1260 ml Output Urine Total 2275 ml # Voids 3 General: Alert, Oriented X3, Cooperative, No Acute Distress HEENT: Atraumatic, PERRLA, EOMI, Mucous Memb Moist/[place] Neck: Supple, No JVD Lungs: Clear to Auscultation Heart: Regular Rate Abdomen: Normal Bowel Sounds, Soft, No Tenderness Extremities: No Edema Neuro: Other (limited strength Left hip due to frx and repair) Assessment/Plan Assessment S/P repair frx left hip MANUEL noncompliant with CPAP HTN controlled with meds Postop ileus improve with DR Holguin RX OA Obesity Plan Continue PT/OT Team Conference held earlier today-See report for full functional update and POC Dischare set tentatively for 10/19/16 DOMINIQUE LIU MD Oct 14, 2016 19:57
[2016-10-15 05:00] VITALS: BP 109/55
[2016-10-15] MEDS: RT-ALBUTEROL/IPRATROPIUM 3 ML (DUONEB) VIAL INH SCH ×2 (07:49→19:00)
--- NOTE | 2016-10-15 08:33 | PM & R (SOAP) Progress Note ---
Subjective Time Seen by Provider: 07:40 Subjective/Events-last exam Patient was seen in his room Progressing well with therapies Pain control adequate Sleeping well. Patient min assist for transfers Objective Exam Last Set of Vital Signs Vital Signs Date Time Temp Pulse Resp B/P (MAP) Pulse Ox O2 Delivery O2 Flow Rate FiO2 10/15/16 07:49 94 Room Air 10/15/16 05:00 97.5 61 20 109/55 Capillary Refill : Less Than 3 Seconds I&O Intake and Output 10/15/16 00:00 Intake Total 800 ml Output Total 1225 ml Balance -425 ml Intake Oral 800 ml Output Urine Total 1225 ml # Voids 1 # Bowel Movements 1 General: Alert, Oriented X3, Cooperative, No Acute Distress HEENT: Atraumatic, PERRLA, EOMI, Mucous Memb Moist/[place] Neck: Supple, No JVD Lungs: Clear to Auscultation Heart: Regular Rate Abdomen: Normal Bowel Sounds, Soft, No Tenderness Extremities: No Edema Neuro: Other (limited strength Left hip due to frx and repair) Assessment/Plan Assessment S/P repair frx left hip MANUEL noncompliant with CPAP HTN controlled with meds Postop ileus improve with DR Holguin RX OA Obesity Plan Continue PT/OT Team Conference held yesterday-See report for full functional update and POC Discharge set tentatively for 10/19/16 DOMINIQUE LIU MD Oct 15, 2016 08:33
[2016-10-15] MEDS: ASPIRIN E.C. 81 MG (ECOTRIN) TAB PO SCH (08:44)
[2016-10-15] MEDS: VALSARTAN 80 MG (DIOVAN) TAB PO SCH (08:44)
[2016-10-15] MEDS: HYDROCHLOROTHIAZIDE 12.5 MG (HCTZ) CAP PO SCH (08:45)
[2016-10-15] MEDS: LACTULOSE SYRUP 10GM/15ML (ENULOSE) 30ML UDC PO SCH ×2 (08:45→21:01)
[2016-10-15] MEDS: HYDROcodone/APAP 5 MG/325 MG (LORTAB) TAB PO PRN ×3 (08:45→20:36)
[2016-10-15] MEDS: meTOproloL SUCCINATE 50 MG (TOPROL XL) TAB PO SCH (08:45)
--- NOTE | 2016-10-15 09:34 | Occupational Ther Daily Note ---
OT Current Status-Daily Note Subjective Pt alert, sitting up in recliner. Pt c/o pain, rated 9/10 in L calf muscle. Nrsg brought pain medications. Pt agreed to therapy. Mental Status/Objective Patient Orientation: Person, Place, Time, Situation Functional [place] Measure 0=Not Assessed/NA 4=Minimal Assistance 1=Total Assistance 5=Supervision or Setup 2=Maximal Assistance 6=Modified [place] 3=Moderate Assistance 7=Complete [place] ADL-Treatment Functional [place] Measure 0=Not Assessed/NA 4=Minimal Assistance 1=Total Assistance 5=Supervision or Setup 2=Maximal Assistance 6=Modified [place] 3=Moderate Assistance 7=Complete IndependenceIRFPAI Quality Coding Scale 6 Independent with activity with or without an assistive device 5 Patient requires set up or clean up by helper. Patient completes activity by themselves 4 Supervision or touching assist (CGA). [place] provide cues , steadying assist 3 The helper provides less than half the effort to complete the activity 2 The helper provides more than half the effort to complete the activity 1 Dependent. The helper does all the effort to complete an activity 7 Patient refused to complete or attempt activity 9 The patient did not perform the activity before the current illness or injury 88 Not attempted due to Medical conditions or safety concerns Bathing (FIM): 5 (Set up. Pt able to complete bathing using shower seat, grabbar, hand held shower and long handle sponge.) Bathing Location: L Arm, R Arm, L Upper Leg, R Upper Leg, L Lower Leg ( including foot), R Lower Leg (including foot), Chest, Abdomen, Buttocks, Perineal Area Upper Body (FIM): 5 (After set up, pt able to complete on own.) Lower Body Dressing (FIM): 5 (After set up, pt able to complete on own using AE for lower body dressing.) Toileting (FIM): 6 (Using elevated seat, grabbars and FWW pt is able to complete.) Transfers (B, C, W/C) (FIM): 5 (Supervision. Pt is able to complete using FWW.) Toilet/Commode Transfer (FIM): 6 (Using elevated seat, grabbars and FWW pt is able to complete.) Shower Transfer(FIM): 5 (Supervision. Pt is able to complete using FWW, shower seat and grabbars.) Other Treatment Pt c/o pain in B shldrs. Moist hot pack to shldrs then self stretching to decrease pain and increase AROM for daily functional tasks. Pt then worked on tub/shower transfers using FWW and grabbars with CGA. Pt ambulating with SBA using FWW back to room and PT took over care. All needs met. OT Short Term Goals Short Term Goals Lower Body Dressing(FIM): 5 Toilet/Commode Transfer(FIM): 5 Additional Short Term Goals: 2-Verbalize Understanding, 3-ImproveStrength/Omar 1=Demonstrate adherence to instructed precautions during ADL tasks. 2=Patient will verbalize/demonstrate understanding of assistive devices/ modifications for ADL. 3=Patient will improve strength/tolerance for activity to enable patient to perform ADL's. OT Usp Goals Usp Goals Time Frame: Oct 30, 2016 Eating (FIM): 6 Eating (QC): 6 Groomin (met-10/14/2016) Oral Hygiene (QC): 6 Bathing(FIM): 6 Shower/Bathe Self (QC): 6 Upper Body Dressing(FIM): 6 Upper Body Dressing (QC): 6 Lower Body Dressing(FIM): 6 Lower Body Dressing (QC): 6 On/Off Footwear (QC): 6 Toileting(FIM): 6 Toileting Hygiene (QC): 6 Toilet/Commode Transfer(FIM): 6 Toilet/Commode Transfer (QC): 6 Shower Transfer(FIM): 6 Additional Goals: 2-Verbalize Understanding, 3-ImproveStrength/Omar 1=Demonstrate adherence to instructed precautions during ADL tasks. 2=Patient will verbalize/demonstrate understanding of assistive devices/ modifications for ADL. 3=Patient will improve strength/tolerance for activity to enable patient to perform ADL's. OT Education/Plan Problem List/Assessment Pt would benefit from skilled OT to increase his independence in basic self care to allow him to safely return to his home to live with his and to decrease caregiver burden. Discharge Recommendations Plan/Recommendations: Continue POC Treatment Plan/Plan of Care Patient would benefit from OT for education, treatment and training to promote independence in ADL's, mobility, safety and/or upper extremity function for ADL' s. Plan of Care: ADL Retraining, Caregiver Training, Functional Mobility, Group Exercise/Act as Ind (education, activity tolerance, exercise, functional activities, socialization), UE Funct Exercise/Act, UE Neuromus Re-Ed/Coord Treatment Duration: Oct 30, 2016 Visits Per Week: 10-11 Minutes/Day (M-F): 75-90 Minutes/Day (Sat/[place]): PRN Agreement: Yes Rehab Potential: Good Time/GCodes Start Time: 08:30 Stop Time: 10:00 Total Time Billed (hr/min): 90 Billed Treatment Time 1 visit-ADL 5 (70 min) FA 1 (20 min) YESSI STOCKTON Oct 15, 2016 09:34
--- NOTE | 2016-10-15 11:00 | Physical Therapy Daily Note ---
PT Daily Note-Current Subjective Patient just complete with OT and agrees to PT. Patient rates left hip pain 3/ 10. Pain Numeric Pain Scale: 3 Location: Left Location Body Site: Hip Pain Description: Ache Mental Status Patient Orientation: Normal For Age Transfers Functional [place] Measure 0=Not Assessed/NA 4=Minimal Assistance 1=Total Assistance 5=Supervision or Setup 2=Maximal Assistance 6=Modified [place] 3=Moderate Assistance 7=Complete IndependenceIRFPAI Quality Coding Scale 6 Independent with activity with or without an assistive device 5 Patient requires set up or clean up by helper. Patient completes activity by themselves 4 Supervision or touching assist (CGA). [place] provide cues , steadying assist 3 The helper provides less than half the effort to complete the activity 2 The helper provides more than half the effort to complete the activity 1 Dependent. The helper does all the effort to complete an activity 7 Patient refused to complete or attempt activity 9 The patient did not perform the activity before the current illness or injury 88 Not attempted due to Medical conditions or safety concerns Transfers (B, C, W/C) (FIM): 5 Scootin Rollin Roll Left to Right (QC): 5 Supine to/from Sit: 5 Sit to/from Stand: 5 Sit to Lying (QC): 5 Sit to Stand (QC): 5 Chair/Udj-bh-[place] Xfer(QC): 5 Bed to/from Chair: 5 Car Transfer (QC): 5 Weight Bearing Weight Bearing Restriction: Weight Bearing/Tolerated Location Restriction: L LE Gait Training Does the Patient Walk?: Yes Gait (FIM): 6 Distance (FIM): 3=150 ft Distance: 250' x 4 Walk 10 feet (QC): 5 Walk 50 ft with 2 Turns(QC): 5 Walk 150 ft (QC): 5 Gait Level of Assist: 6 Gait Assistive Device: FWW safe, reciprocal pattern with use of FWW Stair Training Stair Training: Handrails/: 1 handrail Stairs (FIM): 5 #of Steps: 12 1 Step (curb) (QC): 5 4 Steps (QC): 5 12 Steps (QC): 5 Stairs: Pattern: Step to Level of Assist: 5 Balance Picking up an Object (QC): 5 Exercises Supine Ex: Ankle pumps, Quad Set, Heel Slides, Hip abd/add Supine Reps: 20 Seated Therapy Exercises: Ankle pumps, Long arc quads Seated Reps: 20 Standing: Heel/toe raises, Mini squats, Side steps Standing Reps: 20 all exercises x 2 sets to improve mobility to return to home safely NuStep Minutes: 15 NuStep Workload: 3 Assessment All exercises and ambulation performed by patient with good knowledge and demonstration. Patient is highly encouraged with progress and will dismiss to home next week with home health intervention. PT Short Term Goals Short Term Goals Time Frame: Oct 16, 2016 PT Insurance Advisor Goals Insurance Advisor Goals PT Retirement Goals Time Frame: Oct 30, 2016 Transfers (B,C,W/C) (FIM): 6 Sit to Lying (QC): 6 Lying-Sitting on Side/Bed(QC): 6 Sit to Stand (QC): 6 Rollin Roll Left to Right (QC): 6 Chair/Ufo-vj-Dwasj Xfer(QC): 6 Car Transfer (QC): 5 Does the Patient Walk: Yes Gait (FIM): 6 Gait distance (FIM): 3=150 ft Distance: 150' Walk 10 feet (QC): 6 Walk 10ft-Uneven Surface(QC): 6 Walk 50ft with 2 Turns (QC): 6 Walk 150 ft (QC): 6 Gait Level of Assist: 6 Gait Assistive Device: FWW Does the Pt use WC or Scooter?: No Stairs (FIM): 6 # of Steps: 6 1 Step (curb) (QC): 6 4 Steps (QC): 6 12 Steps (QC): 6 Stairs Level Of Assist: 6 Picking up an Object (QC): 3 PT Plan Treatment/Plan Treatment Plan: Continue Plan of Care Treatment Plan: Bed Mobility, Education, Functional Activity Omar, Functional Strength, Group Therapy, Gait, Safety, Therapeutic Exercise, Transfers Treatment Duration: Oct 23, 2016 Visits Per Week: 10-11 Minutes/Day (M-F): 60-90 Minutes/Day (Sat/[place]): PRN Safety Risks/Education Patient Education: Steps, Safety Issues Teaching Recipient: Patient Teaching Methods: Discussion Response to Teaching: Verbalize Understanding, Return Demonstration Time/GCodes Time In: 1000 Time Out: 1100 Total Billed Treatment Time: 60 Total Billed Treatment 1 visit EX x 3 40 min FA 20 min AKIKO MITCHELL PT Oct 15, 2016 11:00
[2016-10-15 13:00] VITALS: BP 116/70
--- NOTE | 2016-10-15 14:16 | Physical Therapy Daily Note ---
PT Daily Note-Current Subjective Patient is very agreeable to participate with PT. No c/o at this time. Pain Numeric Pain Scale: 3 Location: Left Location Body Site: Hip Pain Description: Ache Mental Status Patient Orientation: Normal For Age Transfers Functional [place] Measure 0=Not Assessed/NA 4=Minimal Assistance 1=Total Assistance 5=Supervision or Setup 2=Maximal Assistance 6=Modified [place] 3=Moderate Assistance 7=Complete IndependenceIRFPAI Quality Coding Scale 6 Independent with activity with or without an assistive device 5 Patient requires set up or clean up by helper. Patient completes activity by themselves 4 Supervision or touching assist (CGA). [place] provide cues , steadying assist 3 The helper provides less than half the effort to complete the activity 2 The helper provides more than half the effort to complete the activity 1 Dependent. The helper does all the effort to complete an activity 7 Patient refused to complete or attempt activity 9 The patient did not perform the activity before the current illness or injury 88 Not attempted due to Medical conditions or safety concerns Transfers (B, C, W/C) (FIM): 6 Scootin Rollin Roll Left to Right (QC): 6 Supine to/from Sit: 6 Sit to/from Stand: 6 Sit to Lying (QC): 6 Sit to Stand (QC): 6 Weight Bearing Weight Bearing Restriction: Weight Bearing/Tolerated Location Restriction: L LE Gait Training Does the Patient Walk?: Yes Gait (FIM): 6 Distance (FIM): 3=150 ft Distance: 500' x 2 Walk 10 feet (QC): 5 Walk 50 ft with 2 Turns(QC): 5 Walk 150 ft (QC): 5 Gait Level of Assist: 6 Gait Assistive Device: FWW safe, steady pattern Exercises Supine Ex: Ankle pumps, Quad Set, Short Arc Quads Supine Reps: 20 (2# wt) Seated Therapy Exercises: Ankle pumps, Long arc quads Seated Reps: 25 (2# wt bilaterally) Assessment all exercise and gait utilized to facilitate independent function with mobility to ensure safe return to home. Patient is progressing and will dismiss to home next week. PT Short Term Goals Short Term Goals Time Frame: Oct 16, 2016 PT Real Estate Salesperson Goals Real Estate Salesperson Goals PT Half-Way Goals Time Frame: Oct 30, 2016 Transfers (B,C,W/C) (FIM): 6 Sit to Lying (QC): 6 Lying-Sitting on Side/Bed(QC): 6 Sit to Stand (QC): 6 Rollin Roll Left to Right (QC): 6 Chair/Opo-bj-Bvtgz Xfer(QC): 6 Car Transfer (QC): 5 Does the Patient Walk: Yes Gait (FIM): 6 Gait distance (FIM): 3=150 ft Distance: 150' Walk 10 feet (QC): 6 Walk 10ft-Uneven Surface(QC): 6 Walk 50ft with 2 Turns (QC): 6 Walk 150 ft (QC): 6 Gait Level of Assist: 6 Gait Assistive Device: FWW Does the Pt use WC or Scooter?: No Stairs (FIM): 6 # of Steps: 6 1 Step (curb) (QC): 6 4 Steps (QC): 6 12 Steps (QC): 6 Stairs Level Of Assist: 6 Picking up an Object (QC): 3 PT Plan Treatment/Plan Treatment Plan: Continue Plan of Care Treatment Plan: Bed Mobility, Education, Functional Activity Omar, Functional Strength, Group Therapy, Gait, Safety, Therapeutic Exercise, Transfers Treatment Duration: Oct 23, 2016 Frequency: At least 5-7 days/Wk (IRF) Estimated Hrs Per Day: 1.5 hours per day Patient and/or Family Agrees t: Yes Time/GCodes Time In: 1300 Time Out: 1330 Total Billed Treatment Time: 30 Total Billed Treatment 1 visit EX 20 min FA 10 min AKIKO MITCHELL PT Oct 15, 2016 14:16
[2016-10-15 18:36] VITALS: BP 90/58
[2016-10-16 05:36] VITALS: BP 121/71
[2016-10-16] MEDS: HYDROcodone/APAP 5 MG/325 MG (LORTAB) TAB PO PRN ×4 (05:38→20:50)
[2016-10-16] MEDS: RT-ALBUTEROL/IPRATROPIUM 3 ML (DUONEB) VIAL INH SCH ×2 (07:18→20:10)
[2016-10-16 08:02] VITALS: BP 112/65
[2016-10-16] MEDS: VALSARTAN 80 MG (DIOVAN) TAB PO SCH (08:06)
[2016-10-16] MEDS: LACTULOSE SYRUP 10GM/15ML (ENULOSE) 30ML UDC PO SCH ×2 (08:07→20:53)
[2016-10-16] MEDS: ASPIRIN E.C. 81 MG (ECOTRIN) TAB PO SCH (08:07)
--- NOTE | 2016-10-16 08:50 | PM & R (SOAP) Progress Note ---
Subjective Time Seen by Provider: 07:40 Subjective/Events-last exam Patient was seen in his room this AM Progressing well with therapies Patient Modified Independent for transfers Objective Exam Last Set of Vital Signs Vital Signs Date Time Temp Pulse Resp B/P (MAP) Pulse Ox O2 Delivery O2 Flow Rate FiO2 10/16/16 08:02 82 20 112/65 97 Room Air 10/16/16 05:36 96.8 Capillary Refill : Less Than 3 Seconds I&O Intake and Output 10/16/16 00:00 Intake Total 1000 ml Output Total 1075 ml Balance -75 ml Intake Oral 1000 ml Output Urine Total 1075 ml # Voids 1 # Bowel Movements 1 General: Alert, Oriented X3, Cooperative, No Acute Distress HEENT: Atraumatic, PERRLA, EOMI, Mucous Memb Moist/[place] Neck: Supple, No JVD Lungs: Clear to Auscultation Heart: Regular Rate Abdomen: Normal Bowel Sounds, Soft, No Tenderness Extremities: No Edema Neuro: Other (limited strength Left hip due to frx and repair) Assessment/Plan Assessment S/P repair frx left hip MANUEL noncompliant with CPAP HTN controlled with meds Postop ileus improve with DR Holguin RX OA Obesity Plan Continue PT/OT Team Conference held 10-14-16See report for full functional update and POC Discharge set tentatively for 10/19/16 Recheck Labs DOMINIQUE LIU MD Oct 16, 2016 08:50
--- NOTE | 2016-10-16 08:59 | Occupational Ther Daily Note ---
OT Current Status-Daily Note Subjective Pt alert, sitting in recliner. Pt agreed to therapy. No c/o pain. Pt stated that he had pain pills earlier this morning. Mental Status/Objective Patient Orientation: Person, Place, Time, Situation Functional [place] Measure 0=Not Assessed/NA 4=Minimal Assistance 1=Total Assistance 5=Supervision or Setup 2=Maximal Assistance 6=Modified [place] 3=Moderate Assistance 7=Complete [place] ADL-Treatment Functional [place] Measure 0=Not Assessed/NA 4=Minimal Assistance 1=Total Assistance 5=Supervision or Setup 2=Maximal Assistance 6=Modified [place] 3=Moderate Assistance 7=Complete IndependenceIRFPAI Quality Coding Scale 6 Independent with activity with or without an assistive device 5 Patient requires set up or clean up by helper. Patient completes activity by themselves 4 Supervision or touching assist (CGA). [place] provide cues , steadying assist 3 The helper provides less than half the effort to complete the activity 2 The helper provides more than half the effort to complete the activity 1 Dependent. The helper does all the effort to complete an activity 7 Patient refused to complete or attempt activity 9 The patient did not perform the activity before the current illness or injury 88 Not attempted due to Medical conditions or safety concerns Eating (FIM): 6 (Completes set up and uses utensils to cut and feed self.) Grooming (FIM): 6 (Standing at sink with FWW to complete own grooming.) Bathing (FIM): 6 (Using grabbar, long handle sponge and shower chair pt is able to complete by self.) Bathing Location: L Arm, R Arm, L Upper Leg, R Upper Leg, L Lower Leg ( including foot), R Lower Leg (including foot), Chest, Abdomen, Buttocks, Perineal Area Upper Body (FIM): 6 (Using FWW pt retrieves clothing and is able to don/doff by self.) Lower Body Dressing (FIM): 6 (Using FWW pt retrieves clothing and is able to don/doff by self using AE for lower body dressing.) Toileting (FIM): 6 (Using elevated seat, grabbars and FWW pt is able to complete by self.) Transfers (B, C, W/C) (FIM): 6 (Using FWW pt is able to complete by self.) Toilet/Commode Transfer (FIM): 6 (Using elevated seat, grabbars and FWW pt is able to complete by self.) Shower Transfer(FIM): 6 (Using FWW, grabbars and shower seat pt is able to complete by self.) After therapy, pt sitting in recliner with call light/phone in reach. All needs met in room. OT Short Term Goals Short Term Goals Lower Body Dressing(FIM): 5 Toilet/Commode Transfer(FIM): 5 Additional Short Term Goals: 2-Verbalize Understanding, 3-ImproveStrength/Omar 1=Demonstrate adherence to instructed precautions during ADL tasks. 2=Patient will verbalize/demonstrate understanding of assistive devices/ modifications for ADL. 3=Patient will improve strength/tolerance for activity to enable patient to perform ADL's. OT Community Associate Goals Longterm Goals Time Frame: Oct 30, 2016 Eating (FIM): 6 Eating (QC): 6 Groomin (met-10/14/2016) Oral Hygiene (QC): 6 Bathing(FIM): 6 Shower/Bathe Self (QC): 6 Upper Body Dressing(FIM): 6 Upper Body Dressing (QC): 6 Lower Body Dressing(FIM): 6 Lower Body Dressing (QC): 6 On/Off Footwear (QC): 6 Toileting(FIM): 6 Toileting Hygiene (QC): 6 Toilet/Commode Transfer(FIM): 6 Toilet/Commode Transfer (QC): 6 Shower Transfer(FIM): 6 Additional Goals: 2-Verbalize Understanding, 3-ImproveStrength/Omar 1=Demonstrate adherence to instructed precautions during ADL tasks. 2=Patient will verbalize/demonstrate understanding of assistive devices/ modifications for ADL. 3=Patient will improve strength/tolerance for activity to enable patient to perform ADL's. OT Education/Plan Problem List/Assessment Pt would benefit from skilled OT to increase his independence in basic self care to allow him to safely return to his home to live with his and to decrease caregiver burden. Discharge Recommendations Plan/Recommendations: Continue POC Treatment Plan/Plan of Care Patient would benefit from OT for education, treatment and training to promote independence in ADL's, mobility, safety and/or upper extremity function for ADL' s. Plan of Care: ADL Retraining, Caregiver Training, Functional Mobility, Group Exercise/Act as Ind (education, activity tolerance, exercise, functional activities, socialization), UE Funct Exercise/Act, UE Neuromus Re-Ed/Coord Treatment Duration: Oct 30, 2016 Frequency: Twice Daily (M-F, PRN on weekends) Estimated Hrs Per Day: 1.5 hours per day (M-F, PRN of weekends) Agreement: Yes Rehab Potential: Good Time/GCodes Start Time: 08:00 Stop Time: 09:00 Total Time Billed (hr/min): 60 Billed Treatment Time 1 visit-ADL 4 (60 min) YESSI STOCKTON Oct 16, 2016 08:59
--- NOTE | 2016-10-16 10:59 | Physical Therapy Daily Note ---
PT Daily Note-Current Subjective Patient is very agreeable to participate with PT. Patient is up ad merlene in room and hallway PRN. Pain Numeric Pain Scale: 3 Location: Left Location Body Site: Hip Pain Description: Ache Mental Status Patient Orientation: Normal For Age Transfers Functional [place] Measure 0=Not Assessed/NA 4=Minimal Assistance 1=Total Assistance 5=Supervision or Setup 2=Maximal Assistance 6=Modified [place] 3=Moderate Assistance 7=Complete IndependenceIRFPAI Quality Coding Scale 6 Independent with activity with or without an assistive device 5 Patient requires set up or clean up by helper. Patient completes activity by themselves 4 Supervision or touching assist (CGA). [place] provide cues , steadying assist 3 The helper provides less than half the effort to complete the activity 2 The helper provides more than half the effort to complete the activity 1 Dependent. The helper does all the effort to complete an activity 7 Patient refused to complete or attempt activity 9 The patient did not perform the activity before the current illness or injury 88 Not attempted due to Medical conditions or safety concerns Transfers (B, C, W/C) (FIM): 6 Scootin Rollin Roll Left to Right (QC): 6 Supine to/from Sit: 6 Sit to/from Stand: 6 Sit to Lying (QC): 6 Sit to Stand (QC): 6 Car Transfer (QC): 6 Gait Training Does the Patient Walk?: Yes Gait (FIM): 6 Distance (FIM): 3=150 ft Distance: 500' x 3; 200' x 2 Walk 10 feet (QC): 5 Walk 50 ft with 2 Turns(QC): 5 Walk 150 ft (QC): 5 Walking 10ft/uneven surface-QC: 5 Gait Level of Assist: 6 Gait Assistive Device: FWW safe and functional gait sequence on all terrains inside and outside Exercises Supine Ex: Ankle pumps, Quad Set, Heel Slides, Short Arc Quads, Straight leg raise Supine Reps: 20 (bilateral LE ) Seated Therapy Exercises: Ankle pumps, Long arc quads Seated Reps: 20 (bilateral LE) NuStep Minutes: 10 (to facilitate stengthening to improve mobility) NuStep Workload: 4 Assessment Patient is progressing with treatment. Patient will transition to independent living room until dismissal on Wednesday the . PT Short Term Goals Short Term Goals Time Frame: Oct 16, 2016 PT Process Control Board Operator Goals Process Control Board Operator Goals PT Shelter Goals Time Frame: Oct 30, 2016 Transfers (B,C,W/C) (FIM): 6 Sit to Lying (QC): 6 Lying-Sitting on Side/Bed(QC): 6 Sit to Stand (QC): 6 Rollin Roll Left to Right (QC): 6 Chair/Baa-lt-Svwpe Xfer(QC): 6 Car Transfer (QC): 5 Does the Patient Walk: Yes Gait (FIM): 6 Gait distance (FIM): 3=150 ft Distance: 150' Walk 10 feet (QC): 6 Walk 10ft-Uneven Surface(QC): 6 Walk 50ft with 2 Turns (QC): 6 Walk 150 ft (QC): 6 Gait Level of Assist: 6 Gait Assistive Device: FWW Does the Pt use WC or Scooter?: No Stairs (FIM): 6 # of Steps: 6 1 Step (curb) (QC): 6 4 Steps (QC): 6 12 Steps (QC): 6 Stairs Level Of Assist: 6 Picking up an Object (QC): 3 PT Plan Treatment/Plan Treatment Plan: Continue Plan of Care Treatment Plan: Bed Mobility, Education, Functional Activity Omar, Functional Strength, Group Therapy, Gait, Safety, Therapeutic Exercise, Transfers Treatment Duration: Oct 23, 2016 Frequency: At least 5-7 days/Wk (IRF) Estimated Hrs Per Day: 1.5 hours per day Patient and/or Family Agrees t: Yes Time/GCodes Time In: 958 Time Out: 1058 Total Billed Treatment Time: 60 Total Billed Treatment 1 visit EX x 2 30 min GT x 2 30 min AKIKO MITCHELL PT Oct 16, 2016 10:59
--- NOTE | 2016-10-16 11:06 | Progress Note-Hospitalist ---
Progress Note Progress Notes/Assess & Plan Date Seen 10/16/16 Time Seen by Provider: 10:30 Diagonsis/Assessment & Plan Patient Interview: Pt was ambulating halls upon interview Physical exam stable Pt is having BMs Confirms breathing treatments Chart Review: Max fever 99.5 otherwise normal AFVSS, Pleasant, O x 3, improved, walking RRR, CTAB subtle wheezing noted bases no edema Assessment: Acute left hip fracture s/p repair Sleep apnea noncompliant with CPAP HTN OA Obesity Wheezing on exam improved s/p ileus resolved now Plan: decrease dose of BP meds Ambulate Cont nebs Scribed by Andreia La under the direct supervision of Dr. Buckner. GARIMA BUCKNER DO Oct 16, 2016 11:06
[2016-10-16] MEDS ORDERED: VALS80TA PO (13:50)
[2016-10-16] MEDS ORDERED: HYDR-3812 PO (13:50)
--- NOTE | 2016-10-16 14:23 | Therapy Group Daily Note ---
Therapy Daily Group Note Other/Notes Each patient participated in group therapy in the common area of the rehab floor. Each patient ambulated or was transported to the common area to sit with the other patients. Then, each patient had to introduce themselves, state where they were from and answer a group question that involves memory and socialization. Then, each patient had to perform several upper extremity and shoulder exercises. Finally, patient had to participate in an activity/game that involved UE ROM, digital manipulation, memory, and problem solving. At the end of group therapy, each patient ambulated or was transported back to their room and put in bed or chair with nurse call, phone, tray, all needs met. Start Time: 13:00 Stop Time: 14:15 Total Billed Treatment Time: 75 Total Billed Treatment 1 visit GRP 75' TARAS VEGA PT Oct 16, 2016 14:22
[2016-10-16 15:13] VITALS: BP 108/63
[2016-10-16 18:17] VITALS: BP 95/56
[2016-10-17] MEDS: HYDROcodone/APAP 5 MG/325 MG (LORTAB) TAB PO PRN ×3 (05:33→19:59)
[2016-10-17 05:34] VITALS: BP 110/62
[2016-10-17 05:35] LABS: BASOPHILS % (AUTO) 0 % (0-10); EOSINOPHILS # (AUTO) 0.5 10^3/uL (0.0-0.3); EOSINOPHILS % (AUTO) 6 % (0-10); LYMPHOCYTES # (AUTO) 1.3 X 10^3 (1.0-4.0); LYMPHOCYTES % (AUTO) 17 % (12-44); MEAN CORPUSCULAR HEMOGLOBIN 31 PG (25-34); MEAN CORPUSCULAR HGB CONC 32 G/DL (32-36); MEAN CORPUSCULAR VOLUME 95 FL (80-99); MEAN PLATELET VOLUME 11.4 FL (7.4-10.4); MONOCYTES # (AUTO) 0.6 X 10^3 (0.0-1.0); MONOCYTES % (AUTO) 7 % (0-12); NEUTROPHILS # (AUTO) 5.3 X 10^3 (1.8-7.8); NEUTROPHILS % (AUTO) 69 % (42-75); PLATELET COUNT 322 10^3/uL (130-400); RED BLOOD COUNT 3.47 10^6/uL (4.35-5.85); RED CELL DISTRIBUTION WIDTH 13.7 % (10.0-14.5); WHITE BLOOD COUNT 7.6 10^3/uL (4.3-11.0)
[2016-10-17 06:16] LABS: ALBUMIN 3.3 GM/DL (3.2-4.5); BILIRUBIN,TOTAL 0.6 MG/DL (0.1-1.0); CALCIUM 9.1 MG/DL (8.5-10.1); CREATININE SERUM 1.53 MG/DL (0.60-1.30); TOTAL PROTEIN 6.2 GM/DL (6.4-8.2)
[2016-10-17 08:14] VITALS: BP 106/60
[2016-10-17] MEDS: RT-ALBUTEROL/IPRATROPIUM 3 ML (DUONEB) VIAL INH SCH ×2 (08:16→19:08)
[2016-10-17] MEDS: LACTULOSE SYRUP 10GM/15ML (ENULOSE) 30ML UDC PO SCH ×3 (08:22→19:59)
[2016-10-17] MEDS: VALSARTAN 80 MG (DIOVAN) TAB PO SCH (08:23)
[2016-10-17] MEDS: ASPIRIN E.C. 81 MG (ECOTRIN) TAB PO SCH (08:23)
--- NOTE | 2016-10-17 09:33 | Physical Therapy Daily Note ---
PT Daily Note-Current Subjective Patient is up in recliner and agrees to PT. Pain Numeric Pain Scale: 0-No Pain Location: No Pain Reported Mental Status Patient Orientation: Normal For Age Transfers Functional [place] Measure 0=Not Assessed/NA 4=Minimal Assistance 1=Total Assistance 5=Supervision or Setup 2=Maximal Assistance 6=Modified [place] 3=Moderate Assistance 7=Complete IndependenceIRFPAI Quality Coding Scale 6 Independent with activity with or without an assistive device 5 Patient requires set up or clean up by helper. Patient completes activity by themselves 4 Supervision or touching assist (CGA). [place] provide cues , steadying assist 3 The helper provides less than half the effort to complete the activity 2 The helper provides more than half the effort to complete the activity 1 Dependent. The helper does all the effort to complete an activity 7 Patient refused to complete or attempt activity 9 The patient did not perform the activity before the current illness or injury 88 Not attempted due to Medical conditions or safety concerns Transfers (B, C, W/C) (FIM): 6 Scootin Sit to/from Stand: 6 Sit to Stand (QC): 5 Weight Bearing Weight Bearing Restriction: Weight Bearing/Tolerated Location Restriction: L LE Gait Training Does the Patient Walk?: Yes Gait (FIM): 6 Distance (FIM): 3=150 ft Distance: 500' Walk 10 feet (QC): 5 Walk 50 ft with 2 Turns(QC): 5 Walk 150 ft (QC): 5 Gait Level of Assist: 6 Gait Assistive Device: FWW safe and functional gait sequence with use of FWW; patient encourage to ambulate PRN in hallway to increase functional strength and mobility Exercises Seated Therapy Exercises: Ankle pumps, Long arc quads Seated Reps: 25 (2 sets) Assessment Patient tolerated treatment well. Ambulation utilized to facilitate postural strength to improve functional mobility. Patient to dismiss to home in 2 days with family support. PT Short Term Goals Short Term Goals Time Frame: Oct 16, 2016 PT Prison Goals Prison Goals PT Utility Worker Production Goals Time Frame: Oct 30, 2016 Transfers (B,C,W/C) (FIM): 6 Sit to Lying (QC): 6 Lying-Sitting on Side/Bed(QC): 6 Sit to Stand (QC): 6 Rollin Roll Left to Right (QC): 6 Chair/Yvs-wf-Hplzt Xfer(QC): 6 Car Transfer (QC): 5 Does the Patient Walk: Yes Gait (FIM): 6 Gait distance (FIM): 3=150 ft Distance: 150' Walk 10 feet (QC): 6 Walk 10ft-Uneven Surface(QC): 6 Walk 50ft with 2 Turns (QC): 6 Walk 150 ft (QC): 6 Gait Level of Assist: 6 Gait Assistive Device: FWW Does the Pt use WC or Scooter?: No Stairs (FIM): 6 # of Steps: 6 1 Step (curb) (QC): 6 4 Steps (QC): 6 12 Steps (QC): 6 Stairs Level Of Assist: 6 Picking up an Object (QC): 3 PT Plan Treatment/Plan Treatment Plan: Continue Plan of Care Treatment Plan: Bed Mobility, Education, Functional Activity Omar, Functional Strength, Group Therapy, Gait, Safety, Therapeutic Exercise, Transfers Treatment Duration: Oct 23, 2016 Frequency: At least 5-7 days/Wk (IRF) Estimated Hrs Per Day: 1.5 hours per day Patient and/or Family Agrees t: Yes Time/GCodes Time In: 915 Time Out: 930 Total Billed Treatment Time: 15 Total Billed Treatment 1 visit FA 15 min AKIKO MITCHELL PT Oct 17, 2016 09:33
[2016-10-17 18:38] VITALS: BP 108/65
[2016-10-18] MEDS: HYDROcodone/APAP 5 MG/325 MG (LORTAB) TAB PO PRN ×3 (05:17→20:25)
[2016-10-18 05:18] VITALS: BP 99/62
[2016-10-18] MEDS: RT-ALBUTEROL/IPRATROPIUM 3 ML (DUONEB) VIAL INH SCH ×2 (07:18→19:21)
[2016-10-18] MEDS: VALSARTAN 80 MG (DIOVAN) TAB PO SCH (09:16)
[2016-10-18] MEDS: LACTULOSE SYRUP 10GM/15ML (ENULOSE) 30ML UDC PO SCH ×2 (09:16→20:21)
[2016-10-18] MEDS: ASPIRIN E.C. 81 MG (ECOTRIN) TAB PO SCH (09:16)
[2016-10-18 18:18] VITALS: BP 94/56
[2016-10-19] MEDS: HYDROcodone/APAP 5 MG/325 MG (LORTAB) TAB PO PRN ×3 (03:09→12:22)
[2016-10-19 04:17] VITALS: BP 146/71
[2016-10-19] MEDS: RT-ALBUTEROL/IPRATROPIUM 3 ML (DUONEB) VIAL INH SCH (06:59)
[2016-10-19] MEDS: ASPIRIN E.C. 81 MG (ECOTRIN) TAB PO SCH (08:23)
[2016-10-19] MEDS: VALSARTAN 80 MG (DIOVAN) TAB PO SCH (08:23)
[2016-10-19] MEDS: LACTULOSE SYRUP 10GM/15ML (ENULOSE) 30ML UDC PO SCH (08:25)
--- NOTE | 2016-10-19 08:26 | Physical Therapy Daily Note ---
PT Daily Note-Current Subjective Patient in recliner pre tx, agrees to PT, has pain of 8/10 in left hip, nurse notified and will be bringing him some pain meds. Appearance Patient in recliner post tx with nurse call, phone, tray, all needs met. Mental Status Patient Orientation: Normal For Age Transfers Functional [place] Measure 0=Not Assessed/NA 4=Minimal Assistance 1=Total Assistance 5=Supervision or Setup 2=Maximal Assistance 6=Modified [place] 3=Moderate Assistance 7=Complete IndependenceIRFPAI Quality Coding Scale 6 Independent with activity with or without an assistive device 5 Patient requires set up or clean up by helper. Patient completes activity by themselves 4 Supervision or touching assist (CGA). [place] provide cues , steadying assist 3 The helper provides less than half the effort to complete the activity 2 The helper provides more than half the effort to complete the activity 1 Dependent. The helper does all the effort to complete an activity 7 Patient refused to complete or attempt activity 9 The patient did not perform the activity before the current illness or injury 88 Not attempted due to Medical conditions or safety concerns Transfers (B, C, W/C) (FIM): 6 Scootin Rollin Roll Left to Right (QC): 6 Supine to/from Sit: 6 Sit to/from Stand: 6 Sit to Lying (QC): 6 Sit to Stand (QC): 6 Chair/Jsn-ln-Wjwzh Xfer(QC): 6 Bed to/from Chair: 6 Patient performs bed mobility and transfers with mod I. Gait Training Gait (FIM): 6 Distance: 500' Walk 10 feet (QC): 6 Walk 50 ft with 2 Turns(QC): 6 Walk 150 ft (QC): 6 Walking 10ft/uneven surface-QC: 6 Gait Level of Assist: 6 Gait Assistive Device: FWW Patient can ambulate 500' with a rolling walker with mod I, including 50' with at least 2 turns of 90 degrees and 10' over an uneven surface. Wheelchair Training Does the Pt Use a Wheelchair?: No Stair Training Stair Training: Handrails/: 1 handrail Stairs (FIM): 6 #of Steps: 12 1 Step (curb) (QC): 6 4 Steps (QC): 6 12 Steps (QC): 6 Stairs: Pattern: Step to Patient can go up and down 12 steps using 1 handrail with mod I. Balance Picking up an Object (QC): 88 Treatments bed mobility and transfers, ambulation, stair training Assessment Current Status: Fair Progress Safe transfers and ambulation, no cues needed for safety or hand placement or positioning. PT Short Term Goals Short Term Goals Time Frame: Oct 16, 2016 PT Care Home Goals Gold Assayer Goals PT Care Home Goals Time Frame: Oct 30, 2016 Transfers (B,C,W/C) (FIM): 6 (met) Sit to Lying (QC): 6 (met) Lying-Sitting on Side/Bed(QC): 6 (met) Sit to Stand (QC): 6 (met) Rollin (met) Roll Left to Right (QC): 6 (met) Chair/Woc-wc-Xpwhu Xfer(QC): 6 (met) Car Transfer (QC): 5 Does the Patient Walk: Yes Gait (FIM): 6 (met) Gait distance (FIM): 3=150 ft Distance: 150' Walk 10 feet (QC): 6 (met) Walk 10ft-Uneven Surface(QC): 6 (met) Walk 50ft with 2 Turns (QC): 6 (met) Walk 150 ft (QC): 6 (met) Gait Level of Assist: 6 (met) Gait Assistive Device: FWW Does the Pt use WC or Scooter?: No Stairs (FIM): 6 (met) # of Steps: 6 (met) 1 Step (curb) (QC): 6 (met) 4 Steps (QC): 6 (met) 12 Steps (QC): 6 (met) Stairs Level Of Assist: 6 (met) Picking up an Object (QC): 3 PT Plan Problem List Problem List: Activity Tolerance, Functional Strength, Safety, Balance, Gait, Transfer Treatment/Plan Treatment Plan: Discontinue PT Treatment Plan: Bed Mobility, Education, Functional Activity Omar, Functional Strength, Group Therapy, Gait, Safety, Therapeutic Exercise, Transfers Patient is discharging from this facility today. Treatment Duration: Oct 23, 2016 Frequency: At least 5-7 days/Wk (IRF) Estimated Hrs Per Day: 1.5 hours per day Patient and/or Family Agrees t: Yes Safety Risks/Education Patient Education: Gait Training, Transfer Techniques, Steps, Safety Issues Teaching Recipient: Patient Teaching Methods: Demonstration, Discussion Response to Teaching: Reinforcement Needed Discharge Recommendations Plan DC today. Time/GCodes Time In: 800 Time Out: 825 Total Billed Treatment Time: 25 Total Billed Treatment 1 visit GT 10' FA 20' TARAS VEGA PT Oct 19, 2016 08:26
--- NOTE | 2016-10-19 08:49 | Therapy Team Discharge Summary ---
Therapy Discharge Summary Discharge Recommendations Date of Discharge 10/19/16 Therapy D/C Recommendations: Home w/ Family Support Physical Therapy Patient came to rehab following a left hip fracture. Upon evaluation patient performed bed mobility with min/mod assist and transfers with min assist, ambulated 150' with a rolling walker with CGA, and went up and down 1 step using a rolling walker with CGA/[place]. Patient has been performing bed mobility and transfers, balance and endurance training, functional strengthening, stair training, and gait training. Patient has made good progress and has met all of his longterm goals except for picking an object up off of the floor. 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 Patient is being discharged from this facility today and will be discharged from PT at this time. PT Pipe Fitter Goals Pipe Fitter Goals PT Long-Term Goals Time Frame: Oct 30, 2016 Transfers (B,C,W/C) (FIM): 6 (met) Roll Left to Right (QC): 6 (met) Sit to Lying (QC): 6 (met) Lying-Sitting on Side/Bed(QC): 6 (met) Sit to Stand (QC): 6 (met) Chair/Fhz-kf-Grauf Xfer(QC): 6 (met) Car Transfer (QC): 5 Does the Patient Walk: Yes Gait (FIM): 6 (met) Gait distance (FIM): 3=150 ft Distance: 150' Walk 10 feet (QC): 6 (met) Walk 10ft-Uneven Surface(QC): 6 (met) Walk 50ft with 2 Turns (QC): 6 (met) Walk 150 ft (QC): 6 (met) Gait Level of Assist: 6 (met) Gait Assistive Device: FWW Does the Pt use WC or Scooter?: No Stairs (FIM): 6 (met) # of Steps: 6 (met) 1 Step (curb) (QC): 6 (met) 4 Steps (QC): 6 (met) 12 Steps (QC): 6 (met) Stairs Level Of Assist: 6 (met) Picking up an Object (QC): 3 OT Long-Term Goals Pipe Fitter Goals Time Frame: Oct 30, 2016 Eating (FIM): 6 Eating (QC): 6 Oral Hygiene (QC): 6 Grooming(FIM): 6 (met-10/14/2016) Bathing(FIM): 6 Shower/Bathe Self (QC): 6 Upper Body Dressing(FIM): 6 Upper Body Dressing (QC): 6 Lower Body Dressing(FIM): 6 Lower Body Dressing (QC): 6 On/Off Footwear (QC): 6 Toileting(FIM): 6 Toileting Hygiene (QC): 6 Toilet/Commode Transfer(FIM): 6 Toilet/Commode Transfer (QC): 6 Shower Transfer(FIM): 6 Additional Goals: 2-Verbalize Understanding, 3-ImproveStrength/Omar 1=Demonstrate adherence to instructed precautions during ADL tasks. 2=Patient will verbalize/demonstrate understanding of assistive devices/ modifications for ADL. 3=Patient will improve strength/tolerance for activity to enable patient to perform ADL's. TARAS VEGA PT Oct 19, 2016 08:49
--- NOTE | 2016-10-19 08:56 | Occupational Ther Daily Note ---
OT Current Status-Daily Note Subjective Pt alert, sitting in recliner. Pt agreed to therapy. No c/o pain at this time. Pt is discharging today. Mental Status/Objective Patient Orientation: Person, Place, Time, Situation Functional [place] Measure 0=Not Assessed/NA 4=Minimal Assistance 1=Total Assistance 5=Supervision or Setup 2=Maximal Assistance 6=Modified [place] 3=Moderate Assistance 7=Complete [place] ADL-Treatment Pt has tub/shower at home and has been working on stepping into tub using grabbars, shower seat and FWW. Pt is mod I for all ADLs. After therapy, pt sitting in recliner with call light/phone in reach. All needs met in room. Functional [place] Measure 0=Not Assessed/NA 4=Minimal Assistance 1=Total Assistance 5=Supervision or Setup 2=Maximal Assistance 6=Modified [place] 3=Moderate Assistance 7=Complete IndependenceIRFPAI Quality Coding Scale 6 Independent with activity with or without an assistive device 5 Patient requires set up or clean up by helper. Patient completes activity by themselves 4 Supervision or touching assist (CGA). [place] provide cues , steadying assist 3 The helper provides less than half the effort to complete the activity 2 The helper provides more than half the effort to complete the activity 1 Dependent. The helper does all the effort to complete an activity 7 Patient refused to complete or attempt activity 9 The patient did not perform the activity before the current illness or injury 88 Not attempted due to Medical conditions or safety concerns Eating (FIM): 6 (Pt able to set self up and use regular utensils to cut food and feed self.) Eating (QC): 6 (Pt able to set self up and use regular utensils to cut food and feed self.) Grooming (FIM): 6 (Using FWW, pt stands at sink and completes task.) Oral Hygiene (QC): 6 (Using FWW, pt stands at sink and completes task.) Bathing (FIM): 6 (Using grabbars, shower chair, long handle sponge and hand held shower pt is able to complete by self.) Bathing Location: L Arm, R Arm, L Upper Leg, R Upper Leg, L Lower Leg ( including foot), R Lower Leg (including foot), Chest, Abdomen, Buttocks, Perineal Area Shower/Bathe Self (QC): 6 (Using grabbars, shower chair, long handle sponge and hand held shower pt is able to complete by self.) Upper Body (FIM): 6 (Pt able to retrieve own clothes with FWW and then don/ doff by self.) Upper Body Dressing (QC): 6 (Pt able to retrieve own clothes with FWW and then don/doff by self.) Lower Body Dressing (FIM): 6 (Pt able to retrieve own clothes with FWW and then don/doff by self using AE to don/doff socks.) Lower Body Dressing (QC): 6 (Pt able to retrieve own clothes with FWW and then don/doff by self using AE to don/doff socks.) On/Off Footwear (QC): 6 (using AE to don/doff socks.) Toileting (FIM): 6 (Using FWW and grabbars, pt is able to complete by self.) Toileting Hygiene (QC): 6 (Using FWW and grabbars, pt is able to complete by self.) Transfers (B, C, W/C) (FIM): 6 (Using FWW, pt is able to complete by self.) Toilet/Commode Transfer (FIM): 6 (Using FWW and grabbars, pt is able to complete by self.) Toilet Transfer (QC): 6 (Using FWW and grabbars, pt is able to complete by self.) Tub Transfer(FIM): 6 (Using FWW and grabbars, pt is able to complete by self.) Shower Transfer(FIM): 6 (Using FWW and grabbars, pt is able to complete by self.) OT Short Term Goals Short Term Goals Lower Body Dressing(FIM): 5 Toilet/Commode Transfer(FIM): 5 Additional Short Term Goals: 2-Verbalize Understanding, 3-ImproveStrength/Omar 1=Demonstrate adherence to instructed precautions during ADL tasks. 2=Patient will verbalize/demonstrate understanding of assistive devices/ modifications for ADL. 3=Patient will improve strength/tolerance for activity to enable patient to perform ADL's. OT Kitchen Hand Goals Kitchen Hand Goals Time Frame: Oct 30, 2016 Eating (FIM): 6 (met-10/19/2016) Eating (QC): 6 (met-10/19/2016) Groomin (10/14/2016) Oral Hygiene (QC): 6 (10/19/2016) Bathing(FIM): 6 (10/19/2016) Bathing Location: L Arm, R Arm, L Upper Leg, R Upper Leg, L Lower Leg ( including foot), R Lower Leg (including foot), Chest, Abdomen, Buttocks, Perineal Area Shower/Bathe Self (QC): 6 (10/19/2016) Upper Body Dressing(FIM): 6 (10/19/2016) Upper Body Dressing (QC): 6 (10/19/2016) Lower Body Dressing(FIM): 6 (10/19/2016) Lower Body Dressing (QC): 6 (10/19/2016) On/Off Footwear (QC): 6 (10/19/2016) Toileting(FIM): 6 (10/19/2016) Toileting Hygiene (QC): 6 (10/19/2016) Toilet/Commode Transfer(FIM): 6 (10/19/2016) Toilet/Commode Transfer (QC): 6 (10/19/2016) Shower Transfer(FIM): 6 (10/19/2016) Additional Goals: 2-Verbalize Understanding, 3-ImproveStrength/Omar 1=Demonstrate adherence to instructed precautions during ADL tasks. 2=Patient will verbalize/demonstrate understanding of assistive devices/ modifications for ADL. 3=Patient will improve strength/tolerance for activity to enable patient to perform ADL's. OT Education/Plan Problem List/Assessment Pt would benefit from skilled OT to increase his independence in basic self care to allow him to safely return to his home to live with his and to decrease caregiver burden. Discharge Recommendations Plan/Recommendations: Continue POC Treatment Plan/Plan of Care Patient would benefit from OT for education, treatment and training to promote independence in ADL's, mobility, safety and/or upper extremity function for ADL' s. Plan of Care: ADL Retraining, Caregiver Training, Functional Mobility, Group Exercise/Act as Ind (education, activity tolerance, exercise, functional activities, socialization), UE Funct Exercise/Act, UE Neuromus Re-Ed/Coord Treatment Duration: Oct 30, 2016 Frequency: Twice Daily (M-F, PRN on weekends) Estimated Hrs Per Day: 1.5 hours per day (M-F, PRN of weekends) Agreement: Yes Rehab Potential: Good Time/GCodes Start Time: 08:40 Stop Time: 09:20 Total Time Billed (hr/min): 40 Billed Treatment Time 1 visit-ADL 3 (40 min) YESSI STOCKTON Oct 19, 2016 08:56
[2016-10-19 12:30] VITALS: BP 138/88
--- NOTE | 2016-10-19 13:39 | Therapy Team Discharge Summary ---
Therapy Discharge Summary Discharge Recommendations Date of Discharge Oct 19, 2016 at 12:30 Therapy D/C Recommendations: Home w/ Family Support Occupational Therapy Pt was seen for skilled OT to increase his independence in basic self care to allow him to return home to live safely with , with family support. On admission, he was modified independent with eating; required setup for grooming and upper body dressing; CGA to min assist for bathing, toileting, toilet and shower transfers; mod assist with lower body dressing. By discharge he was modified independent with all basic ADLs, using FWW, grab bars, shower bench, long handled sponge, assistive devices for doffing/donning socks and shoes. Pt declined continued therapy post-discharge. See tx plan for goals met. DC OT PT Assisted Goals Animal Feeder Goals PT Animal Feeder Goals Time Frame: Oct 30, 2016 Transfers (B,C,W/C) (FIM): 6 (met) Roll Left to Right (QC): 6 (met) Sit to Lying (QC): 6 (met) Lying-Sitting on Side/Bed(QC): 6 (met) Sit to Stand (QC): 6 (met) Chair/Lek-ff-Gtzzw Xfer(QC): 6 (met) Car Transfer (QC): 5 Does the Patient Walk: Yes Gait (FIM): 6 (met) Gait distance (FIM): 3=150 ft Distance: 150' Walk 10 feet (QC): 6 (met) Walk 10ft-Uneven Surface(QC): 6 (met) Walk 50ft with 2 Turns (QC): 6 (met) Walk 150 ft (QC): 6 (met) Gait Level of Assist: 6 (met) Gait Assistive Device: FWW Does the Pt use WC or Scooter?: No Stairs (FIM): 6 (met) # of Steps: 6 (met) 1 Step (curb) (QC): 6 (met) 4 Steps (QC): 6 (met) 12 Steps (QC): 6 (met) Stairs Level Of Assist: 6 (met) Picking up an Object (QC): 3 OT Assisted Goals Animal Feeder Goals Time Frame: Oct 30, 2016 Eating (FIM): 6 (met-10/19/2016) Eating (QC): 6 (met-10/19/2016) Oral Hygiene (QC): 6 (met-10/19/2016) Grooming(FIM): 6 (10/14/2016) Bathing(FIM): 6 (10/19/2016) Bathing Location: L Arm, R Arm, L Upper Leg, R Upper Leg, L Lower Leg ( including foot), R Lower Leg (including foot), Chest, Abdomen, Buttocks, Perineal Area Shower/Bathe Self (QC): 6 (10/19/2016) Upper Body Dressing(FIM): 6 (10/19/2016) Upper Body Dressing (QC): 6 (10/19/2016) Lower Body Dressing(FIM): 6 (10/19/2016) Lower Body Dressing (QC): 6 (10/19/2016) On/Off Footwear (QC): 6 (10/19/2016) Toileting(FIM): 6 (10/19/2016) Toileting Hygiene (QC): 6 (10/19/2016) Toilet/Commode Transfer(FIM): 6 (10/19/2016) Toilet/Commode Transfer (QC): 6 (10/19/2016) Shower Transfer(FIM): 6 (10/19/2016) Additional Goals: 2-Verbalize Understanding, 3-ImproveStrength/Omar 1=Demonstrate adherence to instructed precautions during ADL tasks. 2=Patient will verbalize/demonstrate understanding of assistive devices/ modifications for ADL. 3=Patient will improve strength/tolerance for activity to enable patient to perform ADL's. ISRA BLACKWOOD OT Oct 19, 2016 13:39
--- NOTE | 2016-10-19 14:42 | PM & R (SOAP) Progress Note ---
Subjective Time Seen by Provider: 11:45 Subjective/Events-last exam Patient was seen in his room this AM Has progressed well Discussed case with RN Patient will have f/u with PCP and ortho DR Caceres Objective Exam Last Set of Vital Signs Vital Signs Date Time Temp Pulse Resp B/P (MAP) Pulse Ox O2 Delivery O2 Flow Rate FiO2 10/19/16 12:30 85 20 138/88 98 Room Air 10/19/16 04:17 98.8 Capillary Refill : Less Than 3 Seconds I&O Intake and Output 10/19/16 00:00 Intake Total 2330 ml Balance 2330 ml Intake Oral 2330 ml # Voids 6 General: Alert, Oriented X3, Cooperative, No Acute Distress HEENT: Atraumatic, PERRLA, EOMI, Mucous Memb Moist/[place] Neck: Supple, No JVD Lungs: Clear to Auscultation Heart: Regular Rate Abdomen: Normal Bowel Sounds, Soft, No Tenderness Extremities: No Edema Neuro: Other (limited strength Left hip due to frx and repair) Results Lab Laboratory Tests 10/17/16 05:05: White Blood Count 7.6, Red Blood Count 3.47L, Hemoglobin 10.7L, Hematocrit 33L, Mean Corpuscular Volume 95, Mean Corpuscular Hemoglobin 31, Mean Corpuscular Hemoglobin Concent 32, Red Cell Distribution Width 13.7, Platelet Count 322, Mean Platelet Volume 11.4H, Neutrophils (%) (Auto) 69, Lymphocytes (%) (Auto) 17 , Monocytes (%) (Auto) 7, Eosinophils (%) (Auto) 6, Basophils (%) (Auto) 0, Neutrophils # (Auto) 5.3, Lymphocytes # (Auto) 1.3, Monocytes # (Auto) 0.6, Eosinophils # (Auto) 0.5H, Basophils # (Auto) 0.0, Sodium Level 136, Potassium Level 4.0, Chloride Level 101, Carbon Dioxide Level 22, Anion Gap 13, Blood Urea Nitrogen 25H, Creatinine 1.53H, Estimat Glomerular Filtration Rate 44, BUN/ Creatinine Ratio 16, Glucose Level 97, Calcium Level 9.1, Total Bilirubin 0.6, Aspartate Amino Transf (AST/SGOT) 17, Alanine Aminotransferase (ALT/SGPT) 14, Alkaline Phosphatase 86, Total Protein 6.2L, Albumin 3.3 Assessment/Plan Assessment S/P repair frx left hip MANUEL noncompliant with CPAP HTN controlled with meds Postop ileus improve with DR Holguin RX OA Obesity Plan Discharged today to home with family and HHC F/U with ortho and PCP See orders. DOMINIQUE LIU MD Oct 19, 2016 14:42
--- NOTE | 2016-10-28 11:54 | DISCHARGE SUMMARY ---
DATE OF ADMISSION: 10/09/2016 DATE OF DISCHARGE: 10/19/2016 HISTORY OF PRESENT ILLNESS: This patient is a 76-year-old male who was admitted to [facility] on 10/05 due to an acute left hip fracture. The patient underwent repair with orthopedics. He is a clinic patient of Dr. Herring. He was followed by hospitalist service. He had postoperative complications of ileus. This was treated by Dr. Koroma. The patient had been independent prior to this and living with his spouse in [place], [place]. He had a decline in his functional independence. Therapies were begun. He was felt to be appropriate for Inpatient Rehabilitation Unit and transfer was accomplished. PAST MEDICAL HISTORY: 1. Sleep apnea, noncompliant with CPAP. 2. Hypertension. 3. Osteoarthritis. 4. Obesity. SOCIAL HISTORY: He has participated in [employer] as a youth and has a fractured left wrist with repair. left ankle fracture with repair and recent left hip fracture repair as per above. He is retired. MEDICAL COURSE: The patient was followed by Dr. Abarca and hospitalist service while on rehab unit. His blood pressure was trending down. Dr. Buckner decreased his blood pressure medications. On 10/19 his pulse was 85, respirations 20, blood pressure 138/88, O2 sat 98% on room air. He was afebrile during his stay. CBC on 10/17 showed WBC 7.6, hemoglobin and hematocrit 10.7/33, platelet count 322,000. Chemistry on 10/17 showed BUN 25, creatinine 1.53. Normal electrolytes, total protein low at 6.2, albumin 3.3. Blood glucose 97, calcium 9.1. REHABILITATION COURSE: He progressed well with his therapies. He had increased strength and endurance, decreased pain. His incision was healing well. Speech therapy did cognitive assessment upon admission to rehab unit and found him to be intact and they signed off. PT notes upon admission, the patient performed bed mobility with min to mod assist and transfers with min assist, could ambulate 150 feet with a wheeled walker with contact guard assist and went up and down one step using a wheeled walker with contact guard to minimal assist. The patient has made good progress and upon discharge. The patient is modified independent for bed mobility, and transfers, could ambulate 500 feet with a wheeled walker with modified independence. OT notes that upon admission, he was modified independent with eating, but requires set up for grooming, upper body dressing. He is contact guard to minimal assist for bathing, toileting, toilet and shower transfers. Mod assist for lower body dressing. By discharge she was modified independent with all his basic ADLs using front wheel walker, grab bar, shower bench, long handle sponge assisted devices for donning and doffing his socks and shoes. The patient declined continued therapy post discharge DISCHARGE INSTRUCTIONS: The patient will follow-up with Dr. Caceres orthopedics and Dr. Herring, PCP. Continue current diet. Home health services if patient accepts. DISCHARGE MEDICATIONS: 1. Hydrocodone APAP 5/325, 1 to 2 tablets p.o. q.4 hours p.r.n. moderate pain. 2. Diovan 80 mg p.o. daily. 3. ASA 81 mg p.o. daily. DISCHARGE DIAGNOSES: 1. Rehabilitation ambulatory dysfunction secondary to intracapsular fracture of the left femur, status post repair, Dr. Caceres orthopedics weight-bearing as tolerated, [facility]. 2. Sleep apnea noncompliant with CPAP. 3. Hypertension, controlled with medication. 4. Osteoarthritis. 5. Obesity. 6. BMI 40.5 7. Postoperative anemia. 8. Renal insufficiency due to hypertension. CONDITION AT DISCHARGE: Improved and stable. PROGNOSIS: Rehab prognosis appears good for continued improvement at home and return to independent living with spouse to assist as needed. Job ID: [id number] Dictated Date: 10/28/2016 10:41:40 Container Coordinator Date: 10/28/2016 11:39:54/marisol
== END 2016-10-19 12:30 | disposition home or self-care (01) | DRG 560 ==
LOC: ENPENDDIS 10-19 12:00
PROVIDERS: ADMIT Physical Medicine & Rehabilitation; ATTEND Physical Medicine & Rehabilitation
DX: S72.012D Unspecified intracapsular fracture of left femur, subsequent encounter for closed fracture with routine healing; Z68.41 Body mass index [BMI] 40.0-44.9, adult; G47.33 Obstructive sleep apnea (adult) (pediatric); M19.90 Unspecified osteoarthritis, unspecified site; I10 Essential (primary) hypertension; E66.9 Obesity, unspecified; R26.2 Difficulty in walking, not elsewhere classified; Z91.19 Patient's noncompliance with other medical treatment and regimen
CPT/HCPCS: 36415; 80053; 85025; 94640; 94664; 94760

== ENCOUNTER → 2022-08-26 | Outpatient (CLI) | payer MEDICARE ==
[~2022-08-26] MED LIST changes: +ACHD5005 PO; +ASPI-1238 PO; -ASPI-983 PO; -CIPR500T4 PO; +CIPR500T5 PO; -HYDR-3812 PO; -IPRA3AMP INH; +IPRA3AMP31 INH; -METO-370 PO; +METO50TA7 PO; -TRAM50TA2 PO; +TRM50T PO; +VALS80TA PO
== END ==
LOC: CARD 11:23
PROVIDERS: ATTEND Internal Medicine Cardiovascular Disease
DX: I08.0 Rheumatic disorders of both mitral and aortic valves (principal); I10 Essential (primary) hypertension; I25.10 Atherosclerotic heart disease of native coronary artery without angina pectoris
CPT/HCPCS: 93306

== ENCOUNTER → 2022-09-28 | Outpatient (CLI) | payer MEDICARE ==
[~2022-09-28] MED LIST changes: +REGADENOSON 0.4 MG/5 ML SYR (LEXISCAN) IV ONE
[2022-09-28] MEDS: CATHETER FLUSH 10 ML SYR IVP PRN ×2 (07:56→09:28)
[2022-09-28 09:23] VITALS: BP 215/97
--- NOTE | 2022-09-29 08:26 | Cardiology Stress Test Report ---
Stress Test Report Date of Procedure/Referring: Date of Procedure: Sep 28, 2022 PCP Beni Cronin Admitting Physician Admitting Physician: Attending Physician: Brielle Chandler MD Baseline Heart Rate: 65 Baseline Blood Pressure: Blood Pressure Systolic: 215 Blood Pressure Diastolic: 97 Baseline Vitals Vital Signs Date Time Temp Pulse Resp B/P (MAP) Pulse Ox O2 Delivery O2 Flow Rate FiO2 09/28/22 09:23 63 16 215/97 (136) 95 Room Air Baseline EKG: Baseline EKG: NSR Summary After explaining the procedure to the patient, he signed a consent and then brought to the stress nuclear laboratory. Patient received 0.4 mg Lexiscan for stress test, ECG, heart rate and blood pressure were monitored continuously. Resting and stress dose of radio tracer were injected, imaging was acquired and reviewed in short axis, horizontal long axis and vertical long axis views. TID: 0.98 SSS: 6 SDS: 4 EF: 53 Patient tolerated Lexiscan well Extracardiac attenuation affecting the quality of the images, overall there is no significant ischemia or infarction on SPECT images Normal left ventricular size, ejection fraction 53% Copy Copies To 1: [facility] – [place], [place] BRIELLE CHANDLER MD Sep 29, 2022 08:26
== END ==
LOC: CARD 07:12
PROVIDERS: ATTEND Internal Medicine Cardiovascular Disease
DX: I25.10 Atherosclerotic heart disease of native coronary artery without angina pectoris (principal)
CPT/HCPCS: 78452; 93017; A9502

== ENCOUNTER → 2022-10-19 | Outpatient (CLI) | payer MEDICARE ==
[~2022-10-19] MED LIST changes: -REGADENOSON 0.4 MG/5 ML SYR (LEXISCAN) IV ONE
--- NOTE | 2022-10-19 15:41 | Diagnostic Imaging Report ---
PROCEDURE: US Renal Bilateral. TECHNIQUE: Multiple Real-time grayscale images were obtained over the kidneys in various projections bilaterally. INDICATION: Chronic kidney disease. FINDINGS: The right kidney measures 12.1 x 4.2 x 7.9 cm and the left kidney measures 12.6 x 6.0 x 5.4 cm. The cortical thickness and echogenicity appear normal. There are bilateral renal cysts. The largest cyst on the right is approximately 2.1 cm. The largest cyst on the left is approximately 3.9 cm. No calculi are identified. There is no hydronephrosis. The bladder is grossly unremarkable. Bilateral ureteral jets are visualized. IMPRESSION: Bilateral renal cysts. There is no evidence of renal calculi or hydronephrosis. Dictated by: Dictated on workstation # [id number]
== END ==
LOC: RAD 10-16 14:23
PROVIDERS: ATTEND Internal Medicine Nephrology
DX: N28.1 Cyst of kidney, acquired (principal); I12.9 Hypertensive chronic kidney disease with stage 1 through stage 4 chronic kidney disease, or unspecified chronic kidney disease; N18.32 Chronic kidney disease, stage 3b; E55.9 Vitamin D deficiency, unspecified
CPT/HCPCS: 76770